=== PATIENT | female | born 1970 | race Caucasian/White ===

== ENCOUNTER → 2018-03-18 22:14 | Outpatient (CLI) | payer OTHER, SELFPAY | PROVIDERS: Visit Provider Nurse Practitioner | DX: R10.2 Pelvic and perineal pain (principal) | CPT/HCPCS: 87086; 87088 ==

== ENCOUNTER → 2020-01-18 | Outpatient (CLI) | payer BC, SELFPAY ==
[2020-01-18 17:13] VITALS: BMI 35.9
[2020-01-18 22:28] LABS: ALB/GLOB Ratio 1.1 RATIO (0.9-2.4); AST(SGOT) 20 U/L (15-37); Alanine Aminotransfer ALT/SGPT 30 U/L (13-56); Albumin, Serum 4.1 g/dL (3.2-5.0); Alkaline Phosphatase 62 U/L (45-117); Anion Gap 8 (5-15); BUN 17 mg/dL (7-18); Chloride 107 mmol/L (98-107); Creatinine, Serum 0.71 mg/dL (0.55-1.02); EST Glomerular Filtration Rate 92 mL/min (>60); Est Glom Filt Rate - Afr Amer 112 mL/min (>60); Globulin 3.9 g/dL (2.2-4.2); Glucose 115 mg/dL (74-106); Potassium 3.9 mmol/L (3.5-5.1); Sodium Level 142 mmol/L (136-145)
== END | disposition home or self-care (01) ==
PROVIDERS: Referring Provider Nurse Practitioner; Visit Provider Nurse Practitioner
DX: I10 Essential (primary) hypertension (principal)
CPT/HCPCS: 80053

== ENCOUNTER → 2021-01-24 | Outpatient (CLI) | payer BC, SELFPAY ==
[2021-01-24 19:38] VITALS: BMI 38.9
[2021-01-24 21:45] LABS: Absolute Neutrophil Count 3.3 X10^3/uL (2.0-7.7); Basophil# 0.03 X10^3/uL; Basophil% 0.4 % (0-1); Eosinophil# 0.08 X10^3/uL; Eosinophils% 1.1 % (0-5); Hematocrit 40.3 % (37-47); Hemoglobin 12.5 g/dL (12.0-15.0); Lymphocyte % 48.4 % (19-41); Mean Corpuscular Hgb 27.7 pg (27.0-32.0); Mean Corpuscular Volume 89.2 fL (81-99); Mean Platelet Vol. 10.8 fl (6.2-12.0); Monocyte# 0.25 X10^3/uL; Monocyte% 3.6 % (0-10); NRBC Flagged by Analyzer 0 % (0-5); Neutrophil # 3.26 X10^3/uL (2.7-7.7); Neutrophil % 46.4 % (47-70); Platelet Count 308 K/mm3 (150-450); RBC Distribution Width SD 42.3 fl (35.1-43.9); Red Blood Count 4.52 M/mm3 (4.2-5.4)
[2021-01-24 21:58] LABS: ALB/GLOB Ratio 1.1 RATIO (0.9-2.4); AST(SGOT) 29 U/L (15-37); Alanine Aminotransfer ALT/SGPT 54 U/L (13-56); Albumin, Serum 3.9 g/dL (3.2-5.0); Alkaline Phosphatase 64 U/L (45-117); Anion Gap 8 (5-15); BUN 12 mg/dL (7-18); BUN/Creat Ratio 14.1 RATIO (10-20); Calcium,Total 8.8 mg/dL (8.5-10.1); Chloride 108 mmol/L (98-107); Creatinine, Serum 0.85 mg/dL (0.55-1.02); EST Glomerular Filtration Rate 75 mL/min (>60); Est Glom Filt Rate - Afr Amer 90 mL/min (>60); Globulin 3.7 g/dL (2.2-4.2); Glucose 138 mg/dL (74-106); Potassium 3.6 mmol/L (3.5-5.1); Protein, Total 7.6 g/dL (6.4-8.2); Sodium Level 142 mmol/L (136-145)
== END | disposition home or self-care (01) ==
PROVIDERS: Referring Provider Nurse Practitioner; Visit Provider Nurse Practitioner
DX: I10 Essential (primary) hypertension (principal)
CPT/HCPCS: 80053; 85025

== ENCOUNTER → 2021-06-07 | Outpatient (CLI) | payer BC, SELFPAY ==
[2021-06-07 21:58] LABS: Absolute Lymphocyte Count 3.31 X10^3/uL (0.83-4.51); Absolute Neutrophil Count 3.2 X10^3/uL (2.0-7.7); Basophil# 0.03 X10^3/uL; Basophil% 0.4 % (0-1); Eosinophil# 0.07 X10^3/uL; Hematocrit 40.5 % (37-47); Hemoglobin 13.1 g/dL (12.0-15.0); Lymphocyte # 3.31 X10^3/ul (0.83-4.51); Lymphocyte % 47.9 % (19-41); Mean Corp Hgb Conc 32.3 g/dL (32-36); Mean Corpuscular Hgb 28.3 pg (27.0-32.0); Mean Corpuscular Volume 87.5 fL (81-99); Mean Platelet Vol. 10.7 fl (6.2-12.0); Monocyte# 0.25 X10^3/uL; Monocyte% 3.6 % (0-10); NRBC Flagged by Analyzer 0 % (0-5); Neutrophil # 3.23 X10^3/uL (2.7-7.7); Neutrophil % 46.8 % (47-70); Platelet Count 287 K/mm3 (150-450); RBC Distribution Width CV 13.2 % (11.6-14.6); RBC Distribution Width SD 42.7 fl (35.1-43.9); Red Blood Count 4.63 M/mm3 (4.2-5.4); White Blood Count 6.9 K/mm3 (4.4-11.0)
[2021-06-07 22:19] LABS: ALB/GLOB Ratio 0.9 RATIO (0.9-2.4); AST(SGOT) 25 U/L (15-37); Alanine Aminotransfer ALT/SGPT 42 U/L (13-56); Albumin, Serum 3.7 g/dL (3.2-5.0); Alkaline Phosphatase 72 U/L (45-117); Anion Gap 6 (5-15); BUN 12 mg/dL (7-18); BUN/Creat Ratio 15.2 RATIO (10-20); Calcium,Total 8.9 mg/dL (8.5-10.1); Chloride 107 mmol/L (98-107); Cholesterol 183 mg/dL (200); Creatinine, Serum 0.79 mg/dL (0.55-1.02); EST Glomerular Filtration Rate 81 mL/min (>60); Est Glom Filt Rate - Afr Amer 98 mL/min (>60); Globulin 3.9 g/dL (2.2-4.2); Glucose 225 mg/dL (74-106); High Density Lipoprotein 34 mg/dL; Potassium 3.6 mmol/L (3.5-5.1); Protein, Total 7.6 g/dL (6.4-8.2); Sodium Level 140 mmol/L (136-145); Triglycerides 395 mg/dL; Very Low Density Lipoprotein 79 mg/dL (5-40)
== END | disposition home or self-care (01) ==
PROVIDERS: PCP Nurse Practitioner; Visit Provider Nurse Practitioner
DX: R03.0 Elevated blood-pressure reading, without diagnosis of hypertension (principal); F51.01 Primary insomnia; E78.1 Pure hyperglyceridemia
CPT/HCPCS: 80053; 80061; 85025

== ENCOUNTER → 2021-07-05 | Outpatient (CLI) | payer BC, SELFPAY ==
[2021-07-05 21:44] LABS: Absolute Lymphocyte Count 3.64 X10^3/uL (0.83-4.51); Absolute Neutrophil Count 2.7 X10^3/uL (2.0-7.7); Basophil# 0.02 X10^3/uL; Basophil% 0.3 % (0-1); Eosinophil# 0.08 X10^3/uL; Eosinophils% 1.2 % (0-5); Hematocrit 41.7 % (37-47); Lymphocyte # 3.64 X10^3/ul (0.83-4.51); Lymphocyte % 54.2 % (19-41); Mean Corp Hgb Conc 31.2 g/dL (32-36); Mean Corpuscular Hgb 27.4 pg (27.0-32.0); Mean Corpuscular Volume 87.8 fL (81-99); Mean Platelet Vol. 10.6 fl (6.2-12.0); Monocyte# 0.25 X10^3/uL; Monocyte% 3.7 % (0-10); NRBC Flagged by Analyzer 0 % (0-5); Neutrophil # 2.72 X10^3/uL (2.7-7.7); Neutrophil % 40.5 % (47-70); Platelet Count 284 K/mm3 (150-450); RBC Distribution Width CV 12.7 % (11.6-14.6); Red Blood Count 4.75 M/mm3 (4.2-5.4); White Blood Count 6.7 K/mm3 (4.4-11.0)
[2021-07-05 22:28] LABS: AST(SGOT) 23 U/L (15-37); Alanine Aminotransfer ALT/SGPT 42 U/L (13-56); Albumin, Serum 3.8 g/dL (3.2-5.0); Alkaline Phosphatase 72 U/L (45-117); Anion Gap 9 (5-15); BUN 16 mg/dL (7-18); BUN/Creat Ratio 21.6 RATIO (10-20); Calcium,Total 8.9 mg/dL (8.5-10.1); Chloride 106 mmol/L (98-107); Creatinine, Serum 0.74 mg/dL (0.55-1.02); EST Glomerular Filtration Rate 87 mL/min (>60); Est Glom Filt Rate - Afr Amer 106 mL/min (>60); Follicle Stimulating Hormone 60.4 mIU/mL; Globulin 3.7 g/dL (2.2-4.2); Glucose 213 mg/dL (74-106); Luteinizing Hormone 26.1 mIU/mL; Potassium 3.6 mmol/L (3.5-5.1); Protein, Total 7.5 g/dL (6.4-8.2); Sodium Level 140 mmol/L (136-145); Thyroid Stim Hormone (TSH) 2.11 uIU/mL (0.358-3.74)
[2021-07-07 14:27] LABS: ANTINUCLEAR ANTIBODIES DIRECT Negative (Negative)
== END | disposition home or self-care (01) ==
PROVIDERS: PCP Nurse Practitioner; Referring Provider Nurse Practitioner; Visit Provider Nurse Practitioner
DX: N95.1 Menopausal and female climacteric states (principal); L29.9 Pruritus, unspecified
CPT/HCPCS: 80053; 83001; 83002; 84443; 85025; 86038; 86140; 86225; 86235

== ENCOUNTER → 2023-01-16 | Outpatient (CLI) | payer BC, SELFPAY | END | disposition home or self-care (01) | PROVIDERS: PCP Nurse Practitioner; Visit Provider Nurse Practitioner | DX: R35.0 Frequency of micturition (principal); R10.9 Unspecified abdominal pain | CPT/HCPCS: 87086 ==

== ENCOUNTER → 2023-05-15 | Outpatient (CLI) | payer BC, SELFPAY ==
[2023-05-15 20:32] LABS: Absolute Lymphocyte Count 3.35 X10^3/uL (0.83-4.51); Absolute Neutrophil Count 2.9 X10^3/uL (2.0-7.7); Basophil# 0.02 X10^3/uL; Basophil% 0.3 % (0-1); Eosinophil# 0.07 X10^3/uL; Eosinophils% 1.1 % (0-5); Hemoglobin 12.9 g/dL (12.0-15.0); Lymphocyte # 3.35 X10^3/ul (0.83-4.51); Lymphocyte % 51.2 % (19-41); Mean Corp Hgb Conc 32.3 g/dL (32-36); Mean Corpuscular Hgb 28.4 pg (27.0-32.0); Mean Corpuscular Volume 87.9 fL (81-99); Mean Platelet Vol. 10.7 fl (6.2-12.0); Monocyte# 0.24 X10^3/uL; Monocyte% 3.7 % (0-10); NRBC Flagged by Analyzer 0 % (0-5); Neutrophil # 2.85 X10^3/uL (2.7-7.7); Neutrophil % 43.5 % (47-70); Platelet Count 266 K/mm3 (150-450); RBC Distribution Width CV 13.5 % (11.6-14.6); RBC Distribution Width SD 43.2 fl (35.1-43.9); Red Blood Count 4.55 M/mm3 (4.2-5.4); White Blood Count 6.5 K/mm3 (4.4-11.0)
[2023-05-15 21:00] LABS: ALB/GLOB Ratio 1.1 RATIO (0.9-2.4); AST(SGOT) 14 U/L (15-37); Alanine Aminotransfer ALT/SGPT 25 U/L (13-56); Albumin, Serum 3.7 g/dL (3.2-5.0); Alkaline Phosphatase 65 U/L (45-117); Anion Gap 5 (5-15); BUN 15 mg/dL (7-18); Calcium,Total 8.6 mg/dL (8.5-10.1); Chloride 110 mmol/L (98-107); Cholesterol 171 mg/dL (200); EST Glomerular Filtration Rate 111 mL/min (>60); Est Glom Filt Rate - Afr Amer 134 mL/min (>60); Globulin 3.4 g/dL (2.2-4.2); Glucose 175 mg/dL (74-106); High Density Lipoprotein 33 mg/dL; Potassium 3.9 mmol/L (3.5-5.1); Protein, Total 7.1 g/dL (6.4-8.2); Sodium Level 140 mmol/L (136-145); Thyroid Stim Hormone (TSH) 1.57 uIU/mL (0.358-3.74); Triglycerides 252 mg/dL; Very Low Density Lipoprotein 50 mg/dL (5-40)
== END | disposition home or self-care (01) ==
PROVIDERS: PCP Nurse Practitioner; Visit Provider Nurse Practitioner
DX: E11.65 Type 2 diabetes mellitus with hyperglycemia (principal); I10 Essential (primary) hypertension
CPT/HCPCS: 80053; 80061; 84443; 85025

== ENCOUNTER → 2023-12-11 | Outpatient (CLI) | payer BC, SELFPAY ==
[2023-12-11 22:22] LABS: Uric Acid 5.6 mg/dL (2.6-6.0)
== END | disposition home or self-care (01) ==
PROVIDERS: PCP Nurse Practitioner; Visit Provider Nurse Practitioner
DX: D16.21 Benign neoplasm of long bones of right lower limb (principal); M10.9 Gout, unspecified
CPT/HCPCS: 84550

== ENCOUNTER → 2024-12-25 | Outpatient (CLI) | payer BC, SELFPAY ==
[2024-12-25 01:42] LABS: Absolute Lymphocyte Count 4.02 X10^3/uL (0.83-4.51); Absolute Neutrophil Count 4.6 X10^3/uL (2.0-7.7); Basophil# 0.03 X10^3/uL; Basophil% 0.3 % (0-1); Eosinophil# 0.07 X10^3/uL; Eosinophils% 0.8 % (0-5); Hematocrit 40.3 % (37-47); Hemoglobin 12.8 g/dL (12.0-15.0); Lymphocyte # 4.02 X10^3/ul (0.83-4.51); Lymphocyte % 44.3 % (19-41); Mean Corp Hgb Conc 31.8 g/dL (32-36); Mean Corpuscular Hgb 27.9 pg (27.0-32.0); Mean Corpuscular Volume 87.8 fL (81-99); Mean Platelet Vol. 11.5 fl (6.2-12.0); Monocyte# 0.37 X10^3/uL; Monocyte% 4.1 % (0-10); NRBC Flagged by Analyzer 0 % (0-5); Neutrophil # 4.57 X10^3/uL (2.7-7.7); Neutrophil % 50.3 % (47-70); Platelet Count 282 K/mm3 (150-450); RBC Distribution Width CV 13.2 % (11.6-14.6); RBC Distribution Width SD 42.5 fl (35.1-43.9); Red Blood Count 4.59 M/mm3 (4.2-5.4); White Blood Count 9.1 K/mm3 (4.4-11.0)
[2024-12-25 01:51] LABS: ALB/GLOB Ratio 1.6 RATIO (0.9-2.4); AST(SGOT) 26 U/L (<=31); Alanine Aminotransfer ALT/SGPT 34 U/L (<=34); Albumin, Serum 4.4 g/dL (3.5-5.0); Alkaline Phosphatase 58 U/L (35-104); Anion Gap 14 (5-15); BUN 17 mg/dL (4-19); BUN/Creat Ratio 24.1 RATIO (10-20); Calcium,Total 9.5 mg/dL (7.6-11.0); Carbon Dioxide 21.7 mmol/L (21.0-32.0); Chloride 106 mmol/L (98-108); Cholesterol 166 mg/dL (<=200); Creatinine, Serum 0.72 mg/dL (0.70-1.20); EST Glomerular Filtration Rate 98 (>60); Globulin 2.7 g/dL (2.2-4.2); Glucose 180 mg/dL (70-99); High Density Lipoprotein 28 mg/dL; Low Density Lipoprotein Calc. 38 mg/dL; Potassium 3.9 mmol/L (3.3-5.1); Protein, Total 7.1 g/dL (5.9-8.4); Sodium Level 142 mmol/L (133-145); Total Bilirubin 0.39 mg/dL (0.00-1.30); Triglycerides 500 mg/dL; Very Low Density Lipoprotein 100 mg/dL (5-40); cholesterol:hdl ratio screen 5.95
== END | disposition home or self-care (01) ==
PROVIDERS: PCP Nurse Practitioner; Referring Provider Nurse Practitioner; Visit Provider Nurse Practitioner
DX: E11.8 Type 2 diabetes mellitus with unspecified complications (principal); R03.0 Elevated blood-pressure reading, without diagnosis of hypertension; F51.01 Primary insomnia; E78.1 Pure hyperglyceridemia
CPT/HCPCS: 80053; 80061; 85025

== ENCOUNTER → 2025-06-30 | Outpatient (CLI) | payer BC, SELFPAY ==
--- OUTSIDE RECORDS SUMMARY | 2025-06-30 22:10 | XMS RPT_ITS | CCD ---
Author Organization [facility] ion [facility] Care Team Providers Care Spot Remover Name Role Phone Unavailable Primary Care Provider UnavailConnor Medrano Primary Care Provider [phone] Unavailable Primary Care Provider UnavailRigo Martines MD Primary Care Provider Rigo Young MD Primary Care Provider Rigo Young MD Primary Care Provider TAYLOR PAVON Attending Unavailable TAYLOR PAVON Referring Unavailable Unavailable Primary Care Provider Unavailjazzy Zapata RETINAL SURGEON-C, Herlinda Primary Care Provider Benny RETINAL SURGEON-C, Herlinda Attending Provider Benny RETINAL SURGEON-C, Herlinda Referring Provider [phone] Herlinda Zapata Referring Unavailable Herlinda Zapata Attending Unavailable Benny Herlinda Primary Care Unavailable Zapata BANANA GRADER.COAL WASHER, Herlinda Jeronimo Primary Care Provide r DODIE REY Attending Unava ilable BENNY, HERLINDA L Primary Care Unavailable ZAPATA, HERLINDA L Referring Unavailable RELL HUDDLESTON Admitting Unavailabl DODIE Joseph Referring Unava ilable BENNY, HERLINDA L Primary Care Unavailable LOUIS HINKLE Attending Unavailable JOSEPH OTT Consulting Unavailjazzy e JOSEPH OTT Attending Unavailabl e BENNY, HERLINDA L Primary Care Unavailable JOSEPH OTT Attending Unavailabl e ZAPATA, HERLINDA L Primary Care Unavailable Allergies Allergy Classification Reported Allergen(s) Allergy Type Date of Onset Reaction(s) Facility (5 sources) Penicillins; Translations: [PENICILLINS] Propensity to adverse reactions to drug 07-21-20 10 [facility] Work Phone: (9 sources) Penicillins Drug Allergy 03-18-20 18 [facility] (9 sources) Sulfamethoxazole Allergy to substance 03-18-20 [facility] (9 sources) Topiramate Allergy to substance 06-22-20 22 [facility] (11 sources) Trimethoprim Drug Allergy 03-18-20 20 headaches ahives [facility] (1 source) metFORMIN Drug Allergy 01-04-20 23 rash crave sugar and styesand diarrhea [facility] (2 sources) Penicillins Allergy to substance 03-18-20 18 u [facility] (2 sources) Sulfamethoxazole Drug Allergy 03-18-20 [facility] ([facility]) topiramate Drug Allergy 06-22-20 22 kidney stones [facility] (1 source) dulaglutide Drug Allergy 11-22-19 24 yeast infection [facility] (1 source) empagliflozin Drug Allergy 03-22-20 23 Itching [facility] (1 source) dulaglutide Drug Allergy 11-22-19 24 [facility] (1 source) empagliflozin Drug Allergy 03-22-20 23 [facility] (1 source) Penicillins Drug allergy (disorder) 03-18-20 18 [facility] (1 source) Sulfamethoxazole Drug Allergy 03-18-20 20 [facility] (1 source) topiramate Drug Allergy 06-22-20 22 [facility] (1 source) Trimethoprim Drug Allergy 03-18-20 [facility] (2 sources) Penicillins Propensity to adverse reactions to drug 07-21-20 10 Unknown [facility] Medications Current Medications Medication Drug Class(es) Dates Sig (Normalized) Sig (Original) Blood-Glucose Meter (Onetouch Ultra2 Meter) misc (2 sources) Start: 01-07-2023 Blood-Glucose Meter (Onetouch Ultra2 Meter) misc Active 0 .Route January 07, 2023 12:00am As directed fluticasone propionate 0.05 mg/actuat metered dose nasal spray (3 sources) Corticosteroid Start: 09-06-2019 take 2 spray(s) nasal route once daily fluticasone (FLONASE) 50 MCG/ACT nasal spray 2 sprays by Each Nostril route daily 1 Bottle 0 09/06/2019 Active metFORMIN hydrochloride 1000 mg oral tablet (20 sources) Biguanide Start: 03-25-2025 take 1 tablet by mouth every twelve hours metFORMIN (GLUCOPHAGE) 1,000 mg tablet Take 1 tablet by mouth every 12 hours. 03/25/2025 Active Start: 12-24-2024 take 1 tablet by tiffany th twice daily Metformin 1,000 mg tablet Active 1000 mg PO TWICE A DAY 180 December 24, 2024 12:00am Start: 11-22-2023 End: 11-22-2023 take 1 tablet by mouth three times daily Metformin 500 mg tablet Discontinued 500 mg PO THREE TIMES A DAY November 22, 2023 4:23pm November 22, 2023 4:29pm Start: 11-22-2023 End: 12-24-2024 take 1 tablet by mouth twice daily Metformin 850 mg tablet Discontinued 850 mg PO TWICE A DAY 180 August 28, 2024 4:18pm December 24, 2024 3:07pm Start: 04-15-2023 End: 11-22-2023 take 1 tablet by mouth twice daily Metformin 500 mg tablet Discontinued 500 mg PO TWICE A DAY 90 July 15, 2023 4:12pm November 22, 2023 4:23pm Start: 07-06-2021 End: 09-26-2021 Metformin 500 mg tablet Disc ontinued 500 mg PO TWICE A DAY 180 September 04, 2021 1:58pm September 26, 2021 7:52pm start with one a day for 10 days then 2 x a day 24 hr metoprolol succinate 50 mg extended release oral tablet (20 sources) beta-Adrenergic Raya Start: 09-04-2022 metopr olol succinate XL (Toprol-XL) 50 MG 24 hr tablet 09/04/2022 Active Start: 05-10-2022 End: 12-24-2024 take 1 tablet by mouth once daily Metoprolol Succinate 50 mg tablet extended release 24 hr Active 50 mg PO daily 90 December 24, 2024 3:08pm rimegepant 75 mg disintegrating oral tablet (19 sources) Start: 05-10-2022 End: 10-23-2024 take 1 tablet by mouth once as needed for headache Rimegepant (Nurtec Odt) 75 mg tablet,disintegrating Active 75 mg PO ONCE as needed for migraine headache October 23, 2024 12:34pm as a single dose dissolve on tongue SUMAtriptan 100 mg oral tablet (20 sources) Serotonin-1b and Serotonin-1d Receptor Agonist Start: 03-13-2022 SUMAtriptan (Imitrex) 100 MG tablet take 1 tablet by mouth ONCE MAY START WITH 1 OR 1/2 TABLET repeat... (REFER TO PRESCRIPTION NOTES). 03/13/2022 Active Start: 11-12-2018 End: 07-15-2023 Sumatriptan Succinate 100 mg tablet Discontinued 100 mg PO ONCE September 04, 2021 1:59pm July 15, 2023 4:17pm may start with 1 or 1/2 tab repeat in 20-40 min if no relief max is 200 mg/ 24 hrs SUMAtriptan (IMI TREX) 100 MG tablet Completed/Discontinued Medications Medication Drug Class(es) Dates Sig (Normalized) Sig (Original) [id number] 200 actuat albuterol 0.09 mg/actuat metered dose inhaler (4 sources) beta2-Adrenergic Agonist Start: 10-30-2019 End: 01-18-2020 Albuterol Sulfate (Ventolin Hfa) 90 mcg/actuation HFA aerosol inhaler Discontinued 2 NMA INHALATION Q4H as needed for asthma October 30, 2019 12:00am January 18, 2020 5:00pm Start: 10-30-2019 End: 01-18-2020 take 1 puff(s) by inhalation every four hours Albuterol Sulfate (Ventolin Hfa) 90 mcg/actuation HFA aerosol inhaler Discontinued 2 PUFF INHALATION Q4H October 30, 2019 12:00am January 18, 2020 5:00pm Start: 10-09-2018 End: 10-30-2019 Albuterol Sulfate (Proair Hf a) 90 mcg/actuation HFA aerosol inhaler Discontinued 2 NMA INHALATION EVERY 6 HOURS as needed for bronchospasm October 09, 2018 1:00am October 30, 2019 6:25pm Start: 10-09-2018 End: 10-30-2019 take 1 puff(s) by inhalation every six hours Albuterol Sulfate (Proair Hfa) 90 mcg/actuation HFA aerosol inhaler Discontinued 2 PUFF INHALATION EVERY 6 HOURS 8 October 09, 2018 1:00am October 30, 2019 6:25pm azithromycin 250 mg oral tablet (2 sources) Macrolide Antimicrobial Start: 10-09-2018 End: 10-14-2018 take 2 tablets by mouth once daily, then take 1 tablet by mouth once daily at mealtime Azithromycin 250 mg tablet Discontinued 250 mg PO daily 6 5 October 09, 2018 1:00am October 13, 2018 12:00am October 14, 2018 12:07am 2 po qd for 1 day then 1 po qd for 4 days with food or after eating Blood-Glucose Sensor (Dexcom G6 Sensor) device (1 source) Start: 09-14-2024 End: 12-24-2024 Blood-Glucose Sensor (Dexcom G6 Sensor) device Discontinued 0 .Route 3 September 14, 2024 1:00am December 24, 2024 3:08pm change every 1 1/2 weeks for diabetic monitoring cefdinir 300 mg oral capsule (2 sources) Cephalosporin Antibacterial Start: 05-10-2022 End: 06-22-2022 take 1 capsule by mouth twice daily Cefdinir 300 mg capsule Discontinued 300 mg PO TWICE A DAY May 10, 2022 12:00am June 22, 2022 7:26pm cefuroxime 500 mg oral tablet (2 sources) Cephalosporin Antibacterial Start: 09-26-2018 End: 10-06-2018 take 1 tablet by mouth every twelve hours Cefuroxime Axetil 500 mg tablet Discontinued 500 mg PO Q12H 24 05September 26, 2018 1:00am October 05, 2018 1:00am October 06, 2018 1:10am ciprofloxacin 500 mg oral tablet (10 sources) Quinolone Antimicrobial Start: 01-16-2023 End: 2023 take 1 tablet by mouth twice daily Ciprofloxacin Hcl (Cipro) 500 mg tablet Discontinued 500 mg PO TWICE A DAY January 16, 2023 12:00am 2023 3:17pm Start: 11-12-2018 End: 11-05-2019 take 1 tablet by mouth twice daily Ciprofloxacin Hcl (Cipro) 500 mg tablet Discontinued 500 mg PO TWICE A DAY October 30, 2019 6:39pm November 05, 2019 5:09pm Start: 03-18-2018 End: 10-09-2018 take 1 tablet by mouth twice daily Ciprofloxacin Hcl (Cipro) 500 mg tablet Discontinued 500 mg PO TWICE A DAY March 18, 2018 12:00am October 09, 2018 7:16pm desonide 0.5 mg/ml topical cream (3 sources) Corticosteroid Start: 10-17-2022 End: 11-13-2022 desonide (DesOwen) 0.05 % cream apply to affected area twice a day for up to 14 days then if needed for FLARES 0 10/17/2022 11/13/2022 Discontinued (Therapy completed) doxycycline hyclate 100 mg oral capsule (3 sources) Tetracycline-class Drug Start: 03-14-2023 End: 04-15-2023 take 1 capsule by mouth twice daily Doxycycline Hyclate 100 mg capsule Discontinued 100 mg PO TWICE A DAY March 14, 2023 12:00am April 15, 2023 3:09pm Start: 10-16-2018 End: 10-30-2019 take 1 tablet by mouth twice daily Doxycycline Hyclate 100 mg tablet Discontinued 100 mg PO TWICE A DAY October 16, 2018 12:00am October 30, 2019 6:26pm 0.5 ml dulaglutide 1.5 mg/ml auto-injector (2 sources) GLP-1 Receptor Agonist Start: 01-03-2023 End: 03-14-2023 Dulaglutide (Trulicity) 0.75 mg/0.5 mL pen injector Discontinued 0.75 mg SC EVERY WEEK 2.5 30 January 03, 2023 12:00am March 14, 2023 3:25pm empagliflozin 10 mg oral tablet (2 sources) Sodium-Glucose Cotransporter 2 Inhibitor Start: 01-03-2023 End: 2023 take 1 tablet by mouth once daily Empagliflozin (Jardiance) 10 mg tablet Discontinued 20 mg PO DAILY January 03, 2023 12:00am 2023 3:20pm Flash Glucose Sensor (Freestyle Fahad 2 Sensor) kit (1 source) Start: 09-10-2024 End: 12-24-2024 Flash Glucose Sensor (Freestyle Fahad 2 Sensor) kit Discontinued 0 .Route 1 September 10, 2024 1:00am December 24, 2024 3:08pm As directed fluconazole 150 mg oral tablet (3 sources) Azole Antifungal Start: 01-14-2023 End: 03-14-2023 Fluconazole 150 mg tablet Discontinued 150 mg PO Every 3 Days 06 03February 21, 2023 8:32pm March 14, 2023 3:25pm folic acid 1 mg oral tablet (2 sources) Start: 09-21-2022 End: 03-14-2023 take 1 tablet by mouth every week Folic Acid 1 mg tablet Discontinued 1 mg PO EVERY WEEK 01 01September 21, 2022 1:00am March 14, 2023 3:25pm glimepiride 2 mg oral tablet (3 sources) Sulfonylurea Start: 05-15-2023 End: 11-22-2023 take 1 tablet by mouth twice daily Glimepiride 2 mg tablet Discontinued 2 mg PO TWICE A DAY July 22, 2023 1:27pm November 22, 2023 4:22pm hydroCHLOROthiazide 12.5 mg oral tablet (11 sources) Thiazide Diuretic Start: 11-25-2018 End: 06-07-2021 take 1 tablet by mouth once daily Hydrochlorothiazide 12.5 mg tablet Discontinued 12.5 mg PO DAILY January 24, 2021 7:59pm June 07, 2021 5:46pm hydrochlorothiaz greg (MICROZIDE) 12.5 MG capsule hydrOXYzine hydrochloride 10 mg oral tablet (5 sources) Antihistamine Start: 02-21-2023 End: 03-14-2023 take 1 tablet by mouth three to four times daily as needed Hydroxyzine Hcl 10 mg tablet Discontinued 10 mg PO 3 to 4 times per day as needed for itching February 21, 2023 12:00am March 14, 2023 3:24pm Start: 07-05-2021 End: 09-26-2021 take 1-2 tablets by mouth three to four times daily as needed Hydroxyzine Hcl 10 mg tablet Discontinued 10 mg PO 3 to 4 times per day as needed for itching July 05, 2021 1:00am September 26, 2021 7:52pm 1-2 tabs 4-6 x a day Start: 11-05-2019 End: 05-05-2020 take 1 tablet by mouth three to four times daily as needed for anxiety Hydroxyzine Hcl 10 mg tablet Discontinued 10 mg PO 3 to 4 times per day as needed for anxiety November 05, 2019 12:00am May 05, 2020 7:35pm 1 ml ketorolac tromethamine 30 mg/ml cartridge (1 source) Nonsteroidal Anti-inflammatory Drug, Cyclooxygenase Inhibitor Start: 09-06-2019 End: 09-06-2019 ketorolac (TORADOL) injection 30 mg levoFLOXacin 500 mg oral tablet (2 sources) Quinolone Antimicrobial Start: 05-05-2020 End: 01-24-2021 take 1 tablet by mouth once daily Levofloxacin 500 mg tablet Discontinued 500 mg PO DAILY May 05, 2020 12:00am January 24, 2021 7:39pm 24 hr metFORMIN hydrochloride 500 mg / SITagliptin 50 mg extended release oral tablet (2 sources) Biguanide, Dipeptidyl Peptidase 4 Inhibitor Start: 2023 End: 04-15-2023 Sitagliptin Phos-Metformin (Janumet Xr) 50-500 mg tablet, ER multiphase 24 hr Discontinued 1 {tbl} PO DAILY February 12, 2023 12:38pm April 15, 2023 3:10pm methotrexate 2.5 mg oral tablet (2 sources) Folate Analog Metabolic Inhibitor Start: 09-21-2022 End: 03-14-2023 take 3 tablets by mouth every week Methotrexate Sodium 2.5 mg tablet Discontinued 7.5 mg PO EVERY WEEK September 21, 2022 1:00am March 14, 2023 3:24pm Start: 09-21-2022 take 7.5 mg by mouth every week Methotrexate Sodium Active 7.5 MG PO EVERY WEEK September 21, 2022 1:00am 2 ml ondansetron 2 mg/ml injection (1 source) Serotonin-3 Receptor Antagonist Start: 09-06-2019 End: 09-06-2019 ondansetron (ZOFRAN) injection 4 mg oseltamivir 75 mg oral capsule (2 sources) Neuraminidase Inhibitor Start: 10-09-2018 End: 10-14-2018 take 1 capsule by mouth twice daily Oseltamivir 75 mg capsule Discontinued 75 mg PO TWICE A DAY 05 09October 09, 2018 1:00am October 13, 2018 12:00am October 14, 2018 12:07am phenazopyridine hydrochloride 200 mg oral tablet (2 sources) Start: 01-16-2023 End: 03-14-2023 take 1 tablet by mouth three times daily as needed for pain Phenazopyridine 200 mg tablet Discontinued 200 mg PO THREE TIMES A DAY as needed for pain January 16, 2023 12:00am March 14, 2023 3:24pm predniSONE 10 mg oral tablet (8 sources) Start: 09-21-2022 End: 09-25-2022 Prednisone 10 mg tablet Discontinued 20 mg PO TWICE A DAY as needed for eczema rash an psoriasis 30 September 21, 2022 1:00am September 24, 2022 1:00am September 25, 2022 1:05am 2 po bid 4D,1 po bid for 4 D, 1 po qd for 4 D 1/2 po qd for 2 days Start: 09-21-2022 End: 09-25-2022 Prednisone Discontinued 20 M G PO TWICE A DAY 30 September 21, 2022 1:00am September 25, 2022 1:05am 2 po bid 4D,1 po bid for 4 D, 1 po qd for 4 D 1/2 po qd for 2 days Start: 05-05-2021 End: 06-07-2021 Prednisone 10 mg tablet Disc ontinued 20 mg PO TWICE A DAY as needed for pruritis 02 12May 05, 2021 12:00am June 07, 2021 5:46pm 2 po bid 4D,1 po bid for 4 D, 1 po qd for 4 D 1/2 po qd for 2 days Start: 05-05-2021 End: 06-07-2021 Prednisone Discontinued 20 M G PO TWICE A DAY 02 12May 05, 2021 12:00am June 07, 2021 5:46pm 2 po bid 4D,1 po bid for 4 D, 1 po qd for 4 D 1/2 po qd for 2 days Start: 03-18-2020 End: 03-28-2020 take 2 tablets by mouth once daily Prednisone 20 mg tablet Discontinued 40 mg PO DAILY 24 05March 18, 2020 12:00am March 27, 2020 12:00am March 28, 2020 12:02am Start: 03-18-2020 End: 03-28-2020 take 40 mg by mouth once daily Prednisone Discontinued 40 MG PO DAILY 24 05March 18, 2020 12:00am March 28, 2020 12:02am Start: 10-09-2018 End: 10-17-2018 take 2 tablets by mouth twice daily as needed, then take 1 tablet by mouth twice daily as needed, then take 0.5 tablet by mouth once daily as needed Prednisone 10 mg tablet Discontinued 20 mg PO TWICE A DAY as needed for coughing 30 October 09, 2018 1:00am October 16, 2018 12:00am October 17, 2018 12:12am 2 po bid 4D,1 po bid for 4 D, 1 po qd for 4D 1/2 po qd for2 D Start: 10-09-2018 End: 10-17-2018 Prednisone Discontinued 20 M G PO TWICE A DAY 30 October 09, 2018 1:00am October 17, 2018 12:12am 2 po bid 4D,1 po bid for 4 D, 1 po qd for 4D 1/2 po qd for2 D 0.25 mg, 0.5 mg dose 1.5 ml semaglutide 1.34 mg/ml pen injector (4 sources) Start: 08-28-2024 End: 12-24-2024 Semaglutide 0.25 mg or 0.5 mg(2 mg/1.5 mL) pen injector Discontinued 0.5 mg SC EVERY WEEK 4.862 90 August 31, 2024 12:31pm December 24, 2024 3:08pm Semaglutide (1 source) Start: 07-14-2024 End: 08-28-2024 Semaglutide (Ozempic) 0.25 mg or 0.5 mg (2 mg/3 mL) pen injector Discontinued 0.25 mg SC EVERY WEEK July 14, 2024 1:00am August 28, 2024 4:07pm for 4 weeks 50 ml sodium chloride 9 mg/ml injection (1 source) Start: 09-06-2019 End: 09-06-2019 0.9 % sodium chloride bolus tacrolimus 0.001 mg/mg topical ointment (3 sources) Calcineurin Inhibitor Immunosuppressant Start: 11-01-2022 End: 11-13-2022 tacrolimus (Protopic) 0.1 % ointment apply to affected area up to twice a day for 2 weeks 0 11/01/2022 11/13/2022 Discontinued (Therapy completed) tamsulosin hydrochloride 0.4 mg oral capsule (2 sources) alpha-Adrenergic Raya Start: 01-16-2023 End: 02-22-2023 take 1 capsule by mouth once daily Tamsulosin 0.4 mg capsule Discontinued 0.4 mg PO DAILY January 16, 2023 12:00am February 22, 2023 10:20am topiramate 50 mg oral tablet (9 sources) Start: 11-25-2018 End: 06-07-2021 take 1 tablet by mouth twice daily Topiramate 50 mg tablet Discontinued 50 mg PO TWICE A DAY 60 February 24, 2021 6:34pm June 07, 2021 5:46pm triamcinolone acetonide 1 mg/ml topical cream (3 sources) Corticosteroid Start: 10-17-2022 End: 11-13-2022 triamcinolone (Kenalog) 0.1 % cream apply twice a day for 2 weeks ON affected area OF body 0 10/17/2022 11/13/2022 Discontinued (Therapy completed) Problems Active Problems Problem Classification Problem Date Documented Date Episodic/Chronic Abdominal pain (4 sources) Flank pain; Translations: [Unspecified abdominal pain] 03-18-2018 Episodic Allergic reactions (2 sources) Allergic reaction; Translations: [Allergy, unspecified, initial encounter] 05-05-2021 Episodic Anxiety disorders (2 sources) Anxiety; Translations: [Other specified anxiety disorders] 11-05-2019 Chronic Calculus of urinary tract (10 sources) Ureteric stone; Translations: [Calculus of ureter] Onset: 04-14-2025 04-15-2025 Episodic Chronic obstructive pulmonary disease and bronchiectasis (2 sources) Bronchitis; Translations: [Bronchitis, not specified as acute or chronic] 10-09-2018 Episodic Diabetes mellitus with complications (4 sources) Hyperglycemia due to type 2 diabetes mellitus; Translations: [Type 2 diabetes mellitus with hyperglycemia] Onset: 12-31-2024 01-16-2023 Chronic Comment on above: spilling sugar into urine Diabetes mellitus without complication (12 sources) Type 2 diabetes mellitus without complication; Translations: [Type 2 diabetes mellitus without complications] Onset: 11-13-2022 Chronic Diabetes mellitus without complication (2 sources) Hyperglycemia; Translations: [Hyperglycemia, unspecified] 09-26-2021 Episodic Diseases of white blood cells (2 sources) Leukocytosis; Translations: [Elevated white blood cell count, unspecified] Onset: 04-15-2025 04-15-2025 Chronic Disorders of lipid metabolism (4 sources) Mixed hyperlipidemia; Translations: [Mixed hyperlipidemia] Chronic E Codes: Adverse effects of medical drugs (2 sources) Adverse reaction to drug; Translations: [Adverse effect of unspecified drugs, medicaments and biological substances, initial encounter] 01-04-2023 Episodic Essential hypertension (14 sources) Essential hypertension; Translations: [Essential (primary) hypertension] Onset: 11-13-2022 Chronic Genitourinary congenital anomalies (1 source) Congenital occlusion of ureteropelvic junction; Translations: [Hydronephrosis with ureteropelvic junction (UPJ) obstruction] Onset: 04-14-2025 Chronic Genitourinary symptoms and ill-defined conditions (2 sources) Increased frequency of urination; Translations: [Frequency of micturition] 01-16-2023 Episodic Gout and other crystal arthropathies (1 source) Gout; Translations: [Gout, unspecified] 12-11-2023 Chronic Headache; including migraine (16 sources) Migraine without aura, not refractory ; Translations: [Migraine without aura, not intractable, without status migrainosus] Onset: 11-13-2022 Chronic Influenza (2 sources) Influenza; Translations: [Influenza due to unidentified influenza virus with other respiratory manifestations] 10-09-2018 Episodic Menopausal disorders (2 sources) Menopausal flushing; Translations: [Menopausal and female climacteric states] 07-05-2021 Chronic Mycoses (1 source) Candidal vulvovaginitis; Translations: [Candidal vulvovaginitis] 04-15-2023 Episodic Comment on above: resolved for now Other and unspecified benign neoplasm (1 source) Subungual exostosis; Translations: [Benign neoplasm of short bones of unspecified upper limb] 11-22-2023 Episodic Other circulatory disease (2 sources) Elevated blood-pressure reading without diagnosis of hypertension; Translations: [Elevated blood-pressure reading, without diagnosis of hypertension] 11-25-2018 Episodic Other inflammatory condition of skin (14 sources) Psoriasis; Translations: [Psoriasis, unspecified] Onset: 11-13-2022 Chronic Other inflammatory condition of skin (2 sources) Pruritic rash; Translations: [Other prurigo] 09-21-2022 Episodic Other inflammatory condition of skin (3 sources) Pruritus of skin; Translations: [Pruritus, unspecified] 05-05-2021 Episodic Comment on above: resolved Other nutritional; endocrine; and metabolic disorders (2 sources) Obese class II; Translations: [Obesity, Class II, BMI 35-39.9] Onset: 04-14-2025 04-15-2025 Chronic Other nutritional; endocrine; and metabolic disorders (2 sources) Obese class I; Translations: [Obesity, Class I, BMI 30-34.9] Onset: 04-15-2025 04-15-2025 Chronic Other screening for suspected conditions (not mental disorders or infectious disease) (11 sources) Patient encounter status; Translations: [Encounter for screening for lipoid disorders] Onset: 07-13-2024 Episodic Other upper respiratory infections (3 sources) Recurrent acute sinusitis; Translations: [Acute bacterial sinusitis] Episodic Otitis media and related conditions (2 sources) Acute left otitis media; Translations: [Otitis media, unspecified, left ear] 10-09-2018 Episodic Poisoning by other medications and drugs (2 sources) Allergic reaction caused by sulfonamide; Translations: [Poisoning by sulfonamides, accidental (unintentional), initial encounter] 03-18-2020 Episodic Residual codes; unclassified (2 sources) Insomnia; Translations: [Insomnia, unspecified] 11-05-2019 Episodic Spondylosis; intervertebral disc disorders; other back problems (1 source) Other intervertebral disc displacement, lumbar region; Translations: [Herniation of intervertebral disc of lumbar spine] 12-24-2024 Chronic Spondylosis; intervertebral disc disorders; other back problems (1 source) Thoracic nerve root pain; Translations: [Radiculopathy, thoracic region] 12-24-2024 Episodic Unclassified (1 source) Autogenerated Problem Onset: 04-14-2025 04-14-2025 Past or Other Problems Problem Classification Problem Date Documented Da te Episodic/Chronic Malaise and fatigue (1 source) Malaise and fatigue Episodic Nonspecific chest pain (1 source) Chest pain Episodic Unclassified (2 sources) ablation 03-03-2022 Results Test Name Value Interpretation Reference Range Facility [facility] 06-04-2025 [facility] Office Visit ([facility] ) CRYSTAL SCHULTZ ([id number]) 1970 F Date Time Provider Department 06/04/25 10:20 AM JOSEPH OTT During your visit today, we recorded the following information about you: Joseph Ott MD 06/04/2025 11:36 AM Signed Procedure performed: Bilateral renal ultrasound Indication for procedure: History of left hydronephrosis due to a stone in the lower end of the left ureter Description of procedure: Left kidney was scanned, kidney size was 10.0 x 4.8 cm No evidence of tumor stones or hydronephrosis Renal cortex is well-preserved On the right side renal ultrasound showing presence of a 5 mm stone in the right upper pole No evidence of tumor or cyst or hydronephrosis Impression: Right renal stone 5 mm nonobstructing Litholink ordered Allergies As of Date: 06/04/2025 Noted Allergy Reaction PENICILLINS 07/21/2010 16 - Unknown Date Reviewed: 06/04/2025 Reviewed by: Amanda Randle MA - Fully Assessed Reason for Visit: Renal calculi [Other] Cmt: 6wk kidney US. Primary Visit Diagnosis:Kidney stone [N20.0] Order(s):UA DIP, URINE (POC) [5151685] Order #: [id number]. #:[id number] LITHOLINK CKD PROGRAM [8942413] Order #: [id number] FUTURE CALCIUM, TOTAL [SQCA] Order #: [id number] FUTURE CREATININE BLD [SQCRET] Order #: [id number] FUTURE MAGNESIUM [SQMG1] Order #: [id number] FUTURE CARBON DIOXIDE CO2 [SQCO2] Order #: [id number] FUTURE CHLORIDE BLD [SQCL] Order #: [id number] FUTURE POTASSIUM [SQK1] Order #: [id number] FUTURE SODIUM BG [SQNAB] Order #: [id number] FUTURE URIC ACID [SQURIC] Order #: [id number] FUTURE LITHOLINK 24HR URINE PANEL [3303386] Order #: [id number] FUTURE LITHOLINK CKD PROGRAM [2231214] Order #: [id number] LITHOLINK 24HR URINE PANEL [3133863] Order #: [id number] XR ABDOMEN 1V SUPINE [5788493] Order #: [id number] FUTURE Prescriptions as of 06/04/2025 - metoprolol succinate ER (TOPROL XL) 50 mg 24 hr tablet Take 50 mg by mouth once daily. - metFORMIN (GLUCOPHAGE) 1,000 mg tablet Take 1 tablet by mouth every 12 hours. - NURTEC ODT 75 mg disintegrating tablet Take 75 mg by mouth once daily as needed for migraine headache (see administration instructions). Problem List As Of Date 06/04/2025 Noted Resolved Renal calculi [N20.0] 04/14/2025 Obesity, Class II, BMI 35-39.9 [E66.812] 04/14/2025 Ureteral calculi [N20.1] 04/14/2025 Leukocytosis [D72.829] 04/15/2025 Obesity, Class I, BMI 30-34.9 [E66.811] 04/15/2025 Encounter Status:Closed by JOSEPH OTT on 06/04/25 [facility] 06-04-2025 [facility] ([facility] CRYSTAL SCHULTZ ([id number]) 1970 F Date Time Provider Department 06/04/25 JOSEPH OTT URKISHORE During your visit today, we recorded the following information about you: Amanda Randle MA 06/04/2025 2:10 PM Signed Patient called and wants to know if she can have the surgery before September , she does not want to wait that long. FABIAN Montelongo Marryssa Anne 06/07/2025 11:38 AM Signed Joseph Ott MD Smith-Mizik, Marryssa Anne Request for right ESWL possible cystoscopy and retrograde pyelogram was sent to [facility] Gwen Canela MA 06/07/2025 3:58 PM Signed Patient called AND left voicemail stating she was in Saturday for an appointment. States she has a kidney stone on the right side AND wants to know why it was not taken care of when the left side was taken care of. States she cannot wait for the follow up in September. She is having pain AND does not feel good. Wants to know if there is a medication to take to dissolve the stone? She really wishes the stone was taken out at the time the other was done. Please advise Thank you, YARELI Oakes Marryssa Anne 06/09/2025 11:05 AM Signed Called pt and had to leave message. Leni Delacruz 06/09/2025 2:27 PM Signed Called to set up surgery and had to leave message. Leni Sinha Allergies As of Date: 06/04/2025 Noted Allergy Reaction PENICILLINS 07/21/2010 16 - Unknown Date Reviewed: 06/04/2025 Reviewed by: Amanda Randle MA - Fully Assessed Reason for Visit: Surgery [Other] Prescriptions as of 06/09/2025 - metoprolol succinate ER (TOPROL XL) 50 mg 24 hr tablet Take 50 mg by mouth once daily. - metFORMIN (GLUCOPHAGE) 1,000 mg tablet Take 1 tablet by mouth every 12 hours. - NURTEC ODT 75 mg disintegrating tablet Take 75 mg by mouth once daily as needed for migraine headache (see administration instructions). Problem List As Of Date 06/04/2025 Noted Resolved Renal calculi [N20.0] 04/14/2025 Obesity, Class II, BMI 35-39.9 [E66.812] 04/14/2025 Ureteral calculi [N20.1] 04/14/2025 Leukocytosis [D72.829] 04/15/2025 Obesity, Class I, BMI 30-34.9 [E66.811] 04/15/2025 Encounter Status:Closed by LENI SINHA on 06/07/25 [facility] CNCOon 04-26-2025 CNCO Letter Text [facility] CNOVon 04-23-2025 CNOV Office Visit (URCANT ) CRYSTAL SCHULTZ ([id number]) 1970 F Date Time Provider Department 04/23/25 11:40 AM JOSEPH TOT During your visit today, we recorded the following information about you: Joseph Ott MD 04/23/2025 12:25 PM Signed CYSTOSCOPY/stent removal- PROCEDURE NOTE: Cysto/stent remove-[id number] Dx:z46.6 Crystal Schultz is a 55 year old female who presents for a cystoscopy and stent removal Pt ID verified with patient: yes Procedure verified with patient: cystoscopy/stent remove-yes Procedure confirmed with physician and technical support technician: yes Special equipment-cystoscope and grasping forceps UNIVERSAL PROTOCOL / SAFETY CHECKLIST Procedure to be Performed: Cystoscopy and left stent removal Sign In: A Moment of CARE was completed. Appropriate PPE (Personal Protective Equipment) worn by all providers involved with the procedure. Special equipment not required. Patient/Surrogate Stated/Verified: Patient name, Date of , Relevant allergies, and The intended procedure Time Out: Relevant labs, photos, and/or imaging studies have been reviewed. Intended patient and procedure match the source document(s) (e.g. consent, HANDP, associated studies [imaging, pathology]) match the intended patient and procedure. Consent obtained and matches the intended procedure. Yes. Correct side/site has been marked and visible. is not applicable. Medications required for this procedure are verified. Fire risk assessed and is not applicable. Implants: are not applicable. Sign Out: Specimens not collected. All instruments, equipment, possible retained foreign bodies are accounted for. Yes. The post-procedure plan of care has been communicated to the patient or surrogate. A urinalysis was obtained prior cystoscopy and was negative for infection The benefits, risks, alternatives of the cystoscopy procedure and personnel were discussed with the patient. The verbal consent was obtained and the patient agrees to proceed. Procedure: The patient was placed on the procedure table in the supine/lithotomy position and prepped in the usual sterile fashion. 10 cc of 2% Lidocaine Jelly was placed per urethra as an anesthetic in the standard fashion. The cystoscope was carefully placed into the urethra. ---URETHRA: with no evidence of stricture into the bladder. ---BLADDER: The posterior, superior and lateral roman and dome of the bladder were all well visualized and the scope was retroflexed upon itself. The findings were consistent with no evidence of bladder mucosal pathology. The stent was visualized and removed from the left side At the conclusion of the procedure, the cystoscope was removed atraumatically. The patient tolerated the procedure without complications. Patient was given standard post-procedure instructions, and was directed to complete the course of oral antibiotics and increase oral fluid intake as directed. ASSESSMENT/PLAN: 1. Renal calculi - ICD9: 592.0, ICD10: N20.0 Left stent removed in toto Joseph Ott MD See progress note for plans Joseph Ott MD Allergies As of Date: 04/23/2025 Noted Allergy Reaction PENICILLINS 07/21/2010 16 - Unknown Date Reviewed: 04/23/2025 Reviewed by: Merced Goodrich LPN - Fully Assessed Reason for Visit: Stent Extraction [372] Cystoscopy-1 [303] Primary Visit Diagnosis:Renal calculi [N20.0] Prescriptions as of 04/23/2025 - metoprolol succinate ER (TOPROL XL) 50 mg 24 hr tablet Take 50 mg by mouth once daily. - metFORMIN (GLUCOPHAGE) 1,000 mg tablet Take 1 tablet by mouth every 12 hours. - NURTEC ODT 75 mg disintegrating tablet Take 75 mg by mouth once daily as needed for migraine headache (see administration instructions). Problem List As Of Date 04/23/2025 Noted Resolved Renal calculi [N20.0] 04/14/2025 Obesity, Class II, BMI 35-39.9 [E66.812] 04/14/2025 Ureteral calculi [N20.1] 04/14/2025 Leukocytosis [D72.829] 04/15/2025 Obesity, Class I, BMI 30-34.9 [E66.811] 04/15/2025 Disposition: Return in about 6 weeks (around 06/04/2025). Follow-up and Disposition History for Encounter Date Provider Department Center 04/23/2025 [id number] OTT*RD BUTTS Encounter Status:Closed by JOSEPH OTT on 04/23/25 [facility] CNPBebe 04-19-2025 CNPN Telephone ([id number]) CRYSTAL SCHULTZ ([id number]) 1970 F Date Time Provider Department 04/19/25 JOSEPH OTT [id number] During your visit today, we recorded the following information about you: Stephanie Munroe MA 04/19/2025 10:33 AM Signed Pts called about a f/u from pt having surgery w/ Namrata on . Please assist. Thank you, FABIAN Coello Marryssa Anne 04/19/2025 2:46 PM Signed When does pt need to follow up? Leni Sinha 04/20/2025 10:35 AM Signed Called pt and had to leave message. Leni Delacruz 04/21/2025 8:54 AM Signed Called pt and had to leave message. Leni Delacruz 04/23/2025 8:53 AM Signed Called pt and had to leave message. Mailed letter. Leni Delacruz 04/26/2025 11:52 AM Signed Called pt and had to leave message. Mailed certified letter. Leni Sinha Allergies As of Date: 04/19/2025 Noted Allergy Reaction PENICILLINS 07/21/2010 16 - Unknown Date Reviewed: 04/15/2025 Reviewed by: Giuliana Davidson RN - Fully Assessed Reason for Visit: Appointment [186] Prescriptions as of 04/26/2025 - metoprolol succinate ER (TOPROL XL) 50 mg 24 hr tablet Take 50 mg by mouth once daily. - metFORMIN (GLUCOPHAGE) 1,000 mg tablet Take 1 tablet by mouth every 12 hours. - NURTEC ODT 75 mg disintegrating tablet Take 75 mg by mouth once daily as needed for migraine headache (see administration instructions). Problem List As Of Date 04/19/2025 Noted Resolved Renal calculi [N20.0] 04/14/2025 Obesity, Class II, BMI 35-39.9 [E66.812] 04/14/2025 Ureteral calculi [N20.1] 04/14/2025 Leukocytosis [D72.829] 04/15/2025 Obesity, Class I, BMI 30-34.9 [E66.811] 04/15/2025 Encounter Status:Closed by STEPHANIE MUNROE on 04/19/25 [facility] ANES POSTPROC EVALon 025 ANES POSTPROC EVAL HNO ID: [id number] Author: VASU DIAS DO Service: Anesthesiology Author Type: Anesthesiologist Type: Anesthesia Postprocedure Evaluation Filed: 04/15/2025 12:15 Note Text: POST ANESTHESIA EVALUATION NOTE : 1970 Procedure Summary Date: 04/15/25 Room / Location: OR / OR Anesthesia Start: 1034 Anesthesia Stop: 1148 Procedures: CYSTOSCOPY, INSERTION LEFT URETERAL J STENT (Left: Pelvis) LASER LITHOTRIPSY STONES LEFT URETER ~HOLMIUM (Left: Pelvis) CYSTOSCOPY WITH LEFT URETEROSCOPY WITH REMOVAL OR MANIPULATION OF URETERAL CALCULI (Left: Pelvis) Diagnosis: Ureteral calculi (Ureteral calculi [N20.1]) Surgeons: Joseph Ott MD Responsible Provider: Vasu Dias DO Anesthesia Type: general ASA Status: 3 Anesthesia Type: general Airway Type: LMA Last Vitals Vitals Value Taken Time BP 116/59 04/15/25 12:01 Temp 36.9 ?C (98.5 ?F) 04/15/25 11:45 Pulse 82 04/15/25 12:13 Resp 16 04/15/25 12:00 SpO2 95 % 04/15/25 12:13 Vitals shown include unfiled device data. Post Anesthesia Patient Status Patient Evaluation: PACU. PACU/ICU Patient Condition: stable. Anticipated Disposition: inpatient floor planned admission. Neurological Status: aware and responsive. Pulmonary Status: breathing comfortably on room air Airway Control: returned to baseline unsupported. Cardiovascular Status: stable. Pain Management: clinically adequate Postoperative Hydration: acceptable. Intraoperative Events: no significant anesthesia events Post Operative Nausea/Vomiting Status: no significant post operative nausea or vomiting Recommendation: further care per PACU/ICU/floor team. Anesthesia Observations No Documentation SIGNATURE: Vasu Dias DO PATIENT NAME: Crystal Schultz DATE: April 15, 2025 TIME: 12:15 PM CSN: [id number] [facility] ANES PRE-OPon 04-15-2025 ANES PRE-OP HNO ID: [id number] Author: VASU DIAS DO Service: Anesthesiology Author Type: Anesthesiologist Type: Anesthesia Preprocedure Evaluation Filed: 04/15/2025 10:09 Note Text: ANESTHESIOLOGY DAY OF SURGERY NOTE : 1970 Procedure Information Date/Time: 04/15/25914 Procedures: CYSTOSCOPY, INSERTION LEFT URETERAL J STENT (Left: Pelvis) LASER LITHOTRIPSY STONES LEFT URETER ~HOLMIUM (Left: Pelvis) CYSTOSCOPY WITH LEFT URETEROSCOPY WITH REMOVAL OR MANIPULATION OF URETERAL CALCULI (Left: Pelvis) Location: MR OR 07 / OR Surgeons: Joseph Ott MD Estimated body mass index is 33.67 kg/m? as calculated from the following: Height as of this encounter: 152.4 cm (5'). Weight as of this encounter: 78.2 kg (172 lb 6.4 oz). Most recent hematocrit and potassium results: Hematocrit 41.5 04/14/2025 Potassium 3.7 04/14/2025 Relevant Problems -RENAL (+) Renal calculi Migraines DM HTN I - PHYSICAL EVALUATION AIRWAY Patient intubated: No. Tracheostomy tube not present Mallampati: III. TM distance: >3 FB. Neck ROM: full ROM without neurological symptoms. Mouth opening: >3 FB. Short neck: no. Thick neck: no DENTAL Dental findings: teeth intact. Additional exam findings: yes. CARDIOVASCULAR Normal cardiovascular observations. PULMONARY Normal pulmonary observations. II - ANESTHESIA PLAN ASA Score: 3 Anesthetic Plan: general Airway type: LMA NPO Status: adequate Monitoring Plan Monitoring plan: standard ASA. Post Procedure Analgesic Plan Postoperative analgesic plan: parenteral or oral opioids and multimodal analgesia. Informed Consent Anesthetic risks, benefits, alternatives, personnel and consent discussed: yes. Patient / Responsible Alliance Party agrees to proceed: yes Patient / Surrogate agrees to blood products: blood products not planned Significant changes in the patient condition since the History and Physical, not otherwise documented in primary service progress note: no. Potential Anesthesia issues that may suggest increased risk of complications or contraindication to planned procedure: none. Vitals Value Taken Time BP 172/72 04/15/25 10:00 Pulse 101 04/15/25 10:07 Resp 20 04/15/25 10:00 Temp SpO2 96 % 04/15/25 10:07 Vitals shown include unfiled device data. Facility-Administered Medications as of 04/15/2025 Medication Dose Route Frequency [COMPLETED] NaCl 0.9% 1,000 mL iv bolus 1,000 mL INTRAVENOUS ONCE [COMPLETED] ondansetron (PF) 4 mg injection (ZOFRAN) 4 mg INTRAVENOUS ONCE [COMPLETED] keTORolac 15 mg injection (Toradol) 15 mg INTRAVENOUS ONCE [COMPLETED] morphine 4 mg injection 4 mg INTRAVENOUS ONCE [Transfer Hold] NaCl 0.9% iv flush bag 20 mL INTRAVENOUS PRN [Transfer Hold] aluminum-magnesium hydroxide-simethicone 200-200-20 mg/5 mL 30 mL 30 mL ORAL DAILY PRN [Transfer Hold] ondansetron 4 mg tab(s) (ZOFRAN) 4 mg ORAL q 6 H PRN Or [Transfer Hold] ondansetron (PF) 4 mg injection (ZOFRAN) 4 mg INTRAVENOUS q 6 H PRN [Transfer Hold] polyethylene glycol 3350 17 g packet 17 g ORAL DAILY PRN [Transfer Hold] acetaminophen 650 mg tab(s) (TYLENOL) 650 mg ORAL q 6 H PRN [Transfer Hold] melatonin 3 mg tab(s) 3 mg ORAL DAILY (8 PM) [Transfer Hold] NaCl 0.9% iv infusion 100 mL/hr INTRAVENOUS CONTINUOUS [Transfer Hold] dextrose 40 % 15 g 15 g ORAL PRN Or [Transfer Hold] glucagon 1 mg injection 1 mg INTRAMUSCULAR PRN Or [Transfer Hold] dextrose 10% iv bolus 12.5 g INTRAVENOUS PRN [Transfer Hold] insulin lispro injection (rapid acting) (ADMElog) SUBCUTANEOUS q 6 H [Transfer Hold] magnesium oxide 400 mg tab(s) (MAG-OX) 400 mg ORAL BID [Transfer Hold] metoprolol succinate ER 50 mg tab(s) (TOPROL XL) 50 mg ORAL DAILY [Transfer Hold] morphine 4 mg injection 4 mg INTRAVENOUS q 4 H PRN [Transfer Hold] cefTRIAXone 1 g in D5W 100 mL Vial-Bag (ROCEPHIN) 1 g INTRAVENOUS q 24 H Outpatient Medications as of 04/15/2025 Medication Sig metFORMIN (GLUCOPHAGE) 1,000 mg tablet Take 1 tablet by mouth every 12 hours. I have interviewed and examined the patient. I have reviewed the medical record and/or the pre-anesthesia evaluation, pertinent labs, and test results. This contains updated information obtained within 48 hours of Surgery/Procedure. SIGNATURE: Vasu Dias DO PATIENT NAME: Crystal Schultz DATE: April 15, 2025 TIME: 10:09 AM CSN: [id number] [facility] CALCULI ANALYSISon 5 CALCULI [place] BROWN [facility] Comment on above: Order Comment: Speci men Type: CALCULUS SPECIMENOrdering Facility: [facility] Address: [address] [place] [address] Performed By: #### C ####[facility] LABCLIA [id number] [place] [address] [place] CALCULI COMPOSITION [facility] Comment on above: Order Comment: Speci men Type: CALCULUS SPECIMENOrdering Facility: [facility] Address: [address] [place] [address] Result Comment: 70% Calcium Oxalate Monohydrate 20% Calcium Oxalate Dihydrate 10% Minor Components This test was developed, and its performance characteristics determined by the [facility] Department of Pathology and Laboratory Medicine. It has not been cleared or approved by the FDA. The [facility] Department of Pathology and Laboratory Medicine is regulated under CLIA as qualified to perform high-complexity testing. This test is used for clinical purposes. It should not be regarded as investigational or for research. Performed By: #### C SA ####[facility] LABCLIA [id number] [address] [address] [facility] CALCULI SIZE AND WT MULTIPLE PIECES 0.04 38 GRAMS [facility] Comment on above: Order Comment: Speci men Type: CALCULUS SPECIMENOrdering Facility: [facility] Address: [address] [place] [address] Performed By: #### C SA ####[facility] LABCLIA [id number] [address] CALCULI TYPE Let kidney stone [facility] Comment on above: Order Comment: Speci men Type: CALCULUS SPECIMENOrdering Facility: [facility] Address: [address] [place] [address] Performed By: #### C SA ####[facility] LABCLIA [id number] [address] CNDSon 04-15-2025 CNDS HNO ID: [id number] Author: LOUIS HINKLE DO Service: General Internal Medicine Author Type: Physician Type: Discharge Summary Filed: 04/16/2025 06:05 Note Text: DISCHARGE SUMMARY PATIENT NAME: Crystal Schultz ADMISSION DATE: 04/14/2025 DISCHARGE DATE: 04/15/2025 Attending Physician: Louis Hinkle DO Code Status: Full Code Highest Readmission Risk Score: 11 The 30 day readmissions risk score is derived from an internally validated risk model which evaluates patient level characteristics, utilization history, medication orders and lab results up until the day of discharge. Patients with a score of 39 or above are considered highest risk for readmission. Specific patient level drivers will be listed at the bottom of the summary. Reason for Hospitalization: ureteral calculi Principal Problem: Renal calculi (POA: Yes) Active Problems: Obesity, Class II, BMI 35-39.9 (POA: Yes) Ureteral calculi (POA: Yes) Leukocytosis (POA: Yes) Obesity, Class I, BMI 30-34.9 (POA: Yes) Resolved Problems: * No resolved hospital problems. * Operations During Hospitalization: Cystoscopy left ureteroscopy holmium laser lithotripsy and stent insertion Procedures During Hospitalization: No procedures performed Hospital Course: 55 yr year old F with PMHx DM2 and HTN who presented to the ED with left flank pain. Initial vitals were significant for BP 145/85 and HR 105. Lab work showed wbc 12.75. Urinalysis had >25 rbc's. Imaging revealed 7 x 6 x 5 mm obstructive left ureterovesicular junction stone with moderate left hydronephrosis and nonobstructive 3 mm right renal calyceal stone. Patient was admitted to the hospital for further treatment. Urology was consulted. She underwent Cystoscopy left ureteroscopy holmium laser lithotripsy and stent insertion and was discharged in improved condition. Exogenous Class 1 Obesity Consulting Teams During Hospitalization: Surgery : Urology Treatment Team: Attending Provider: Louis Hinkle DO Consulting: Joseph Ott MD Attending: MR SHAYLEE WHITMAN Patient Condition @ Discharge: Improved Discharge Disposition: Home with Self Care BP: 172/72 Temp: 36.7 ?C (98.1 ?F) Temp src: Oral Pulse: 104 Resp: 20 O2 Therapy: Room Air SpO2: 94 % Physical Exam Constitutional: General: She is not in acute distress. Appearance: She is obese. Pulmonary: Effort: Pulmonary effort is normal. No respiratory distress. Neurological: Mental Status: She is alert. Psychiatric: Mood and Affect: Mood normal. Behavior: Behavior normal. DIET: Resume your pre-hospital diet ACTIVITY: Resume pre-hospital activity WOUND/SURGICAL SITE CARE: None ALLERGIES Allergen Reactions Penicillins Unknown Discharge Medications: Medication List CONTINUE taking these medications metFORMIN 1,000 mg tablet Commonly known as: GLUCOPHAGE metoprolol succinate ER 50 mg 24 hr tablet Commonly known as: TOPROL XL NURTEC ODT 75 mg disintegrating tablet Generic drug: rimegepant Plan of Care: Plan of care discussed with Provider, RN, Patient and Family/Significant Other: Future Appointments: Follow Up with PCP: Herlinda Zapata APRN.COAL WASHER The patient's risk for 30-day readmission is determined using the following contributing factors: Predictive Model Details 10% (Low) Factor Value Calculated 04/15/2025 05:20 -30% diagnosis count 2 [facility] READMISSION RISK Model -14% Admissions (90d) 0 -13% Admissions (365d) 0 -10% Admissions (60d) 0 9% Observations (365d) 1 -9% RDW (Max) 12.7 -6% ED Encounter 0 6% Length of Stay (d) 0 6% Arrival Method BLS AMBULANCE -5% Vidal Kota 5 I have performed the jipe-sy-fzdv and relevant services for a total of < 30 minutes. SIGNATURE: Louis Hinkle DO DATE: April 15, 2025 TIME: 10:15 AM [facility] HISTORY PHYSICALon HISTORY PHYSICAL HNO ID: [id number] Author: JOSEPH OTT MD Service: Process Group Author Type: Physician Type: H&P Filed: 04/15/2025 10:21 Note Text: UPDATED HISTORY AND PHYSICAL EXAMINATION SERVICE DATE: 04/15/2025 PHYSICAL EXAM MUST BE COMPLETED ON ADMISSION The History and Physical (completed in the past 30 days) has been reviewed and the patient has been examined. The contents accurately reflect the patient's condition with the following additions or revisions since the HANDP was completed. Examination indicates no changes. LUNGS: Lungs clear to auscultation, Good diaphragmatic excursion CARDIAC: Normal S1 and S2; no rubs, murmurs, or gallops Provisional Diagnosis/Treatment Plan: Procedure(s) (LRB): CYSTOSCOPY, INSERTION LEFT URETERAL J STENT (Left) LASER LITHOTRIPSY STONES LEFT URETER ~HOLMIUM (Left) CYSTOSCOPY WITH LEFT URETEROSCOPY WITH REMOVAL OR MANIPULATION OF URETERAL CALCULI (Left) Presence of tachycardia not attributed to sepsis as per admitting physician note This HANDP can be found in the Electronic Medical Record dated 04/15/25 . SIGNATURE: Joseph Ott MD PATIENT NAME: Crystal Schultz DATE: April 15, 2025 TIME: 10:19 AM [facility] MEDICAL EMERon 04-15-2025 MEDICAL ARGENIS HNO ID: [id number] Author: LOUIS HINKLE DO Service: ? Author Type: Physician Type: Chg in Clinical Condition Filed: 04/15/2025 10:14 Note Text: 55 years old female initially presented with renal calculi on April 14, 2025 10:21 AM EDT. Abnormal Vitals/Labs include: *Heart Rate: 104.0bpm, *SpO2: 94.0%, *Blood Pressure: 172 / 72mmHg, *Glucose: 217.0mg/dL The data above has been reviewed. Based on my current assessment, it is not attributed to the presence of an infection. Sepsis is not suspected at this time. Note created/opened on: Apr 15, 2025, 10:13 EDT (system generated) Normal [facility] Magnesium SerPl-mCncon 04-15 Magnesium [Mass/Vol] 1.9 mg/dL Normal 1.6-2.6 [facility] Comment on above: Order Comment: Speci men Type: BLOOD SPECIMEN Ordering Facility: [facility] Address: [address] [place] [address] Performed By: #### 1 9123-9 #### [facility] CLIA [id number] [address] [place] [address] [address] [facility] OPERATIVE NOon 04-15-2025 OPERATIVE NO HNO ID: [id number] Author: JOSEPH OTT MD Service: Process Group Author Type: Physician Type: Operative Report Filed: 04/15/2025 11:55 Note Text: OPERATIVE/PROCEDURE REPORT LOG ID: [id number] SURGERY/PROCEDURE DATE: 04/15/2025 INCISION/PROCEDURE START TIME: 10:49 AM INCISION CLOSE/PROCEDURE END TIME: 11:31 AM SURGEON(S)/PROCEDURALI ST(S) AND ASSISTANT AT SURGERY(S): Surgeons and Role: * Joseph Ott MD - Primary No Additional Staff SURGERY/PROCEDURE(S): Cystoscopy left ureteroscopy holmium laser lithotripsy and stent insertion ANESTHESIA: General SURGERY/PROCEDURE DETAILS: Patient was put in lithotomy position prepped and draped cystoscopy was done using a 22 Serbian scope sheath and 30 degree lens Bladder was normal no tumor was seen no stones were seen orifices were normal Left orifice intubated using #0.0 35 Glidewire Ureteroscopy using semirigid ureteroscope was done alongside the wire showing the stone which was targeted with holmium laser fragmenting it into minute pieces Stone fragments were retrieved from the ureter and sent for biochemical analysis At this point the ureteroscope was removed and number 26 cm 6 Serbian double-J ureteral stent was fed over the wire advanced into the collecting system After proper positioning of the stent guidewire and pressure were both removed ,bladder was emptied ,the scope was removed patient tolerated procedure well and taken to recovery room in satisfactory condition PRE-OP/PRE-PROCEDURE DIAGNOSIS: Left ureteral calculi POST-OP/POST-PROCEDURE DIAGNOSIS: Same ESTIMATED BLOOD LOSS: Less than 5 cc SPECIMENS: Ureteral stone fragments IMPLANTABLE DEVICES: NONE DRAINS: 26 cm 6 Serbian double-J ureteral stent COMPLICATIONS: None PARTICIPATION IN SURGERY/PROCEDURE: I/primary surgeon/proceduralist performed the procedure with assistance. SIGNATURE: Joseph Ott MD PATIENT NAME: Crystal Schultz DATE: April 15, 2025 TIME: 11:51 AM Normal [facility] CBC panel Auto (Bld)on 04-14 Erythrocyte distribution width (RBC) [Ratio] 12.7 % Normal 11.5-15.0 [facility] Comment on above: Order Comment: Sourav colón Type: BLOOD SPECIMEN Ordering Facility: [facility] Address: [address] [place] [address] Performed By: #### 5 8410-2 #### [facility] CLIA [id number] [address] [place] Hematocrit (Bld) [Volume fraction] 41.5 % Normal 36.0-46.0 [facility] Comment on above: Order Comment: Sourav colón Type: BLOOD SPECIMEN Ordering Facility: [facility] Address: [address] [place] [address] Performed By: #### 5 8410-2 #### [facility] CLIA [id number] [address] [place] [address] [place] Hemoglobin (Bld) [Mass/Vol] 13.2 g/dL Normal 11.5-15.5 [facility] Comment on above: Order Comment: Sourav colón Type: BLOOD SPECIMEN Ordering Facility: [facility] Address: [address] [place] [address] Performed By: #### 5 8410-2 #### [facility] CLIA [id number] [address] [place] [address] [place] MCH (RBC) [Entitic mass] 27.9 pg Normal 26.0-34.0 [facility] Comment on above: Order Comment: Speci men Type: BLOOD SPECIMEN Ordering Facility: [facility] Address: [address] [place] [address] Performed By: #### 5 8410-2 #### [facility] CLIA [id number] [address] [place] [address] [place] MCHC (RBC) [Mass/Vol] 31.8 g/dL Normal 30.5-36.0 [facility] Comment on above: Order Comment: Speci men Type: BLOOD SPECIMEN Ordering Facility: [facility] Address: [address] [place] [address] Performed By: #### 5 8410-2 #### [facility] CLIA [id number] [address] [place] [address] [place] MCV (RBC) [Entitic vol] 87.7 fL Normal 80.0-100.0 [facility] Comment on above: Order Comment: Speci men Type: BLOOD SPECIMEN Ordering Facility: [facility] Address: [address] [place] [address] Performed By: #### 5 8410-2 #### [facility] CLIA [id number] [address] [place] [address] [address] [facility] OF [place] Platelet mean volume (Bld) [Entitic vol] 10.6 fL Normal 9.0-12.7 [facility] Comment on above: Order Comment: Speci men Type: BLOOD SPECIMEN Ordering Facility: [facility] Address: [address] [place] [address] Performed By: #### 5 8410-2 #### [facility] CLIA [id number] [address] [place] [address] [facility] OF [place] Platelets (Bld) [#/Vol] 320 10*3/uL Normal 150-400 [facility] Comment on above: Order Comment: Speci men Type: BLOOD SPECIMEN Ordering Facility: [facility] Address: [address] [place] [address] Performed By: #### 5 8410-2 #### [facility] CLIA [id number] [address] [place] [address] [facility] OF [place] RBC (Bld) [#/Vol] 4.73 10*6/uL Normal 3.90-5.20 [facility] Comment on above: Order Comment: Speci men Type: BLOOD SPECIMEN Ordering Facility: [facility] Address: [address] [place] [address] Performed By: #### 5 8410-2 #### [facility] CLIA [id number] [address] [place] [address] [facility] WBC (Bld) [#/Vol] 12.75 10*3/uL High 3.70-11.00 [facility] Comment on above: Order Comment: Speci men Type: BLOOD SPECIMEN Ordering Facility: [facility] Address: [address] [place] [address] Performed By: #### 5 8410-2 #### [facility] CLIA [id number] [address] OF [facility] CONSULTon 04-14-2025 CONSULT HNO ID: [id number] Author: JOSEPH OTT MD Service: Urology Author Type: Nurse Practitioner Type: Consults Filed: 04/14/2025 13:14 Note Text: Attestation signed by Joseph Ott MD at 04/14/2025 1:14 PM Joseph Ott MD UROLOGY INITIAL CONSULT NOTE SERVICE DATE: 04/14/2025 SERVICE TIME: 12:10 PM REASON FOR CONSULT: left UVJ calculi REQUESTING PHYSICIAN: Rell Huddleston HISTORY OF PRESENT ILLNESS Crystal Schultz is a 55 year old female who presented to the ED for sudden onset of left flank pain. Flank pain accompanied with chills. Denies nausea/vomiting, urinary frequency, urgency, incontinence, and dysuria. Denies hematuria. Denies fever. Reports a prior history of nephrolithiasis around 20 years ago. At that time she did have a right ESWL. She does not remember the name of the urologist she saw at that time. She has not followed up since. CTAP 7 x 6 x 5 left UVJ calculi with moderate left hydronephrosis. 3 mm right nonobstructing renal calculi. UA: 0-5 WBC, 11-25 RBC per high-powered field. Urine culture not indicated. WBC 12.75. Creatinine 0.63. PAST MEDICAL HISTORY Diagnosis Date Diabetes (HCC) Hypertension Kidney stones Migraine, intractable No past surgical history on file. No family history on file. SOCIAL HISTORY[1] Prescriptions Prior to Admission[2] Current Facility-Administered Medications Medication Dose Route Frequency NaCl 0.9% iv flush bag 20 mL INTRAVENOUS PRN aluminum-magnesium hydroxide-simethicone 200-200-20 mg/5 mL 30 mL 30 mL ORAL DAILY PRN ondansetron 4 mg tab(s) (ZOFRAN) 4 mg ORAL q 6 H PRN Or ondansetron (PF) 4 mg injection (ZOFRAN) 4 mg INTRAVENOUS q 6 H PRN polyethylene glycol 3350 17 g packet 17 g ORAL DAILY PRN acetaminophen 650 mg tab(s) (TYLENOL) 650 mg ORAL q 6 H PRN melatonin 3 mg tab(s) 3 mg ORAL DAILY (8 PM) NaCl 0.9% iv infusion 100 mL/hr INTRAVENOUS CONTINUOUS dextrose 40 % 15 g 15 g ORAL PRN Or glucagon 1 mg injection 1 mg INTRAMUSCULAR PRN Or dextrose 10% iv bolus 12.5 g INTRAVENOUS PRN insulin lispro injection (rapid acting) (ADMElog) SUBCUTANEOUS q 6 H magnesium oxide 400 mg tab(s) (MAG-OX) 400 mg ORAL BID Allergies As of Date: 04/14/2025 Allergen Noted Reaction PENICILLINS 07/21/2010 Unknown Fully Assessed 04/14/2025 COMPLETE REVIEW OF SYSTEMS: All pertinent positives and negatives reviewed in HPI. Objective PHYSICAL EXAM: General appearance: cooperative, pleasant, no acute distress, alert and oriented Head: Normocephalic. Lungs: unlabored Cardiovascular: no peripheral edema Abdomen: Abdomen soft, non-tender. Extremities: Extremities normal. No edema. Genitourinary: Bladder: non-palpable, non-distended, non-tender + Left cva/suprapubic tendernes BP 145/85 Pulse 105 Temp (Src) 98.4 (Oral) Resp 16 SpO2 94% DATA: Diagnostic tests reviewed for today's visit: Most recent labs and imaging results. Urine Culture: N/A CTAP: 7 x 6 x 5 left UVJ calculi with moderate left hydronephrosis. 3 mm right nonobstructing renal calculi. Assessment AND Plan Renal calculi -3 mm right nonobstructing renal calculi. Follow-up as outpatient for this. Ureteral calculi - 7 x 6 x 5 left UVJ calculi with moderate left hydronephrosis - HDS currently. Please make urology aware immediately if they become hypotensive, tachycardic, febrile -Strain Urine. Make urology aware if they pass their stone. -Recommend cystoscopy with left ureteroscopy/laser lithotripsy and left ureteral stent insertion.Procedure discussed in detail. All potential risks, complications, and benefits were reviewed with patient. The patient verbalized understanding and is agreeable to proceed at this time. - NPO aft midnight - Recommend starting abx coverage. Sally Vega APRN.COAL WASHER SERVICE DATE: April 14, 2025 SERVICE TIME: 12:10 PM [1] Social History Tobacco Use Smoking status: Never Smokeless tobacco: Never Vaping Use Vaping status: Never Used Substance Use Topics Alcohol use: Never Drug use: Never [2] metoprolol succinate ER (TOPROL XL) 50 mg 24 hr tablet, Take 50 mg by mouth once daily., Disp: , Rfl: metFORMIN (GLUCOPHAGE) 1,000 mg tablet, Take 1 tablet by mouth every 12 hours., Disp: , Rfl: [facility] CT ABD/PEL WO IVCONon 2024 CT ABD/PEL WO IVCON * * *Final Report* * * DATE OF EXAM: Apr 14 2025 6:43AM [facility] 0531 - CT ABD/PEL WO IVCON / PROCEDURE REASON: LLQ abdominal pain * * * * Physician Interpretation * * * * EXAMINATION: CT ABDOMEN AND PELVIS WITHOUT IV CONTRAST CLINICAL HISTORY: Left flank pain. TECHNIQUE: Non-IV contrast imaging of the abdomen and pelvis was performed using standard technique, scanning from just above the dome of the diaphragm to the symphysis pubis. Unenhanced imaging is limited for the evaluation of some intra-abdominal and pelvic pathology. MQ: CTAPWO_3 Contrast: IV: None : ml of CT Radiation dose: Integrated Dose-length product (DLP) for this visit = 799.93 mGy*cm. CT Dose Reduction Employed: Automated exposure control(AEC) and iterative recon COMPARISON: None. RESULT: Abdomen / Pelvis: There is no free intraperitoneal air, portal venous or mesenteric gas, focal fluid collection or small bowel dilation to suggest the presence of obstruction. Liver: Unremarkable. Biliary: The gallbladder is unremarkable. Spleen: No splenomegaly. Pancreas: Unremarkable. Adrenals: No mass. Kidneys: Obstructive 7 x 6 x 5 mm stone at the left ureterovesicular junction with associated moderate left hydronephrosis and left perinephric/periureter al soft tissue infiltration. 3 mm nonobstructive calyceal stone at the superior collecting system. No obstructive ureteral stones. No hydroureteronephrosis. No discrete renal mass. GI Tract: No bowel dilation. Colonic diverticulosis, primarily involving the sigmoid colon. No findings to suggest diverticulitis. Appendix unremarkable. Lymph Nodes: No lymphadenopathy. Mesentery/peritoneum: No ascites. Retroperitoneum: No mass. Vasculature: Arterial atherosclerotic disease without aneurysm. Pelvis: No mass or ascites. Bones/Soft Tissues: No acute abnormality. Lower thorax: Unremarkable. Localizer images: No additional findings. IMPRESSION: 7 x 6 x 5 mm obstructive left ureterovesicular junction stone with moderate left hydronephrosis. Nonobstructive 3 mm right renal calyceal stone. No discrete mass or adenopathy within the abdomen and pelvis, however evaluation is limited on this noncontrast examination. Colonic diverticulosis Sales And Merchandising Representative: GERMAN Transcribe Date/Time: Apr 14 2025 7:00A Dictated by : DHRUV BLAKE MD This examination was interpreted and the report reviewed and electronically signed by: DHRUV BLAKE MD on Apr 14 2025 7:05AM EST [id number] Normal [facility] Comprehensive metabolic 2000 panelon 04-14-2025 Albumin [Mass/Vol] 4.6 g/dL Normal 3.9-4.9 [facility] Comment on above: Order Comment: Speci men Type: BLOOD SPECIMENOrdering Facility: [facility] Address: [address] [place] [address] Performed By: #### 1 9123-9, 98542-5, 3040-3 ####[facility] LABCLIA [id number] [facility] [address] [place] ALP [Catalytic activity/Vol] 70 U/L Normal 34-123 [facility] Comment on above: Order Comment: Speci men Type: BLOOD SPECIMENOrdering Facility: [facility] Address: [address] [place] [address] Performed By: #### 1 9123-9, 46658-4, 3040-3 ####[facility] LABCLIA [id number] [facility] [place] [address] [place] ALT With P-5'-P [Catalytic activity/Vol] 21 U/L Normal 7-38 [facility] Comment on above: Order Comment: Speci men Type: BLOOD SPECIMENOrdering Facility: [facility] Address: [address] [place] [address] Performed By: #### 1 9123-9, 26934-9, 3040-3 ####[facility] LABCLIA [id number] [facility] [place] [address] [place] Anion gap [Moles/Vol] 17 mmol/L High 8-15 [facility] Comment on above: Order Comment: Speci men Type: BLOOD SPECIMENOrdering Facility: [facility] Address: [address] [place] [address] Performed By: #### 1 9123-9, 10374-4, 3040-3 ####[facility] LABCLIA [id number] [facility] [place] [address] [place] AST With P-5'-P [Catalytic activity/Vol] 18 U/L Normal 13-35 [facility] Comment on above: Order Comment: Speci men Type: BLOOD SPECIMENOrdering Facility: [facility] Address: [address] [place] [address] Performed By: #### 1 9123-9, 83213-5, 3040-3 ####[facility] LABCLIA [id number] [facility] [address] [place] Bilirubin [Mass/Vol] 0.5 mg/dL Normal 0.2-1.3 [facility] Comment on above: Order Comment: Speci men Type: BLOOD SPECIMENOrdering Facility: [facility] Address: [address] [place] [address] Performed By: #### 1 9123-9, 05815-8, 3040-3 ####[facility] LABCLIA [id number] [place] [address] [place] Calcium [Mass/Vol] 9.4 mg/dL Normal 8.5-10.2 [facility] Comment on above: Order Comment: Speci men Type: BLOOD SPECIMENOrdering Facility: [facility] Address: [address] [place] [address] Performed By: #### 1 9123-9, 06329-0, 3040-3 ####[facility] LABCLIA [id number] [place] [address] [place] Chloride [Moles/Vol] 101 mmol/L Normal 98-107 [facility] Comment on above: Order Comment: Speci men Type: BLOOD SPECIMENOrdering Facility: [facility] Address: [address] [place] [address] Performed By: #### 1 9123-9, 10586-5, 3040-3 ####[facility] LABCLIA [id number] [facility] [address] [place] CO2 [Moles/Vol] 21 mmol/L Low 22-30 [facility] Comment on above: Order Comment: Speci men Type: BLOOD SPECIMENOrdering Facility: [facility] Address: [address] [place] [address] Performed By: #### 1 9123-9, 48880-4, 3040-3 ####[facility] LABCLIA [id number] [place] [address] [place] Creatinine [Mass/Vol] 0.63 mg/dL Normal 0.58-0.96 [facility] Comment on above: Order Comment: Speci men Type: BLOOD SPECIMENOrdering Facility: [facility] Address: [address] [place] [address] Performed By: #### 1 9123-9, 81565-5, 3040-3 ####[facility] LABCLIA [id number] [place] [address] [place] eGFRcr SerPlBld CKD-EPI 2020 104 mL/min/1.73m??? Normal >=60 [facility] Comment on above: Order Comment: Speci men Type: BLOOD SPECIMENOrdering Facility: [facility] Address: [address] [place] [address] Result Comment: Gillian mated Glomerular Filtration Rate (eGFR) is calculated using the 2020 CKD-EPI creatinine equation. This equation utilizes serum creatinine, sex, and age as parameters. The creatinine assay has traceable calibration to isotope dilution-mass spectrometry. Refer to KDIGO guidelines for clinical interpretation. In patients with unstable renal function, e.g. those with acute kidney injury, the eGFR may not accurately reflect actual GFR. Performed By: #### 1 9123-9, 28247-4, 3040-3 ####[facility] LABCLIA [id number] [place] [address] [place] Glucose [Mass/Vol] 238 mg/dL High 74-99 [facility] Comment on above: Order Comment: Speci katarzyna Type: BLOOD SPECIMENOrdering Facility: [facility] Address: [address] [place] [address] Result Comment: The [place] Diabetes Association (ADA) provides guidance for cutoff values for fasting glucose and random glucose. The ADA defines fasting as no caloric intake for at least 8 hours. Fasting plasma glucose results between 100 to 125 mg/dL indicate increased risk for diabetes (prediabetes). Fasting plasma glucose results greater than or equal to 126 mg/dL meet the criteria for diagnosis of diabetes. In the absence of unequivocal hyperglycemia, results should be confirmed by repeat testing. In a patient with classic symptoms of hyperglycemia or hyperglycemic crisis, random plasma glucose results greater than or equal to 200 mg/dL meet the criteria for diagnosis of diabetes. Reference: Standards of Medical Care in Diabetes 2016, [place] Diabetes Association. Diabetes Care. 2016.39(Suppl 1). Performed By: #### 1 9123-9, 84185-4, 3040-3 ####[facility] LABCLIA [id number] [place] [address] [place] Potassium [Moles/Vol] 3.7 mmol/L Normal 3.7-5.1 [facility] Comment on above: Order Comment: [facility] Type: BLOOD SPECIMENOrdering Facility: [facility] Address: [address] [place] [address] Performed By: #### 1 9123-9, 19959-0, 3040-3 ####[facility] LABCLIA [id number] [place] [address] [place] Protein [Mass/Vol] 7.2 g/dL Normal 6.3-8.0 [facility] Comment on above: Order Comment: [facility] Type: BLOOD SPECIMENOrdering Facility: [facility] Address: [address] [place] [address] Performed By: #### 1 9123-9, 39151-8, 3040-3 ####[facility] LABCLIA [id number] [place] [address] [place] Sodium [Moles/Vol] 139 mmol/L Normal 136-144 [facility] Comment on above: Order Comment: Sourav men Type: BLOOD SPECIMENOrdering Facility: [facility] Address: [address] [place] [address] Performed By: #### 1 9123-9, 34157-2, 3040-3 ####[facility] LABCLIA [id number] [place] [address] [facility] Urea nitrogen [Mass/Vol] 16 mg/dL Normal 7-21 [facility] Comment on above: Order Comment: Speci men Type: BLOOD SPECIMENOrdering Facility: [facility] Address: [address] [place] [address] [place] [address] Performed By: #### 1 9123-9, 18319-8, 3040-3 ####[facility] LABCLIA [id number] [facility] [address] [facility] ED NOTEon 04-14-2025 ED NOTE HNO ID: [id number] Author: ANASTASIA MARTIN RN Service: Emergency Medicine Author Type: Registered Nurse Type: ED Notes Filed: 04/14/2025 09:26 Note Text: Pt is alert and oriented, denies any questions/concerns. Pt and family verbalize understanding of transfer to [facility]. Pt ambulates to restroom with steady gait prior to ambulating to EMS cot for transfer. Normal [facility] ED NOTE HNO ID: [id number] Author: PANTERA MALONE RN Service: Nursing Author Type: Registered Nurse Type: ED Notes Filed: 04/14/2025 08:36 Note Text: [facility] ETA 60 minutes. [facility] ED NOTE HNO ID: [id number] Author: PANTERA MALONE RN Service: Nursing Author Type: Registered Nurse Type: ED Notes Filed: 04/14/2025 08:33 Note Text: Thierno from Transfer line calls. Bed assignment [facility] 598-1 Report to:[phone] [facility] ED NOTE HNO ID: [id number] Author: FEI DAVIDSON MD Service: ? Author Type: Physician Type: ED Notes Filed: 04/14/2025 08:22 Note Text: Pt care assumed from Dr. Rey pending transfer. She presented with flank pain and was found to have [id number] stone with hydronephrosis without UTI. She required multiple doses of analgesia to attempt to control her symptoms. She has hx of kidney stone. Pt admitted to [facility] under Dr. Huddleston. Fei Davidson MD [facility] ED NOTE HNO ID: [id number] Author: KARI KABA RN Service: Emergency Medicine Author Type: Registered Nurse Type: ED Notes Filed: 04/14/2025 07:09 Note Text: Report given to Anastasia Montano RN Normal [facility] ED NOTE HNO ID: [id number] Author: KARI KABA RN Service: Emergency Medicine Author Type: Registered Nurse Type: ED Notes Filed: 04/14/2025 07:01 Note Text: Patient informed: the name of medication, why we are giving it, possible side effects, what they may expect to feel, and was offered a chance to ask questions, prior to the administration of morphine Normal [facility] ED NOTE HNO ID: [id number] Author: KARI KABA RN Service: Emergency Medicine Author Type: Registered Nurse Type: ED Notes Filed: 04/14/2025 06:15 Note Text: Patient informed: the name of medication, why we are giving it, possible side effects, what they may expect to feel, and was offered a chance to ask questions, prior to the administration of zofran toradol Normal [facility] ED NOTE HNO ID: [id number] Author: KARI KABA RN Service: Emergency Medicine Author Type: Registered Nurse Type: ED Notes Filed: 04/14/2025 05:55 Note Text: Pt to ED with c/o left flank pain that started around 0230-3am, radiating to groin area. Pt has history of kidney stones Normal [facility] ED PROV NOTEon 04-14-2025 ED PROV NOTE HNO ID: [id number] Author: DODIE REY MD Service: Emergency Medicine Author Type: Physician Type: ED Provider Notes Filed: 04/14/2025 08:01 Note Text: ED Provider Note Patient Name: Crystal Schultz : 1970 SERVICE DATE: 04/14/25 History Patient presents with: Flank Pain Patient presents to the emergency room for sudden onset of left-sided flank, and left lower quadrant abdominal pain. Patient states she was try to go to sleep approximately 2 AM, and the pain started. Patient took nothing for the pain prior to coming to the emergency department. Patient with nausea without emesis. No urinary complaints, no recent hematuria, no changes in her stool. No recent antibiotics. Patient states pain similar to having a stone 20 years prior. 7:25 AM Patient remained uncomfortable after initial Toradol, IV fluid bolus, and was requested morphine. Patient has a 7 x 6 mm ureteral vesicle junction stone with concern for hydronephrosis. Patient's laboratory studies she is mildly hyperglycemic without DKA and normal renal function. No significant leukocytosis, and urinalysis with blood however no evidence of urinary tract infection. With the size of patient's stone, hydronephrosis, and recurrent pain I feel patient would benefit from urologic consultation. Transfer team was contacted for the above. Abdominal Pain Pain location: L flank Pain quality: stabbing and throbbing Pain radiates to: Groin Pain severity: Mild Onset quality: Sudden Duration: 3 hours Timing: Intermittent Progression: Waxing and waning Chronicity: New Context: not previous surgeries, not recent illness, not sick contacts and not suspicious food intake Relieved by: Nothing Worsened by: Nothing Ineffective treatments: None tried Associated symptoms: nausea Associated symptoms: no constipation, no diarrhea, no hematuria and no vomiting Risk factors: has not had multiple surgeries PAST MEDICAL HISTORY Diagnosis Date Diabetes (HCC) Hypertension Kidney stones Migraine, intractable History reviewed. No pertinent surgical history. No family history on file. Social History[1] ALLERGIES Allergen Reactions Penicillins Unknown Review of Systems Gastrointestinal: Positive for abdominal pain and nausea. Negative for constipation, diarrhea and vomiting. Genitourinary: Negative for hematuria. Physical Exam Vitals [04/14/25 0549] BP Pulse Temp Temp src Resp SpO2 Weight Height 180/92 (!) 110 37.2 ?C (98.9 ?F) Temporal 20 97 % 86.1 kg (189 lb 14.4 oz) 1.524 m (5') Physical Exam Vitals and nursing note reviewed. Constitutional: General: She is not in acute distress. Appearance: Normal appearance. She is not ill-appearing or toxic-appearing. Comments: Patient is uncomfortable, she is teary-eyed HENT: Head: Normocephalic and atraumatic. Eyes: General: Right eye: No discharge. Left eye: No discharge. Cardiovascular: Rate and Rhythm: Regular rhythm. Tachycardia present. Comments: Strong palpable left foot DP pulse, no pretibial edema Pulmonary: Effort: No respiratory distress. Abdominal: General: Bowel sounds are normal. Palpations: Abdomen is soft. Tenderness: There is abdominal tenderness. There is left CVA tenderness. There is no right CVA tenderness, guarding or rebound. Negative signs include McBurney's sign and psoas sign. Comments: Soft obese abdomen, very mild left lower quadrant, left CVA tenderness, no rebound no guarding no peritoneal findings, no obvious hernia or masses appreciated, no overlying skin changes, no rash no shingles lesions Skin: General: Skin is warm and dry. Neurological: General: No focal deficit present. Mental Status: She is alert and oriented to person, place, and time. Mental status is at baseline. Psychiatric: Mood and Affect: Mood normal. Behavior: Behavior normal. Diagnostic Testing ED Labs Ordered and Reviewed - No data to display Procedures ED Course / Clinical Impression Clinical Impressions as of 04/14/25 0725 Kidney stone Ureteral stone Hydronephrosis with ureteropelvic junction (UPJ) obstruction MDM / Disposition / Plan This is a 55-year-old female who presents to the emergency room with her , for concerns over left lower quadrant abdominal and flank pain radiating to her groin. Patient has past abdominal surgical history of section x 2, neuroma history of kidney stones 20 years prior. Patient woke up with pain hours ago that is persistent and rated as moderate to severe. Likely etiology is kidney stones however consider vascular, and infectious etiologies as well. Will obtain imaging, labs 8:00 AM Workup demonstrates the patient have a rather large left-sided ureterovesical junction stone, with hydronephrosis. Stone is 7 x 6 x 5 mm. Urinalysis without evidence of urinary tract infection, laboratory studies have normal BUN, creatinine. No evide (more content not included)... Normal [facility] HISTORY PHYSICALon HISTORY PHYSICAL HNO ID: [id number] Author: RELL HUDDLESTON MD Service: Hospital Medicine Author Type: Physician Type: H&P Filed: 04/14/2025 13:48 Note Text: HISTORY AND PHYSICAL EXAMINATION PATIENT NAME: Crystal Schultz SERVICE DATE AND TIME: 04/14/2025 10:48 AM PRIMARY CARE PHYSICIAN: Herlinda Zapata APRN.[employer] COMPLAINT: Sudden onset of left flank pain since early this morning. HPI: This is a 55 year old female with a PMH of diabetes and hypertension, who presents to [place] ER with left flank pain that began early in the morning. She has nausea without vomiting. No dysuria, urgency, frequency or hematuria. No diarrhea or constipation. During the ER evaluation she is afebrile, tachycardic with a heart rate of 97 bpm. Labs show white blood cell count 12,000, lipase normal, electrolytes normal. Magnesium slightly low 1.6. Urine with RBCs. CT abdomen pelvis with a 7X6X 5 mm obstructive left ureter vesicular junction stone with moderate left HN. Nonobstructive 3 mm right renal stone While in the ER 1 L of IV fluids, Toradol 15 mg IV, Zofran 4 mg IV, morphine 4 mg IV X2 doses. It was requested she be transferred to our hospital for urology evaluation After discussion with the ED Physician Asssistant, it was agreed the patient will need placed in OBSERVATION status for left renal calculi. ASSESSMENT/PLAN: PRINCIPLE PROBLEM: 1. Renal calculi - Left side moderate hydronephrosis - N.p.o. -IV fluids - Tylenol as needed mild to moderate pain - Morphine as needed severe pain -Patient with chills and slight elevated white blood cell count which could just be reactive however we will go ahead and give a dose of Rocephin 1 g IV - Urology consult ADDITIONAL PROBLEMS: 2. Diabetes mellitus - Controlled carbohydrate diet once diet is advanced - Accu-Cheks - Cover elevated blood sugars with in-house sliding scale of insulin for now -Hold home dose of metformin 3. Hypertension - Continue home dose of metoprolol 4. Hypomagnesemia - Magnesium slightly low 1.6 - Replace mag sulfate 400 mg twice daily - Recheck a mag level in a.m. 5. DVT ASSESSMENT -Encourage early and ongoing ambulation/mobility as appropriate and tolerated by patient Will initiate Heparin 5,000 units SQ q12hrs, if patient requires > 24hr hospital stay or has a change in risk factors for DVT DIET: NPO IVF'S NS @100cc/hr DEVICES PRESENT ON ADMISSION: Peripheral IV BMI: There is no height or weight on file to calculate BMI. 35-39.9 (Severe Obesity, Class II- E66.0) ISOLATION OR OTHER SPECIAL CONSIDERATIONS: Does not need Isolation. ACTIVITY AT HOME: Independent Lives with spouse or a significant other ACTIVITY ON ADMISSION: Up as tolerated WOUNDS/PRESSURE INJURIES POA: None DISPOSITION AT DISCHARGE: Home CODE STATUS: FULL CODE Please Note: Additional external medical records were reviewed from the EMR and/or those that accompanied the patient, including labs, imaging and test results. I have also reviewed the patients prescription fill history for the past six months. PAST MEDICAL HISTORY Diagnosis Date Diabetes (HCC) Hypertension Kidney stones Migraine, intractable No past surgical history on file. No family history on file. SOCIAL HISTORY[1] ALLERGIES Allergen Reactions Penicillins Unknown HOME MEDICATIONS: metoprolol succinate ER (TOPROL XL) 50 mg 24 hr tabletTake 50 mg by mouth once daily.Disp: Rfl: metFORMIN (GLUCOPHAGE) 1,000 mg tabletTake 1 tablet by mouth every 12 hours.Disp: Rfl: COMPLETE REVIEW OF SYSTEMS: Review of Systems Constitutional: Negative for appetite change, chills, diaphoresis, fatigue and fever. HENT: Negative for sore throat. Respiratory: Negative for cough. Cardiovascular: Negative for chest pain and leg swelling. Gastrointestinal: Negative for abdominal pain, diarrhea, nausea and vomiting. Genitourinary: Negative for dysuria, frequency, hematuria and urgency. PHYSICAL EXAM: Patient Vitals for the past 24 hrs: BP Temp Temp src Pulse Resp SpO2 04/14/25 1036 145/85 36.9 ?C (98.4 ?F) Oral 105 16 94 % Physical Exam LAB AND TEST RESULTS: CBC: Recent Labs 04/14/25 0625 WBC 12.75* HB 13.2 HCT 41.5 PLT 320 CHEM: Recent Labs 04/14/25 0625 NA 139 K 3.7 CHLOR 101 CO2 21* GLUC 238* BUN 16 CREAT 0.63 ANION 17* CA 9.4 MG 1.6* LIPASE 47 HEPATIC: Recent Labs 04/14/25 0625 TBILI 0.5 AST 18 ALT 21 ALKPHOS 70 TPROT 7.2 ALB 4.6 CARDIAC: LIPID PANEL: ENDOCRINOLOGY: No results found for this basename: TSH No results found for this basename: HBA1C URINALYSIS: Recent Labs 04/14/25 0625 SPGR 1.020 UGLUC Negative UBILI Negative UKET Negative UHB 2+* UPROT Negative UWBC 0-5 /HPF URBC 11-25 /HPF* CULTURES: Positive Micro-30 Days No results found for the last 720 hours. SIGNATURE: Rell Huddleston MD DATE: April 14, 2025 (more content not included)... Normal [facility] Lipase SerPl-cCncon 04-14-20 25 Lipase [Catalytic activity/Vol] 47 U/L Normal 16-61 [facility] Comment on above: Order Comment: Speci men Type: BLOOD SPECIMENOrdering Facility: [facility] Address: [address] [place] [address] Performed By: #### 1 9123-9, 00374-3, 3040-3 ####[facility] LABCLIA [id number] [place] [address] [facility] [place] Magnesium SerPl-mCncon 04-14 Magnesium [Mass/Vol] 1.6 mg/dL Low 1.7-2.3 [facility] Comment on above: Order Comment: Speci men Type: BLOOD SPECIMENOrdering Facility: [facility] Address: [address] [place] [address] Performed By: #### 1 9123-9, 30950-7, 3040-3 ####[facility] LABCLIA [id number] [place] [address] [place] Urinalysis complete panel (U )on 04-14-2025 Bilirubin Ql (U) Negative Normal Negative [facility] Comment on above: Order Comment: Speci men Type: URINE SPECIMENOrdering Facility: [facility] Address: [address] [place] [address] Performed By: #### 2 4356-8 ####[facility] LABCLIA [id number] [place] [address] [facility] CALCIUM OXALATE CRYSTALS (UA) Moderate Abnormal None Seen [facility] Comment on above: Order Comment: Speci men Type: URINE SPECIMENOrdering Facility: [facility] Address: [address] [place] [address] Performed By: #### 2 4356-8 ####[facility] LABCLIA [id number] [place] [address] [facility] Clarity (Unsp spec) Clear Normal Clear [facility] Comment on above: Order Comment: Speci men Type: URINE SPECIMENOrdering Facility: [facility] Address: [address] [place] [address] Performed By: #### 2 4356-8 ####[facility] LABCLIA [id number] [place] [address] [facility] Color (U) Yellow Normal Yellow [facility] Comment on above: Order Comment: Speci men Type: URINE SPECIMENOrdering Facility: [facility] Address: [address] [place] [address] Performed By: #### 2 4356-8 ####[facility] LABCLIA [id number] [place] [address] [facility] Epithelial cells LM.HPF (Urine sed) [#/Area] Few Normal [facility] Comment on above: Order Comment: Speci men Type: URINE SPECIMENOrdering Facility: [facility] Address: [address] [place] [address] Performed By: #### 2 4356-8 ####[facility] LABCLIA [id number] [place] [address] [facility] Glucose Test strip (U) [Mass/Vol] Negative Normal Negative [facility] Comment on above: Order Comment: Speci men Type: URINE SPECIMENOrdering Facility: [facility] Address: [address] [place] [address] Performed By: #### 2 4356-8 ####[facility] LABCLIA [id number] [place] [address] [facility] Hemoglobin Ql (U) 2+ Abnormal Negative [facility] Comment on above: Order Comment: Speci men Type: URINE SPECIMENOrdering Facility: [facility] Address: [address] [place] [address] Performed By: #### 2 4356-8 ####[facility] LABCLIA [id number] [facility] [place] [address] [place] [facility] Ketones Ql (U) Negative Normal Negative [facility] Comment on above: Order Comment: Speci men Type: URINE SPECIMENOrdering Facility: [facility] Address: [address] [place] [address] Performed By: #### 2 4356-8 ####[facility] LABCLIA [id number] [place] [address] [place] Leukocyte esterase Test strip Ql (U) Negative Normal Negative [facility] Comment on above: Order Comment: Speci men Type: URINE SPECIMENOrdering Facility: [facility] Address: [address] [place] [address] Performed By: #### 2 4356-8 ####[facility] LABCLIA [id number] [place] [address] [place] Nitrite Ql (U) Negative Normal Negative [facility] Comment on above: Order Comment: Speci men Type: URINE SPECIMENOrdering Facility: [facility] Address: [address] [place] [address] Performed By: #### 2 4356-8 ####[facility] LABCLIA [id number] [place] [address] [place] pH (U) 5.5 [pH] Normal 5.0-8.0 [facility] Comment on above: Order Comment: Speci men Type: URINE SPECIMENOrdering Facility: [facility] Address: [address] [place] [address] Performed By: #### 2 4356-8 ####[facility] LABCLIA [id number] [place] [address] [place] Protein (U) [Mass/Vol] Negative Normal Negative [facility] Comment on above: Order Comment: Speci men Type: URINE SPECIMENOrdering Facility: [facility] Address: [address] [place] [address] Performed By: #### 2 4356-8 ####[facility] LABCLIA [id number] [place] [address] [facility] RBC LM.HPF (Urine sed) [#/Area] 11-25 /HPF Abnormal 0-3 /HPF [facility] Comment on above: Order Comment: Speci men Type: URINE SPECIMENOrdering Facility: [facility] Address: [address] [place] [address] Performed By: #### 2 4356-8 ####[facility] LABCLIA [id number] [place] [id number] [facility] Specific gravity (U) [Rel density] 1.020 Normal 1.005-1.030 [facility] Comment on above: Order Comment: Speci men Type: URINE SPECIMENOrdering Facility: [facility] Address: [address] [place] [address] Performed By: #### 2 4356-8 ####[facility] LABCLIA [id number] [address] Urobilinogen Ql (U) 0.2 EU/dL Normal 0.2-1.0 EU/dL [facility] Comment on above: Order Comment: Speci men Type: URINE SPECIMENOrdering Facility: [facility] Address: [address] [place] [address] Performed By: #### 2 4356-8 ####[facility] LABCLIA [id number] [place] [id number] [facility] WBC LM.HPF (Urine sed) [#/Area] 0-5 /HPF Normal 0-5 /HPF [facility] Comment on above: Order Comment: Speci men Type: URINE SPECIMENOrdering Facility: [facility] Address: [address] [place] [address] Performed By: #### 2 4356-8 ####[facility] LABCLIA [id number] [place] [address] [facility] [place] CBC W/Diff, Automatedon 05-2 -2024 Absolute Lymph 4.02 X10 3/uL Normal 0.83-4.51 [facility] Comment on above: Performed By: #### L 500.4100, L500.4050, L100.0100 #### [facility] [address] [place], [address] Absolute Neut 4.6 X10 3/uL Normal 2.0-7.7 [facility] Comment on above: Performed By: #### L 500.4100, L500.4050, L100.0100 #### [facility] [address] [place], [address] Basophils/100 WBC (Bld) 0.3 % Normal 0-1 [facility] Comment on above: Performed By: #### L 500.4100, L500.4050, L100.0100 #### [facility] [address] [place], [address] Eosinophils/100 WBC (Bld) 0.8 % Normal 0-5 [facility] Comment on above: Performed By: #### L 500.4100, L500.4050, L100.0100 #### [facility] [address] [place], [address] Erythrocyte distribution width (RBC) [Ratio] 13.2 % Normal 11.6-14.6 [facility] Comment on above: Performed By: #### L 500.4100, L500.4050, L100.0100 #### [facility] [address] [place], [address] Hematocrit (Bld) [Volume fraction] 40.3 % Normal 37-47 [facility] Comment on above: Performed By: #### L 500.4100, L500.4050, L100.0100 #### [facility] [address] [place], [address] Hemoglobin (Bld) [Mass/Vol] 12.8 g/dL Normal 12.0-15.0 [facility] Comment on above: Performed By: #### L 500.4100, L500.4050, L100.0100 #### [facility] [address] [place], [address] IG% 0.200 Normal 0.0-0.9 [facility] Comment on above: Result Comment: IG% - Immature Granulocytes (promyelocytes, myelocytes and metamyelocytes) > 1% indicates that a LEFT SHIFT is Present. Performed By: #### L 500.4100, L500.4050, L100.0100 #### [facility] [address] [place], [address] Lymphocytes/100 WBC (Bld) 44.3 % High 19-41 [facility] Comment on above: Performed By: #### L 500.4100, L500.4050, L100.0100 #### [facility] [address] [place], [address] MCH (RBC) [Entitic mass] 27.9 pg Normal 27.0-32.0 [facility] Comment on above: Performed By: #### L 500.4100, L500.4050, L100.0100 #### [facility] [address] [place], [address] MCHC (RBC) [Mass/Vol] 31.8 g/dL Low 32-36 [facility] Comment on above: Performed By: #### L 500.4100, L500.4050, L100.0100 #### [facility] [address] [place], [address] MCV (RBC) [Entitic vol] 87.8 fL Normal 81-99 [facility] Comment on above: Performed By: #### L 500.4100, L500.4050, L100.0100 #### [facility] [address] [place], [address] Monocytes/100 WBC (Bld) 4.1 % Normal 0-10 [facility] Comment on above: Performed By: #### L 500.4100, L500.4050, L100.0100 #### [facility] [address] [place], [address] Neutrophils/100 WBC (Bld) 50.3 % Normal 47-70 [facility] Comment on above: Performed By: #### L 500.4100, L500.4050, L100.0100 #### [facility] [address] [place], [address] Nucleated RBC (Bld) [#/Vol] 0 10*3/uL Normal 0-5 [facility] Comment on above: Performed By: #### L 500.4100, L500.4050, L100.0100 #### [facility] [address] [place], [address] Platelet mean volume (Bld) [Entitic vol] 11.5 fL Normal 6.2-12.0 [facility] Comment on above: Performed By: #### L 500.4100, L500.4050, L100.0100 #### [facility] [address] [place], [address] Platelets (Bld) [#/Vol] 282 10*3/uL Normal 150-450 [facility] Comment on above: Performed By: #### L 500.4100, L500.4050, L100.0100 #### [facility] [address] [place], [address] RBC (Bld) [#/Vol] 4.59 10*6/uL Normal 4.2-5.[address] [facility] Comment on above: Performed By: #### L 500.4100, L500.4050, L100.0100 #### [facility] [address] [place], [address] RDW SD 42.5 fl Normal 35.1-43.9 [facility] Comment on above: Performed By: #### L 500.4100, L500.4050, L100.0100 #### [facility] [address] [place], [address] WBC (Bld) [#/Vol] 9.1 10*3/uL Normal 4.4-11.0 [facility] Comment on above: Performed By: #### L 500.4100, L500.4050, L100.0100 #### [facility] [address] [place], [address] Comprehensive Metabolic Prof alon 12-25-2024 Albumin [Mass/Vol] 4.4 g/dL Normal 3.5-5.0 [facility] Comment on above: Performed By: #### L 500.4100, L500.4050, L100.0100 #### [facility] [address] [place], [address] Albumin/Globulin [Mass ratio] 1.6 {ratio} Normal 0.9-2.4 [facility] Comment on above: Performed By: #### L 500.4100, L500.4050, L100.0100 #### [facility] [address] [place], [address] ALK PHOS 58 U/L Normal 35-104 [facility] Comment on above: Performed By: #### L 500.4100, L500.4050, L100.0100 #### [facility] [address] [place], [address] ALT [Catalytic activity/Vol] 34 U/L Normal <=34 [facility] Comment on above: Performed By: #### L 500.4100, L500.4050, L100.0100 #### [facility] [address] [place], [address] AST [Catalytic activity/Vol] 26 U/L Normal <=31 [facility] Comment on above: Performed By: #### L 500.4100, L500.4050, L100.0100 #### [facility] [address] [place], [address] Bilirubin [Mass/Vol] 0.39 mg/dL Normal 0.00-1.30 [facility] Comment on above: Performed By: #### L 500.4100, L500.4050, L100.0100 #### [facility] [address] [place], [address] BUN/CRE 24.1 RATIO High 10-20 [facility] Comment on above: Performed By: #### L 500.4100, L500.4050, L100.0100 #### [facility] [address] [place], [address] Calcium [Mass/Vol] 9.5 mg/dL Normal 7.6-11.0 [facility] Comment on above: Performed By: #### L 500.4100, L500.4050, L100.0100 #### [facility] [address] [place], [address] Chloride [Moles/Vol] 106 mmol/L Normal 98-108 [facility] Comment on above: Performed By: #### L 500.4100, L500.4050, L100.0100 #### [facility] [address] [place], [address] CO2 [Moles/Vol] 21.7 mmol/L Normal 21.0-32.0 [facility] Comment on above: Performed By: #### L 500.4100, L500.4050, L100.0100 #### [facility] [address] [place], [address] Creatinine [Mass/Vol] 0.72 mg/dL Normal 0.70-1.20 [facility] Comment on above: Performed By: #### L 500.4100, L500.4050, L100.0100 #### [facility] [address] [place], [address] GAP 14 Normal 5-15 [facility] Comment on above: Performed By: #### L 500.4100, L500.4050, L100.0100 #### [facility] [address] [place], [address] GFR/1.73 sq M.predicted among non-blacks MDRD (S/P/Bld) [Vol rate/Area] 98 mL/min/{1.73_m2} Normal >60 [facility] Comment on above: Result Comment: mL/m in/1.73m2 CKD-EPI Creatinine Equation (2020) Performed By: #### L 500.4100, L500.4050, L100.0100 #### [facility] [address] [place], [address] Globulin (S) [Mass/Vol] 2.7 g/dL Normal 2.2-4.2 [facility] Comment on above: Performed By: #### L 500.4100, L500.4050, L100.0100 #### [facility] [address] [place], [address] Glucose [Mass/Vol] 180 mg/dL High 70-99 [facility] Comment on above: Performed By: #### L 500.4100, L500.4050, L100.0100 #### [facility] [address] [place], [address] Potassium [Moles/Vol] 3.9 mmol/L Normal 3.3-5.1 [facility] Comment on above: Performed By: #### L 500.4100, L500.4050, L100.0100 #### [facility] [address] [place], [address] Sodium [Moles/Vol] 142 mmol/L Normal 133-145 [facility] Comment on above: Performed By: #### L 500.4100, L500.4050, L100.0100 #### [facility] [address] [place], [address] T PROT 7.1 g/dL Normal 5.9-8.4 [facility] Comment on above: Performed By: #### L 500.4100, L500.4050, L100.0100 #### [facility] [address] [place], [address] Urea nitrogen [Mass/Vol] 17 mg/dL Normal 4-19 [facility] Comment on above: Performed By: #### L 500.4100, L500.4050, L100.0100 #### [facility] [address] [place], [address] Lipid Profileon 12-25-2024 CHOL:HDL 5.95 Normal [facility] Comment on above: Performed By: #### L 500.4100, L500.4050, L100.0100 #### [facility] [address] [place], [address] Cholesterol [Mass/Vol] 166 mg/dL Normal <=200 [facility] Comment on above: Result Comment: Chol esterol level, Desirable <200 mg/dL Borderline high cholesterol 200-239 mg/dL High cholesterol >=240 mg/dL Recommendations of the NCEP Adult Treatment Panel for the following risk-cutoff thresholds for the [place] population. Performed By: #### L 500.4100, L500.4050, L100.0100 #### [facility] [address] [place], [address] Cholesterol in HDL [Mass/Vol] 28 mg/dL Low [facility] Comment on above: Result Comment: [place] onal Cholesterol Education Program (NCEP) guidelines: <40 mg/dL: Low HDL-cholesterol (major risk factor for CHD) >= 60 mg/dL: High HDL-cholesterol (negative risk factor for CHD) HDL-cholesterol is affected by a number of factors, e.g. smoking, exercise, hormones, sex and age. Performed By: #### L 500.4100, L500.4050, L100.0100 #### [facility] [address] [place], [address] Cholesterol in LDL [Mass/Vol] 38 mg/dL Normal [facility] Comment on above: Result Comment: Bord aqltpe=244-091 mg/dL Higher Snbx=323 mg/dL or greater Performed By: #### L 500.4100, L500.4050, L100.0100 #### [facility] [address] [place], [address] Cholesterol in VLDL [Mass/Vol] 100 mg/dL High 5-40 [facility] Comment on above: Performed By: #### L 500.4100, L500.4050, L100.0100 #### [facility] [address] [place], [address] Triglyceride [Mass/Vol] 500 mg/dL High [facility] Comment on above: Result Comment: The drugs N-Acetylcysteine and Metamizole may falsely depress this assay. Normal range: <150 mg/dL Borderline High: 150-199 mg/dL High: 200-499 mg/dL Very High: >500 mg/dL Performed By: #### L 500.4100, L500.4050, L100.0100 #### [facility] [address] [place], [address] Absolute lymphocyte countOrd ered By: Herlinda Zapata on 12-24-2024 Lymphocytes Auto (Unsp spec) [#/Vol] 4.02 10*3/uL 0.83-4.51 [facility] Absolute neutrophil countOrd ered By: Herlinda Zapata on 12-24-2024 Neutrophils (Bld) [#/Vol] 4.6 10*3/uL 2.0-7.7 [facility] Anion gap in Serum or Plasma Ordered By: Herlinda Zapata on 12-24-2024 Anion gap [Moles/Vol] 14 mmol/L 5-15 [facility] Automated lymphocyte count a s percentage of total leukocytesOrdered By: Herlinda Zapata on 12-24-2024 Lymphocytes/100 WBC Auto (Unsp spec) 44.3 % High 19-41 [facility] BUN/creatinine ratioOrdered By: Herlinda Zapata on 12-24-2024 Urea nitrogen/Creatinine [Mass ratio] 24.1 mg/mg High 10-20 [facility] Basophil percentageOrdered B y: Herlinda Zapata on 12-24-2024 Basophils/100 WBC (Bld) 0.3 % 0-1 [facility] Bilirubin, totalOrdered By: Herlinda Zapata on 12-24-2024 Bilirubin [Mass/Vol] 0.39 mg/dL 0.00-1.30 [facility] Calculated very low density lipoprotein (VLDL) cholesterol measurementOrdered By: Herlinda Zapata on 12-24-2024 Calculated very low density lipoprotein (VLDL) cholesterol measurement 100 mg/dL High 5-40 [facility] Carbon dioxide, total [Moles /volume] in Central venous bloodOrdered By: Herlinda Zapata on 12-24-2024 CO2 [Moles/Vol] 21.7 mmol/L 21.0-32.0 [facility] Chloride assayOrdered By: Do ra Zapata on 12-24-2024 Chloride [Moles/Vol] 106 mmol/L 98-108 [facility] Eosinophil percentageOrdered By: Herlinda Zapata on 12-24-2024 Eosinophils/100 WBC (Bld) 0.8 % 0-5 [facility] Erythrocyte distribution wid th ratioOrdered By: Herlinda Zapata on 12-24-2024 Erythrocyte distribution width (RBC) [Ratio] 13.2 % 11.6-14.6 [facility] Erythrocyte distribution wid th standard deviationOrdered By: Herlinda Zapata on 12-24-2024 Erythrocyte distribution width (RBC) [Ratio] 42.5 fl 35.1-43.9 [facility] Glomerular filtration rate ( GFR) estimation/1.73 sq m using serum, plasma, or whole bOrdered By: Herlinda Zapata on 12-24-2024 GFR/1.73 sq M.predicted among non-blacks MDRD (S/P/Bld) [Vol rate/Area] 98 mL/min/{1.73_m2} >60 [facility] Comment on above: mL/min/1.73m2 CKD-EP I Creatinine Equation (2020) Hematocrit Auto (Bld) [Volum e fraction]Ordered By: Herlinda Zapata on 12-24-2024 Hematocrit (Bld) [Volume fraction] 40.3 % 37-47 [facility] Hemoglobin measurementOrdere d By: Herlinda Zapata on 12-24-2024 Hemoglobin (Bld) [Mass/Vol] 12.8 g/dL 12.0-15.0 [facility] Immature granulocytes/100 WB C Auto (Bld)Ordered By: Herlinda Zapata on 12-24-2024 Immature granulocytes/100 WBC (Bld) 0.200 % 0.0-0.9 [facility] Comment on above: IG% - Immature Granu locytes (promyelocytes, myelocytes and metamyelocytes) > 1% indicates that a LEFT SHIFT is Present. LDL calc ser/plasOrdered By: Herlinda Zapata on 12-24-2024 Cholesterol in LDL [Mass/Vol] 38 mg/dL [facility] Comment on above: Jaiyqgkszh=983-354 m g/dL & Higher Gbnx=774 mg/dL or greater Laboratory - Chemistry and C hemistry - challengeOrdered By: Herlinda Zapata on 12-24-2024 AST [Catalytic activity/Vol] 26 U/L <32 [facility] - Hematology and Cell countsOrdered By: Herlinda Zapata on 12-24-2024 HbA1c (Bld) [Mass fraction] 8.1 % High 4.2-6.3 [facility] MCV (mean corpuscular volume ) determinationOrdered By: Herlinda Zapata on 12-24-2024 MCV (RBC) [Entitic vol] 87.8 fL 81-99 [facility] Mean corpuscular hemoglobin (MCH) determinationOrdered By: Herlinda Zapata on 12-24-2024 MCH (RBC) [Entitic mass] 27.9 pg 27.0-32.0 [facility] Mean corpuscular hemoglobin concentration (MCHC) determinationOrdered By: Herlinda Zapata on 12-24-2024 MCHC (RBC) [Mass/Vol] 31.8 g/dL Low 32-36 [facility] Mean platelet volume determi nationOrdered By: Herlinda Zapata on 12-24-2024 Platelet mean volume (Bld) [Entitic vol] 11.5 fL 6.2-12.0 [facility] Monocyte percentageOrdered B y: Herlinda Zapata on 12-24-2024 Monocytes/100 WBC (Bld) 4.1 % 0-10 [facility] Neutrophil percentageOrdered By: Herlinda Zapata on 12-24-2024 Neutrophils/100 WBC (Bld) 50.3 % 47-70 [facility] Nucleated red blood cell per centageOrdered By: Herlinda Zapata on 12-24-2024 Nucleated RBC/100 WBC (Bld) [Ratio] 0 % 0-5 [facility] Platelet countOrdered By: Do ra Zapata on 12-24-2024 Platelets (Bld) [#/Vol] 282 10*3/uL 150-450 [facility] Potassium measurement (mass/ volume)Ordered By: Herlinda Zapata on 12-24-2024 Potassium (Unsp spec) [Mass/Vol] 3.9 mmol/L 3.3-5.1 [facility] RBC Auto (Bld) [#/Vol]Ordere d By: Herlinda Zapata on 12-24-2024 RBC (Bld) [#/Vol] 4.59 10*6/uL 4.2-5.[address] [facility] Screening total cholesterol/ high density lipoprotein (HDL) cholesterol ratioOrdered By: Herlinda Zapata on 12-24-2024 Cholesterol.total/Elvi sterol in HDL [Mass ratio] 5.95 {ratio} [facility] Serum creatinine measurement (mass/volume)Ordered By: Herlinda Zapata on 12-24-2024 Creatinine [Mass/Vol] 0.72 mg/dL 0.70-1.20 [facility] Serum globulin measurementOr dered By: Herlinda Zapata on 12-24-2024 Globulin (S) [Mass/Vol] 2.7 g/dL 2.2-4.2 [facility] Serum glucose measurement (m ass/volume)Ordered By: Herlinda Zapata on 12-24-2024 Glucose [Mass/Vol] 180 mg/dL High 70-99 [facility] Serum or plasma alanine lechuga otransferase (ALT) measurementOrdered By: Herlinda Zapata on 12-24-2024 ALT [Catalytic activity/Vol] 34 U/L <35 [facility] Serum or plasma albumin julia urement (mass/volume)Ordered By: Herlinda Zapata on 12-24-2024 Albumin [Mass/Vol] 4.4 g/dL 3.5-5.0 [facility] Serum or plasma albumin/glob ulin mass ratioOrdered By: Herlinda Zapata on 12-24-2024 Albumin/Globulin [Mass ratio] 1.6 {ratio} 0.9-2.4 [facility] Serum or plasma alkaline ira sphatase measurementOrdered By: Herlinda Zapata on 12-24-2024 ALP [Catalytic activity/Vol] 58 U/L 35-104 [facility] Serum or plasma calcium julia urement (mass/volume)Ordered By: Herlinda Zapata on 12-24-2024 Calcium [Mass/Vol] 9.5 mg/dL 7.6-11.0 [facility] Serum or plasma cholesterol in HDL measurement (mass/volume)Ordered By: Herlinda Zapata on 12-24-2024 Cholesterol in HDL [Mass/Vol] 28 mg/dL Low >40 [facility] Comment on above: National Cholesterol Education Program (NCEP) guidelines:<40 mg/dL: Low HDL-cholesterol (major risk factor for CHD)>= 60 mg/dL: High HDL-cholesterol (negative risk factor for CHD)HDL-cholesterol is affected by a number of factors, e.g. smoking, exercise, hormones, sex and age. Serum or plasma cholesterol measurement (mass/volume)Ordered By: Herlinda Zapata on 12-24-2024 Cholesterol [Mass/Vol] 166 mg/dL <201 [facility] Comment on above: Cholesterol level, D esirable <200 mg/dLBorderline high cholesterol 200-239 mg/dLHigh cholesterol >=240 mg/dLRecommendations of the NCEP Adult Treatment Panel for the following risk-cutoff thresholds for the [place] population. Serum or plasma urea nitroge n measurement (mass/volume)Ordered By: Herlinda Zapata on 12-24-2024 Urea nitrogen [Mass/Vol] 17 mg/dL 4-19 [facility] Sodium levelOrdered By: Herlinda Zapata on 12-24-2024 Sodium [Moles/Vol] 142 mmol/L 133-145 [facility] Total proteinOrdered By: James Zapata on 12-24-2024 Protein [Mass/Vol] 7.1 g/dL 5.9-8.4 [facility] Triglycerides measurementOrd ered By: Herlinda Zapata on 12-24-2024 Triglyceride [Mass/Vol] 500 mg/dL High <199 [facility] Comment on above: The drugs N-Acetylcy steine and Metamizole may falsely depress this assay. Normal range: <150 mg/dLBorderline High: 150-199 mg/dLHigh: 200-499 mg/dLVery High: >500 mg/dL White blood cell (WBC) count Ordered By: Herlinda Zapata on 12-24-2024 WBC (Bld) [#/Vol] 9.1 10*3/uL 4.4-11.0 [facility] XR LUMBAR PARS 4V AP/LAT/OBL X2on 12-24-2024 XR LUMBAR PARS 4V AP/LAT/OBL X2 * * *Final Report* * * DATE OF EXAM: Dec 24 2024 4:30PM LDX 5233 - XR LUMBAR PARS 4V AP/LAT/OBL X2 / PROCEDURE REASON: M51.26, M54.14 * * * * Physician Interpretation * * * * EXAM: LUMBAR SPINE, 4 VIEWS; THORACIC SPINE, 3 VIEWS CLINICAL: 54-year-old female with pain TECHNIQUE: AP, lateral, obliques of the lumbar spine; AP, lateral, swimmer's view the thoracic spine COMPARISON: None RESULTS: Counting reference: Anatomic Variant: None. The first rib-bearing vertebral bodies considered T1. L4-5 is considered the level of the iliac crest and assume there are 5 lumbar-type vertebrae. There are 11 rib-bearing vertebral bodies and transitional vertebrae in the T12 position and 5 lumbar vertebrae. There are also small hypoplastic cervical spine on the right. Prominent kyphosis centered at T5. Thoracic vertebral bodies and pedicles are intact. Disc space narrowing and osteophytes throughout the thoracic spine the level of the T10/T11 and at T12 the transitional vertebrae. Lumbar vertebral bodies and pedicles are intact. Marked disc spacing at L5/S1, the remaining lumbar disc spaces are maintained. Mild levoscoliosis centered at L1 3. Vertebral bodies and pedicles are intact. Facet narrowing at L4/L5 and L5/S1. 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 MARKED DEGENERATIVE DISC DISEASE AT L5/S1 AND FACET DEGENERATIVE CHANGES IN THE LOWER LUMBAR SPINE. Sales And Merchandising Representative: PSCB Transcribe Date/Time: Dec 28 2024 5:20P Dictated by : EMERALD CRAMER MD This examination was interpreted and the report reviewed and electronically signed by: EMERALD CRAMER MD on Dec 28 2024 5:25PM EST [id number] Normal [facility] XR THORACIC 3V AP/LAT/SWIMME RSon 12-24-2024 XR THORACIC 3V AP/LAT/SWIMMERS * * *Final Report* * * DATE OF EXAM: Dec 24 2024 4:30PM LDX 5261 - XR THORACIC 3V AP/LAT/SWIMMERS / PROCEDURE REASON: M51.26, M54.14 * * * * Physician Interpretation * * * * EXAM: LUMBAR SPINE, 4 VIEWS; THORACIC SPINE, 3 VIEWS CLINICAL: 54-year-old female with pain TECHNIQUE: AP, lateral, obliques of the lumbar spine; AP, lateral, swimmer's view the thoracic spine COMPARISON: None RESULTS: Counting reference: Anatomic Variant: None. The first rib-bearing vertebral bodies considered T1. L4-5 is considered the level of the iliac crest and assume there are 5 lumbar-type vertebrae. There are 11 rib-bearing vertebral bodies and transitional vertebrae in the T12 position and 5 lumbar vertebrae. There are also small hypoplastic cervical spine on the right. Prominent kyphosis centered at T5. Thoracic vertebral bodies and pedicles are intact. Disc space narrowing and osteophytes throughout the thoracic spine the level of the T10/T11 and at T12 the transitional vertebrae. Lumbar vertebral bodies and pedicles are intact. Marked disc spacing at L5/S1, the remaining lumbar disc spaces are maintained. Mild levoscoliosis centered at L1 3. Vertebral bodies and pedicles are intact. Facet narrowing at L4/L5 and L5/S1. 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 MARKED DEGENERATIVE DISC DISEASE AT L5/S1 AND FACET DEGENERATIVE CHANGES IN THE LOWER LUMBAR SPINE. Sales And Merchandising Representative: GERMAN Transcribe Date/Time: Dec 28 2024 5:20P Dictated by : EMERALD CRAMER MD This examination was interpreted and the report reviewed and electronically signed by: EMERALD CRAMER MD on Dec 28 2024 5:25PM EST [id number] Normal [facility] DBT Breast - bilateral rosa saldivar 07-13-2024 No mammographic evidence of malignancy. ASSESSMENT: Category 1 Negative RECOMMENDATION: Routine screening mammogram in 1 year. Bilateral Recommend consultation with high risk clinic. CANCER RISK ASSESSMENT: This risk assessment is based on patient provided information collected in a risk survey taken at the time of this examination. LIFETIME BREAST CANCER RISK: Ar[place] 8: 25% - If greater than or equal to 20%, consider annual mammogram and annual screening Breast MRI or follow up in high risk clinic. Is the patient at elevated risk based on the HBOC criteria? Yes (Hereditary Breast and Ovarian Cancer) - If Yes, consider genetic counseling and testing with high risk follow up Is the patient at elevated risk based on the Estrella Syndrome criteria? No - If Yes, consider genetic counseling and testing with high risk follow up. Report Dictated on Electronically Signed By: Kaylan Gordon MD Electronically Signed Date/Time: 07/13/2024 12:29 PM [facility] Patient Name: CRYSTAL SCHULTZ : 1970 [facility]#: [id number] Exam Date/Time: 07/13/2024 11:16 Procedure: BI MAMMOGRAM SCREENING TOMOSYNTHESIS BILATERAL Ordering Provider: PAVON NANCY Reason For Exam: This exam was performed at [address] [address] RISK ALERT: The Cancer Risk Assessment scores below the recommendation of this report contain an outcome above the normal risk range. PATIENT CANCER HISTORY: No Personal History of Cancer FAMILY CANCER HISTORY: Mother Breast Cancer age 61 Maternal Grandmother Breast Cancer Paternal Grandmother Breast Cancer age 80 Maternal Aunt Breast Cancer age 62 Paternal Aunt Breast Cancer age 70 Maternal Cousin Breast Cancer age 40 Maternal Cousin Ovarian Carcinoma age 40 Image views: 2D Bilateral CC and MLO views were acquired. 3D Bilateral CC and MLO views were acquired. Images were reviewed with CAD. Markings on images: BB's = Nipples; skin lesions Open coquille = Palpable Line = Scar COMPARISON: 05/19/2020, 04/23/2023 TISSUE DENSITY: BIRADS A - The breasts are almost entirely fatty. FINDINGS: No suspicious masses, architectural distortions or suspiciously clustered microcalcifications are identified. There is no evidence of skin thickening or nipple retraction. There are no significant changes when compared with prior studies. [facility] Kaylan Gordon MD - 07/13/2024 Patient Name: CRYSTAL SCHULTZ : 1970 [id number] Exam Date/Time: 07/13/2024 11:16 Procedure: BI MAMMOGRAM SCREENING TOMOSYNTHESIS BILATERAL Ordering Provider: PAVON NANCY Reason For Exam: This exam was performed at [address] [address] RISK ALERT: The Cancer Risk Assessment scores below the recommendation of this report contain an outcome above the normal risk range. PATIENT CANCER HISTORY: No Personal History of Cancer FAMILY CANCER HISTORY: Mother Breast Cancer age 61 Maternal Grandmother Breast Cancer Paternal Grandmother Breast Cancer age 80 Maternal Aunt Breast Cancer age 62 Paternal Aunt Breast Cancer age 70 Maternal Cousin Breast Cancer age 40 Maternal Cousin Ovarian Carcinoma age 40 Image views: 2D Bilateral CC and MLO views were acquired. 3D Bilateral CC and MLO views were acquired. Images were reviewed with CAD. Markings on images: BB's = Nipples; skin lesions Open coquille = Palpable Line = Scar COMPARISON: 05/19/2020, 04/23/2023 TISSUE DENSITY: BIRADS A - The breasts are almost entirely fatty. FINDINGS: No suspicious masses, architectural distortions or suspiciously clustered microcalcifications are identified. There is no evidence of skin thickening or nipple retraction. There are no significant changes when compared with prior studies. IMPRESSION: No mammographic evidence of malignancy. ASSESSMENT: Category 1 Negative RECOMMENDATION: Routine screening mammogram in 1 year. Bilateral Recommend consultation with high risk clinic. CANCER RISK ASSESSMENT: This risk assessment is based on patient provided information collected in a risk survey taken at the time of this examination. LIFETIME BREAST CANCER RISK: Arlette 8: 25% - If greater than or equal to 20%, consider annual mammogram and annual screening Breast MRI or follow up in high risk clinic. Is the patient at elevated risk based on the HBOC criteria? Yes (Hereditary Breast and Ovarian Cancer) - If Yes, consider genetic counseling and testing with high risk follow up Is the patient at elevated risk based on the Estrella Syndrome criteria? No - If Yes, consider genetic counseling and testing with high risk follow up. Report Dictated on Electronically Signed By: Kaylan Gordon MD Electronically Signed Date/Time: 07/13/2024 12:29 PM [facility] Radiology Study observation (narrative) [facility] DBT Breast - bilateral scree ningOrdered By: Kaylan Gordon on 07-13-2024 [facility] Work Phone: DBT Breast - bilateral scree ningon 04-24-2023 No mammographic evidence of malignancy. ASSESSMENT: Category 1 Negative RECOMMENDATION: Routine screening mammogram in 1 year. Bilateral CANCER RISK ASSESSMENT: This risk assessment is based on patient provided information collected in a risk survey taken at the time of this examination. LIFETIME BREAST CANCER RISK: [place]: 33.54 % - If greater than or equal to 20%, consider annual mammogram and annual screening Breast MRI or follow up in high risk clinic. Is the patient at elevated risk based on the HBOC criteria? NCCN HBOC Guidelines: 100 % (Hereditary Breast and Ovarian Cancer) - If 100%, consider genetic counseling and testing with high risk follow up. Is the patient at elevated risk based on the Estrella Syndrome criteria? NCCN Estrella: 0 % - If 100%, consider genetic counseling and testing with high risk follow up. Report Dictated on Electronically Signed By: Kaylan Gordon MD Electronically Signed Date/Time: 04/24/2023 12:16 PM [facility] [employer] [facility] Patient Name: CRYSTAL SCHULTZ : 1970 Exam Date/Time: 04/23/2023 13:31 Procedure: BI MAMMOGRAM SCREENING TOMOSYNTHESIS BILATERAL Ordering Provider: BYRNE SARAH Reason For Exam: Routine Screening Image views: 2D Bilateral CC and MLO views were acquired. 3D Bilateral CC and MLO views were acquired. Images were reviewed with CAD. Markings on images: BB's = Nipples; skin lesions Open coquille = Palpable Line = Scar COMPARISON: 07/10/2019, 05/19/2020 TISSUE DENSITY: BIRADS B - There are scattered fibroglandular densities. FINDINGS: No suspicious masses, architectural distortions or suspiciously clustered microcalcifications are identified. There is no evidence of skin thickening or nipple retraction. There are no significant changes when compared with prior studies. [facility] Kaylan Gordon MD - 04/24/2023 Patient Name: CRYSTAL SCHULTZ : 1970 [id number] Exam Date/Time: 04/23/2023 13:31 Procedure: BI MAMMOGRAM SCREENING TOMOSYNTHESIS BILATERAL Ordering Provider: BYRNE SARAH Reason For Exam: Routine Screening Image views: 2D Bilateral CC and MLO views were acquired. 3D Bilateral CC and MLO views were acquired. Images were reviewed with CAD. Markings on images: BB's = Nipples; skin lesions Open coquille = Palpable Line = Scar COMPARISON: 07/10/2019, 05/19/2020 TISSUE DENSITY: BIRADS B - There are scattered fibroglandular densities. FINDINGS: No suspicious masses, architectural distortions or suspiciously clustered microcalcifications are identified. There is no evidence of skin thickening or nipple retraction. There are no significant changes when compared with prior studies. IMPRESSION: No mammographic evidence of malignancy. ASSESSMENT: Category 1 Negative RECOMMENDATION: Routine screening mammogram in 1 year. Bilateral CANCER RISK ASSESSMENT: This risk assessment is based on patient provided information collected in a risk survey taken at the time of this examination. LIFETIME BREAST CANCER RISK: [place]: 33.54 % - If greater than or equal to 20%, consider annual mammogram and annual screening Breast MRI or follow up in high risk clinic. Is the patient at elevated risk based on the HBOC criteria? NCCN HBOC Guidelines: 100 % (Hereditary Breast and Ovarian Cancer) - If 100%, consider genetic counseling and testing with high risk follow up. Is the patient at elevated risk based on the Estrella Syndrome criteria? NCCN Estrella: 0 % - If 100%, consider genetic counseling and testing with high risk follow up. Report Dictated on Electronically Signed By: Kaylan Gordon MD Electronically Signed Date/Time: 04/24/2023 12:16 PM EDT [facility] DBT Breast - bilateral scree ningOrdered By: Kaylan Gordon on 04-24-2023 [facility] Work Phone: DBT Breast - bilateral scree ningon 04-23-2023 Radiology Study observation (narrative) [facility] Culture, urineOrdered By: Do ra Zapata on 01-18-2023 Bacteria identified Cx Nom (U) Culture exhibits no growth. [facility] [facility] - Chemistry and C hemistry - challengeon 01-16-2023 Bilirubin Ql (U) Negative [facility] Glucose Ql (U) 500 g/dL [facility] Ketones Ql (U) Negative [facility] pH (U) 5.5 [pH] [facility] Specific gravity (U) [Rel density] 1.025 [facility] Urobilinogen (U) [Mass/Vol] 0.4534125 mg/dL [facility] Laboratory - Hematology and Cell countson 01-16-2023 Hemoglobin Ql (U) Negative [facility] Laboratory - Specimen inform ationon 01-16-2023 Clarity (U) Clear [facility] Color (U) Yellow [facility] Laboratory - Urinalysison Nitrite Ql (U) Negative [facility] Protein Ql (U) Negative [facility] No Panel Informationon 01-16 Urine Leukocytes Negatve [facility] Urine Non-Hemolyzed Blood [facility] Laboratory - Hematology and Cell countson 01-03-2023 HbA1c (Bld) [Mass fraction] 9.0 % 4.2-6.3 [facility] CBC panel Auto (Bld)on 11-15 Erythrocyte distribution width (RBC) [Ratio] 13.6 % 11.0 - 15.0 % [facility] Hematocrit (Bld) [Volume fraction] 41.0 % 35.0 - 45.0 % [facility] Hemoglobin (Bld) [Mass/Vol] 13.6 g/dL 11.7 - 15.5 g/dL [facility] MCH (RBC) [Entitic mass] 27.9 pg 27.0 - 33.0 pg [facility] MCHC (RBC) [Mass/Vol] 33.2 g/dL 32.0 - 36.0 g/dL [facility] MCV (RBC) [Entitic vol] 84.2 fL 80.0 - 100.0 fL [facility] Platelet mean volume (Bld) [Entitic vol] 10.1 fL 7.5 - 12.5 fL [facility] Platelets (Bld) [#/Vol] 260 10*3/uL [facility] RBC (Bld) [#/Vol] 4.87 10*6/uL [facility] WBC (Bld) [#/Vol] 6.7 10*3/uL [facility] Cholesterol in LDL Direct as say [Mass/Vol]on 11-15-2022 Cholesterol in LDL [Mass/Vol] 58 mg/dL NINF - 100 mg/dL [facility] Comment on above: Desirable range <100 mg/dL for primary prevention; <70 mg/dL for patients with CHD or diabetic patients with > or = 2 CHD risk factors. Comprehensive metabolic 1998 panelon 11-15-2022 Albumin [Mass/Vol] 4.4 g/dL 3.6 - 5.1 g/dL [facility] ALP [Catalytic activity/Vol] 66 U/L 37 - 153 U/L [facility] ALT [Catalytic activity/Vol] 25 U/L 6 - 29 U/L [facility] Anion gap [Moles/Vol] 9 mmol/L [facility] AST [Catalytic activity/Vol] 17 U/L 10 - 35 U/L [facility] Bilirubin [Mass/Vol] 0.7 mg/dL 0.2 - 1 .2 mg/dL [facility] Calcium [Mass/Vol] 9.5 mg/dL 8.6 - 10. 4 mg/dL [facility] Chloride [Moles/Vol] 102 mmol/L 98 - 11 0 mmol/L [facility] CO2 [Moles/Vol] 27 mmol/L 20 - 32 mmol/L [facility] Creatinine [Mass/Vol] 0.55 mg/dL 0.50 - 1.03 mg/dL [facility] GFR/1.73 sq M.predicted among non-blacks MDRD (S/P/Bld) [Vol rate/Area] 110 mL/min/{1.73_m2} > OR = 60 mL/min/1.73m 2 [facility] Comment on above: The eGFR is based on the CKD-EPI 2020 equation. To calculate the new eGFR from a previous Creatinine or Cystatin C result, go to https://www.kidney.org/professionals/ kdoqi/gfr%5Fcalculator Glucose [Mass/Vol] 279 mg/dL High 65 - 139 mg/dL [facility] Comment on above: Non-fasting reference interval For someone without known diabetes, a glucose value >125 mg/dL indicates that they may have diabetes and this should be confirmed with a follow-up test. Potassium [Moles/Vol] 4.0 mmol/L 3.5 - 5.3 mmol/L [facility] Protein [Mass/Vol] 6.8 g/dL 6.1 - 8.1 g/dL [facility] Sodium [Moles/Vol] 138 mmol/L 135 - 146 mmol/L [facility] Urea nitrogen [Mass/Vol] 13 mg/dL 7 - 25 mg/dL [facility] Hemoglobin A1con 11-15-2022 HbA1c (Bld) [Mass fraction] 11.8 % [facility] Comment on above: For someone without known diabetes, a hemoglobin A1c value of 6.5% or greater indicates that they may have diabetes and this should be confirmed with a follow-up test. For someone with known diabetes, a value <7% indicates that their diabetes is well controlled and a value greater than or equal to 7% indicates suboptimal control. A1c targets should be individualized based on duration of diabetes, age, comorbid conditions, and other considerations. Currently, no consensus exists regarding use of hemoglobin A1c for diagnosis of diabetes for children. Lipid 1996 panelon 3 Cholesterol [Mass/Vol] 208 mg/dL High NINF - 200 mg/dL [facility] Cholesterol in HDL [Mass/Vol] 34 mg/dL Low > OR = 50 [facility] Cholesterol in LDL [Mass/Vol] [facility] Comment on above: LDL cholesterol not calculated. Triglyceride levels greater than 400 mg/dL invalidate calculated LDL results. Reference range: <100 Desirable range <100 mg/dL for primary prevention; <70 mg/dL for patients with CHD or diabetic patients with > or = 2 CHD risk factors. LDL-C is now calculated using the Danie calculation, which is a validated novel method providing better accuracy than the Friedewald equation in the estimation of LDL-C. Anand SS et al. ROWDY. 2013;310(19): 4871-8343 (http://education.[employer]/faq/WDY829) Cholesterol non HDL [Mass/Vol] 174 mg/dL High [facility] Comment on above: For patients with di abetes plus 1 major ASCVD risk factor, treating to a non-HDL-C goal of <100 mg/dL (LDL-C of <70 mg/dL) is considered a therapeutic option. Cholesterol.total/Elvi sterol in HDL [Mass ratio] 6.1 {ratio} High [facility] Triglyceride [Mass/Vol] 716 mg/dL High [facility] - 150 mg/dL [facility] Comment on above: If a non-fasting specimen was collected, consider repeat triglyceride testing on a fasting specimen if clinically indicated. Mendez et al. J. of Clin. Lipidol. 2015;9:129-169. There is increased risk of pancreatitis when the triglyceride concentration is very high (> or = 500 mg/dL, especially if > or = 1000 mg/dL). Mendez et al. J. of Clin. Lipidol. 2015;9:129-169. No Panel Informationon 11-15 Interpretation and review of laboratory results Abnormal [facility] Test Authorization ([facility])on 11-15-2022 Client Contact: PRIMO Harper [facility] Comment [facility] Comment on above: Please have the [facility] physician or his or her authorized maintenance representative sign a copy of this report and promptly return it by faxing it to: [phone] or by returning the form to your bending roll hand. Reference Lab Test ID [id number] [facility] Reference Lab Test Name DIRECT MERLIN S [facility] Report Always Message Signature [facility] Comment on above: The laboratory testing on this patient was verbally requested or confirmed by the ordering physician or his or her authorized maintenance representative after contact with an employee of [employer]. Federal regulations require that we maintain on file written authorization for all laboratory testing. Accordingly we are asking that the ordering physician or his or her authorized maintenance representative sign a copy of this report and promptly return it to the chief client officer. Signature: CBC panel Auto (Bld)on 11-14 Erythrocyte distribution width (RBC) [Ratio] 13.6 % 11.0 - 15.0 % [facility] Hematocrit (Bld) [Volume fraction] 41.0 % 35.0 - 45.0 % [facility] Hemoglobin (Bld) [Mass/Vol] 13.6 g/dL 11.7 - 15.5 g/dL [facility] MCH (RBC) [Entitic mass] 27.9 pg 27.0 - 33.0 pg [facility] MCHC (RBC) [Mass/Vol] 33.2 g/dL 32.0 - 36.0 g/dL [facility] MCV (RBC) [Entitic vol] 84.2 fL 80.0 - 100.0 fL [facility] Platelet mean volume (Bld) [Entitic vol] 10.1 fL 7.5 - 12.5 fL [facility] Platelets (Bld) [#/Vol] 260 10*3/uL [facility] RBC (Bld) [#/Vol] 4.87 10*6/uL [facility] WBC (Bld) [#/Vol] 6.7 10*3/uL [facility] Comprehensive metabolic 1998 panelon 11-14-2022 Albumin [Mass/Vol] 4.4 g/dL 3.6 - 5.1 g/dL [facility] ALP [Catalytic activity/Vol] 66 U/L 37 - 153 U/L [facility] ALT [Catalytic activity/Vol] 25 U/L 6 - 29 U/L [facility] Anion gap [Moles/Vol] 9 mmol/L [facility] AST [Catalytic activity/Vol] 17 U/L 10 - 35 U/L [facility] Bilirubin [Mass/Vol] 0.7 mg/dL 0.2 - 1 .2 mg/dL [facility] Calcium [Mass/Vol] 9.5 mg/dL 8.6 - 10. 4 mg/dL [facility] Chloride [Moles/Vol] 102 mmol/L 98 - 11 0 mmol/L [facility] CO2 [Moles/Vol] 27 mmol/L 20 - 32 mmol/L [facility] Creatinine [Mass/Vol] 0.55 mg/dL 0.50 - 1.03 mg/dL [facility] GFR/1.73 sq M.predicted among non-blacks MDRD (S/P/Bld) [Vol rate/Area] 110 mL/min/{1.73_m2} > OR = 60 mL/min/1.73m 2 [facility] Comment on above: The eGFR is based on the CKD-EPI 2020 equation. To calculate the new eGFR from a previous Creatinine or Cystatin C result, go to https://www.kidney.org/professionals/ kdoqi/gfr%5Fcalculator Glucose [Mass/Vol] 279 mg/dL High 65 - 139 mg/dL [facility] Comment on above: Non-fasting reference interval For someone without known diabetes, a glucose value >125 mg/dL indicates that they may have diabetes and this should be confirmed with a follow-up test. Potassium [Moles/Vol] 4.0 mmol/L 3.5 - 5.3 mmol/L [facility] Protein [Mass/Vol] 6.8 g/dL 6.1 - 8.1 g/dL [facility] Sodium [Moles/Vol] 138 mmol/L 135 - 146 mmol/L [facility] Urea nitrogen [Mass/Vol] 13 mg/dL 7 - 25 mg/dL [facility] Hemoglobin A1con 11-14-2022 HbA1c (Bld) [Mass fraction] 11.8 % High [facility] Comment on above: For someone without known diabetes, a hemoglobin A1c value of 6.5% or greater indicates that they may have diabetes and this should be confirmed with a follow-up test. For someone with known diabetes, a value <7% indicates that their diabetes is well controlled and a value greater than or equal to 7% indicates suboptimal control. A1c targets should be individualized based on duration of diabetes, age, comorbid conditions, and other considerations. Currently, no consensus exists regarding use of hemoglobin A1c for diagnosis of diabetes for children. Lipid 1996 panelon 3 Cholesterol [Mass/Vol] 208 mg/dL High [facility] - 200 mg/dL [facility] Cholesterol in HDL [Mass/Vol] 34 mg/dL Low > OR = 50 [facility] Cholesterol in LDL [Mass/Vol] [facility] Comment on above: LDL cholesterol not calculated. Triglyceride levels greater than 400 mg/dL invalidate calculated LDL results. Reference range: <100 Desirable range <100 mg/dL for primary prevention; <70 mg/dL for patients with CHD or diabetic patients with > or = 2 CHD risk factors. LDL-C is now calculated using the Anand-Sandra calculation, which is a validated novel method providing better accuracy than the Friedewald equation in the estimation of LDL-C. Anand SS et al. ROWDY. 2013;310(19): 7242-1291 (http://education.[employer]/faq/KWZ884) Cholesterol non HDL [Mass/Vol] 174 mg/dL High [facility] Comment on above: For patients with di abetes plus 1 major ASCVD risk factor, treating to a non-HDL-C goal of <100 mg/dL (LDL-C of <70 mg/dL) is considered a therapeutic option. Cholesterol.total/Elvi sterol in HDL [Mass ratio] 6.1 {ratio} High [facility] Triglyceride [Mass/Vol] 716 mg/dL High [facility] - 150 mg/dL [facility] Comment on above: If a non-fasting specimen was collected, consider repeat triglyceride testing on a fasting specimen if clinically indicated. Mendez et al. J. of Clin. Lipidol. 2015;9:129-169. There is increased risk of pancreatitis when the triglyceride concentration is very high (> or = 500 mg/dL, especially if > or = 1000 mg/dL). Mendez et al. J. of Clin. Lipidol. 2015;9:129-169. No Panel Informationon 11-14 Interpretation and review of laboratory results Abnormal [facility] Test Authorization ([facility])on 11-14-2022 Client Contact: PRIMO [facility] Comment [facility] Comment on above: Please have the [facility] physician or his or her authorized maintenance representative sign a copy of this report and promptly return it by faxing it to: [phone] or by returning the form to your bending roll hand. Reference Lab Test ID [id number] [facility] Reference Lab Test Name SHAI Harper [facility] Report Always Message Signature [facility] Comment on above: The laboratory testing on this patient was verbally requested or confirmed by the ordering physician or his or her authorized maintenance representative after contact with an employee of [employer]. Federal regulations require that we maintain on file written authorization for all laboratory testing. Accordingly we are asking that the ordering physician or his or her authorized maintenance representative sign a copy of this report and promptly return it to the chief client officer. Signature: [facility] CBCon 10-18-2022 Erythrocyte distribution width (RBC) [Ratio] 13.0 % Normal 11.5 - 14.5 [facility] Comment on above: Performed By: #### C BC #### [facility] [address] [place] [address] Hematocrit (Bld) [Volume fraction] 44.3 % Normal 36.0 - 46.0 [facility] Comment on above: Performed By: #### C BC #### [facility] [address] [place] [address] Hemoglobin (Bld) [Mass/Vol] 13.9 g/dL Normal 12.0 - 16.0 [facility] Comment on above: Performed By: #### C BC #### [facility] [address] [place] [address] MCHC (RBC) [Mass/Vol] 31.4 g/dL Low 32.0 - 36.0 [facility] Comment on above: Performed By: #### C BC #### [facility] [address] [place] [address] MCV (RBC) [Entitic vol] 88 fL Normal 80 - 100 [facility] Comment on above: Performed By: #### C BC #### [facility] [address] [place] [address] NUCLEATED RBC 0.0 /100 WBC Normal 0.0-0.0 [facility] Comment on above: Performed By: #### C BC #### [facility] [address] [place] [address] Platelets (Bld) [#/Vol] 221 10*3/uL Normal 150 - 450 [facility] Comment on above: Performed By: #### C BC #### [facility] [address] [place] [address] RBC 5.02 x10E12/L Normal 4.00 - 5.20 [facility] Comment on above: Performed By: #### C BC #### [facility] [address] [place] [address] WBC (Bld) [#/Vol] 7.8 10*3/uL Normal 4.4 - 11.3 [facility] Comment on above: Performed By: #### C BC #### [facility] [address] [place] [address] COMPREHENSIVE PANELon 2022 Albumin [Mass/Vol] 4.3 g/dL Normal 3.4 - 5.0 [facility] Comment on above: Performed By: #### C MP #### [facility] [address] [place] [address] ALP [Catalytic activity/Vol] 68 U/L Normal 33 - 110 [facility] Comment on above: Performed By: #### C MP #### [facility] [address] [place] [address] ALT [Catalytic activity/Vol] 34 U/L Normal 7 - 45 [facility] Comment on above: Result Comment: Miladys ents treated with Sulfasalazine may generate falsely decreased results for ALT. Performed By: #### C MP #### [facility] [address] [place] [address] Anion gap [Moles/Vol] 15 mmol/L Normal 10 - 20 [facility] Comment on above: Performed By: #### C MP #### [facility] [address] [place] [address] AST [Catalytic activity/Vol] 22 U/L Normal 9 - 39 [facility] Comment on above: Performed By: #### C MP #### [facility] [address] [place] [address] Bilirubin [Mass/Vol] 0.8 mg/dL Normal 0.0 - 1.2 [facility] [place] Comment on above: Performed By: #### C MP #### [place] [address] [place] [address] Calcium [Mass/Vol] 9.6 mg/dL Normal 8.6 - 10.6 [facility] Comment on above: Performed By: #### C MP #### [place] [address] [place] [address] Chloride [Moles/Vol] 99 mmol/L Normal 98 - 107 [facility] [place] Comment on above: Performed By: #### C MP #### [place] [address] [place] [address] Creatinine [Mass/Vol] 0.57 mg/dL Normal 0.50 - 1.05 [facility] Comment on above: Performed By: #### C MP #### [facility] [address] [place] [address] eGFR FEMALE >90 Normal >90 [facility] Comment on above: Result Comment: CALC ULATIONS OF ESTIMATED GFR ARE PERFORMED USING THE 2020 CKD-EPI STUDY REFIT EQUATION WITHOUT THE RACE VARIABLE FOR THE IDMS-TRACEABLE CREATININE METHODS. https://jasn.asnjournals.org/content//ASN.2020 214789 Performed By: #### C MP #### [facility] [address] [place] [address] Glucose [Mass/Vol] 337 mg/dL High 74 - 99 [facility] Comment on above: Performed By: #### C MP #### [facility] [address] [place] [address] HCO3 (Bld) [Moles/Vol] 25 mmol/L Normal 21 - 32 [facility] Comment on above: Performed By: #### C MP #### [facility] [address] [place] [address] Potassium [Moles/Vol] 4.1 mmol/L Normal 3.5 - 5.3 [facility] Comment on above: Performed By: #### C MP #### [facility] [address] [place] [address] Protein [Mass/Vol] 7.0 g/dL Normal 6.4 - 8.2 [facility] Comment on above: Performed By: #### C MP #### [facility] [address] [place] [address] Sodium [Moles/Vol] 135 mmol/L Low 136 - 145 [facility] Comment on above: Performed By: #### C MP #### [facility] [address] [place] [address] Urea nitrogen [Mass/Vol] 13 mg/dL Normal 6 - 23 [facility] Comment on above: Performed By: #### C MP #### [facility] [address] [place] [address] MG Breast Tomosynthesis Diag nostic BIon 05-19-2020 MG Breast Tomosynthesis Diagnostic BI Patient Name: CRYSTAL SCHULTZ Mammography Exam Date/Time 05/19/2020 14:21:18 EDT Exam MG Breast Tomosynthesis BI Ordering Physician Silvana PAVON NANCY Accession Number [id number] CPT4 Codes 62823 (MG Breast Tomosynthesis BI), 07788 (MG MAMMO 2D DIAG BILAT) Reason For Exam lump in left breast Report TIME SINCE LAST MAMMOGRAM: Last mammogram was performed 10 months ago. REASON FOR EXAM: clinical finding. INDICATED PROBLEM: Indicated problem(s): left breast palpable abnormality. PROCEDURE: MG BREAST TOMOSYNTHESIS BL: MAY 19, 2020 - 2D/3D Procedure 3D Bilateral CC and MLO view(s) were taken. 2D Bilateral CC and MLO view(s) were taken. Prior study comparison: July 10, 2019, bilateral MG breast tomosynthesis bl scr performed at [facility]. May 26, 2018, bilateral MG breast tomosynthesis bl scr performed at [facility]. April 12, 2017, bilateral MG breast tomosynthesis bl scr performed at [facility]. March 21, 2016, bilateral MG breast tomosynthesis bl scr performed at [facility]. TISSUE DENSITY: BIRADS A - The breast tissue is almost entirely fat. . FINDINGS: Diagnostic imaging was performed for evaluation of two adjacent left breast lumps felt by the patient and referring clinician. Mammogram: No new masses, architectural distortions, or suspiciously clustered microcalcifications are seen in the right or left breast. There has been no significant interval mammographic change. The patient proceeded to ultrasound for further imaging evaluation. Left breast ultrasound: Targeted scanning at the sites of palpable concern at 10:00, 7 cm from the nipple, demonstrates a linear echogenic lesion within a lobular fat with an associated benign simple cyst that measures 0.4 cm. There are a few other tiny cysts also in this location. During the exam, the patient provided additional history of bruising in this location from unknown trauma. IMPRESSION: Constellation of findings within the left breast at the site of palpable concern, most consistent with benign fat necrosis. No mammographic or targeted sonographic evidence of malignancy. Markings on images: BB's = Nipples; skin lesions Open coquille = Palpable Line = Scar US BREAST LIMITED LEFT: MAY 19, 2020 - 2D digital mammography and tomosynthesis imaging were performed and reviewed with CAD. ASSESSMENT: Category 2 Benign (Overall) RECOMMENDATION: Routine screening mammogram of both breasts in 1 year. . Report Dictated on Final Signed Date and Time: 05/19/2020 3:32 pm Signed by: MD TARANGO KERISTEN L Normal [facility] US Breast Limited Lefton US Breast Limited Left Patient Name: CRYSTAL NAM Ultrasound Exam Date/Time 05/19/2020 14:35:24 EDT Exam US Breast Limited Left Ordering Physician Silvana PAVON NANCY Accession Number [id number] CPT4 Codes 71220 () Reason For Exam left breast lump Report TIME SINCE LAST MAMMOGRAM: Last mammogram was performed 10 months ago. REASON FOR EXAM: clinical finding. INDICATED PROBLEM: Indicated problem(s): left breast palpable abnormality. PROCEDURE: MG BREAST TOMOSYNTHESIS BL: MAY 19, 2020 - 2D/3D Procedure 3D Bilateral CC and MLO view(s) were taken. 2D Bilateral CC and MLO view(s) were taken. Prior study comparison: July 10, 2019, bilateral MG breast tomosynthesis bl scr performed at [facility]. May 26, 2018, bilateral MG breast tomosynthesis bl scr performed at [facility]. April 12, 2017, bilateral MG breast tomosynthesis bl scr performed at [facility]. March 21, 2016, bilateral MG breast tomosynthesis bl scr performed at [facility]. TISSUE DENSITY: BIRADS A - The breast tissue is almost entirely fat. . FINDINGS: Diagnostic imaging was performed for evaluation of two adjacent left breast lumps felt by the patient and referring clinician. Mammogram: No new masses, architectural distortions, or suspiciously clustered microcalcifications are seen in the right or left breast. There has been no significant interval mammographic change. The patient proceeded to ultrasound for further imaging evaluation. Left breast ultrasound: Targeted scanning at the sites of palpable concern at 10:00, 7 cm from the nipple, demonstrates a linear echogenic lesion within a lobular fat with an associated benign simple cyst that measures 0.4 cm. There are a few other tiny cysts also in this location. During the exam, the patient provided additional history of bruising in this location from unknown trauma. IMPRESSION: Constellation of findings within the left breast at the site of palpable concern, most consistent with benign fat necrosis. No mammographic or targeted sonographic evidence of malignancy. Markings on images: BB's = Nipples; skin lesions Open coquille = Palpable Line = Scar US BREAST LIMITED LEFT: MAY 19, 2020 - 2D digital mammography and tomosynthesis imaging were performed and reviewed with CAD. ASSESSMENT: Category 2 Benign (Overall) RECOMMENDATION: Routine screening mammogram of both breasts in 1 year. . Report Dictated on Final Signed Date and Time: 05/19/2020 3:32 pm Signed by: MD SUKHDEEP, ESTELA Decker Normal [facility] CT Maxillofacial w/o Contras ton 01-22-2020 CT Maxillofacial w/o Contrast Patient Name: CRYSTAL SCHULTZ CT Exam Date/Time 01/20/2020 13:23:[address] Maxillofacial w/o Contrast Ordering Physician YOLANDE PALACIO Accession Number [id number] CPT4 Codes 07643 () Reason For Exam chronic maxillary sinusitis Report EXAMINATION: CT of the Paranasal Sinuses without Contrast. COMPARISON: 09/06/2019. REASON FOR STUDY: Chronic maxillary sinusitis. TECHNIQUE: Contiguous axial as developed 2 mm as well as orthogonal biplanar 1 mm images were obtained. FINDINGS: Left maxillary sinus is near-totally opacified with attendant hyperostosis of the sinus roman. 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 Remaining paranasal sinuses are pneumatized and show no significant mucoperiosteal thickening or fluid accumulation. Orbits are symmetric and within normal limits. Intraorbital contents appear normal. No abnormality of the temporal bones is observed. Mastoid air cells are well aerated. External and internal auditory canals and inner ears are symmetric and within normal limits. Origin ossicles appear normal. CONCLUSIONS: 1. Chronic left maxillary sinusitis. 2. Left antrectomy defect. Report Dictated on Final Dictating Physician: MD MONTANA B NELSON Signed Date and Time: 01/22/2020 1:50 pm Signed by: MD MONTANA B NELSON Transcribed Date and Time: 01/22/2020 1:51 [facility] CBC Auto DifferentialOrdered By: Doroteo Alston on 09-06-2019 Absolute Baso # 0.0 10*3/uL 0 - 0.2 10*3/uL [facility] Work Phone: Absolute Neut # 4.6 10*3/uL 1.8 - 7 10*3/uL [facility] Work Phone: Basophils/100 WBC (Bld) 0.2 % 0 - 2 % [facility] Work Phone: Eosinophils (Bld) [#/Vol] 0.0 10*3/uL 0 - 0.5 10*3/uL [employer] Work Phone: Eosinophils/100 WBC (Bld) 0.5 % Low 1 - 6 % [employer] Work Phone: Erythrocyte distribution width (RBC) [Ratio] 13.0 % 11.5 - 14.5 % [employer] Work Phone: Granulocytes/100 WBC (Bld) 62.3 % 40 - 80 % [employer] Work Phone: Hematocrit (Bld) [Volume fraction] 42.7 % 35 - 47 % [employer] Work Phone: Hemoglobin (Bld) [Mass/Vol] 13.9 g/dL 11.7 - 16 g/dL [employer] Work Phone: Interpretation and review of laboratory results Abnormal [employer] Work Phone: Lymphocytes (Bld) [#/Vol] 2.5 10*3/uL 1 - 4.3 10*3/uL [employer] Work Phone: Lymphocytes/100 WBC (Bld) 33.6 % 20 - 40 % [employer] Work Phone: MCH (RBC) [Entitic mass] 27.7 pg 26 - 34 pg [employer] Work Phone: MCHC 32.5 % 32 - 36 % [employer] Work Phone: MCV (RBC) [Entitic vol] 85.2 fL 79 - 98 fL [employer] Work Phone: Monocytes (Bld) [#/Vol] 0.3 10*3/uL 0 - 0.8 10*3/uL [employer] Work Phone: Monocytes/100 WBC (Bld) 3.4 % 2 - 10 % [employer] Work Phone: Platelet mean volume (Bld) [Entitic vol] 8.1 fL 7.4 - 10.4 fL [employer] Work Phone: Platelets (Bld) [#/Vol] 303 10*3/uL 140 - 440 10*3/uL [employer] Work Phone: RBC (Bld) [#/Vol] 5.01 10*6/uL 3.8 - 5.2 10*6/uL [employer] Work Phone: WBC (Bld) [#/Vol] 7.4 10*3/uL 3.6 - 10.7 10*3/uL [employer] Work Phone: [facility] Per[facility] by [facility], [address] [place] [address] [employer] Work Phone: CR Chest PA/LATon 09-06-2019 CR Chest PA/LAT Patient Name: CRYSTAL SCHULTZ Diagnostic Radiology Exam Date/Time 09/06/2019 14:03:54 EST Exam CR Chest PA/LAT Ordering Physician MD ALSTON PHILLIP CHRISTOPHER Accession Number [id number] CPT4 Codes 84159 () Reason For Exam chest pain Report CHEST X-RAY PA/LATERAL CLINICAL INDICATION: chest pain Frontal and lateral plain films of the chest were obtained. COMPARISON: None FINDINGS: The cardiac silhouette is within normal limits. No focal consolidation is seen within the lungs. No pleural effusion or pneumothorax is identified. Degenerative changes of the thoracic spine are noted. IMPRESSION: No acute cardiopulmonary disease. Report Dictated on Final Dictated: 09/06/2019 2:02 pm Dictating Physician: MD ALBERT JONATHAN R Signed Date and Time: 09/06/2019 2:02 pm Signed by: MD ALBERT JONATHAN R Transcribed Date and Time: 09/06/2019 2:02 Normal [facility] CT HEAD WO CONTRASTOrdered B y: Doroteo Alecia on 09-06-2019 Patient Name: CRYSTAL SCHULTZ ---CT--- Exam Date/Time 09/06/2019 14:04:[address] Head or Brain w/o Contrast Ordering Physician MD ALSTON PHILLIP CHRISTOPHER Accession Number [id number] CPT4 Codes 58210 () Reason For Exam Right-sided temporal headache Report CT scan head: 09/06/2019. CLINICAL INFORMATION: Right-sided headache. FINDINGS: CT scans of the head were performed at 3 mm slice thickness. No prior studies for comparison. The ventricular system and cortical sulci are within normal limits. There is no evidence of hemorrhage or edema. No areas of mass effect or infarct are seen. There is complete opacification of the left maxillary sinus and the suggestion of prior sinonasal surgery on the left. IMPRESSION: No acute process. Left maxillary sinusitis. Report Dictated on --- Final --- Dictated: 09/06/2019 2:14 pm Dictating Physician: MD PEÑALOZA RISA Signed Date and Time: 09/06/2019 2:15 pm Signed by: MD PEÑALZOA RISA Transcribed Date and Time: 09/06/2019 2:14 [facility] Work Phone: Juan, [facility] Incoming Radiology Results From [facility] - 09/06/2019 2:16 PM EST Patient Name: CRYSTAL SCHULTZ ---CT--- Exam Date/Time 09/06/2019 14:04:[address] Head or Brain w/o Contrast Ordering Physician MD ALSTON PHILLIP CHRISTOPHER Accession Number [id number] CPT4 Codes 41815 () Reason For Exam Right-sided temporal headache Report CT scan head: 09/06/2019. CLINICAL INFORMATION: Right-sided headache. FINDINGS: CT scans of the head were performed at 3 mm slice thickness. No prior studies for comparison. The ventricular system and cortical sulci are within normal limits. There is no evidence of hemorrhage or edema. No areas of mass effect or infarct are seen. There is complete opacification of the left maxillary sinus and the suggestion of prior sinonasal surgery on the left. IMPRESSION: No acute process. Left maxillary sinusitis. Report Dictated on --- Final --- Dictated: 09/06/2019 2:14 pm Dictating Physician: MD PEÑALOZA RISA Signed Date and Time: 09/06/2019 2:15 pm Signed by: MD PEÑALOZA RISA Transcribed Date and Time: 09/06/2019 2:14 [facility] Work Phone: CT Head or Brain w/o Contras ton 09-06-2019 CT Head or Brain w/o Contrast Patient Name: CRYSTAL SCHULTZ CT Exam Date/Time 09/06/2019 14:04:[address] Head or Brain w/o Contrast Ordering Physician MD ALECIA, DOROTEO STOLL Accession Number [id number] CPT4 Codes 00992 () Reason For Exam Right-sided temporal headache Report CT scan head: 09/06/2019. CLINICAL INFORMATION: Right-sided headache. FINDINGS: CT scans of the head were performed at 3 mm slice thickness. No prior studies for comparison. The ventricular system and cortical sulci are within normal limits. There is no evidence of hemorrhage or edema. No areas of mass effect or infarct are seen. There is complete opacification of the left maxillary sinus and the suggestion of prior sinonasal surgery on the left. IMPRESSION: No acute process. Left maxillary sinusitis. Report Dictated on Final Dictated: 09/06/2019 2:14 pm Dictating Physician: MD PEÑALOZA RISA Signed Date and Time: 09/06/2019 2:15 pm Signed by: MD PEÑALOZA RISA Transcribed Date and Time: 09/06/2019 2:14 Normal [facility] Comp Metabolic Panelon 09-06 Albumin [Mass/Vol] 4.0 g/dL Normal 3.5-5.0 [facility] Comment on above: Performed By: #### T ROPN, MONO1, CMP3, DDI2, HEMDF #### [address] [address] ALP [Catalytic activity/Vol] 70 U/L Normal 38-126 [facility] Comment on above: Performed By: #### T ROPN, MONO1, CMP3, DDI2, HEMDF #### [address] [address] ALT [Catalytic activity/Vol] 32 U/L Normal 13-69 [facility] Comment on above: Performed By: #### T ROPN, MONO1, CMP3, DDI2, HEMDF #### [id number] [place] [address] Anion gap [Moles/Vol] 11 Normal [facility] Comment on above: Performed By: #### T ROPN, MONO1, CMP3, DDI2, HEMDF #### [address] [place] [address] AST [Catalytic activity/Vol] 29 U/L Normal 15-46 [facility] Comment on above: Performed By: #### T ROPN, MONO1, CMP3, DDI2, HEMDF #### [address] [place] [address] Bilirubin [Mass/Vol] 0.8 mg/dL Normal 0.2-1.3 [facility] Comment on above: Performed By: #### T ROPN, MONO1, CMP3, DDI2, HEMDF #### [address] [place] [address] Calcium [Mass/Vol] 9.8 mg/dL Normal 8.4-10.4 [facility] Comment on above: Performed By: #### T ROPN, MONO1, CMP3, DDI2, HEMDF #### [address] [place] [address] Chloride [Moles/Vol] 111 mmol/L High 98-107 [facility] Comment on above: Performed By: #### T ROPN, MONO1, CMP3, DDI2, HEMDF #### [address] [place] [address] CO2 [Moles/Vol] 23 mmol/L Normal 22-30 [facility] Comment on above: Performed By: #### T ROPN, MONO1, CMP3, DDI2, HEMDF #### [address] [place] [address] Creatinine [Mass/Vol] 0.60 mg/dL Normal 0.52-1.25 [facility] Comment on above: Performed By: #### T ROPN, MONO1, CMP3, DDI2, HEMDF #### [address] [place] [address] GFR/1.73 sq M predicted among blacks MDRD (S/P/Bld) [Vol rate/Area] mL/min/{1.73_m2} Normal >60 [facility] Comment on above: Performed By: #### T ROPN, MONO1, CMP3, DDI2, HEMDF #### [address] [address] GFR/1.73 sq M predicted among non-blacks MDRD (S/P/Bld) [Vol rate/Area] mL/min/{1.73_m2} Normal >60 [facility] Comment on above: Result Comment: Sour ce- MDRD equation with creatinine calibration to IDMS(NKDEP) eGFR not recommended for drug dose adjustment Performed By: #### T ROPN, MONO1, CMP3, DDI2, HEMDF #### [address] [address] Glucose [Mass/Vol] 128 mg/dL High 70-100 [facility] Comment on above: Performed By: #### T ROPN, MONO1, CMP3, DDI2, HEMDF #### [address] [address] Potassium [Moles/Vol] 3.6 mmol/L Normal 3.5-5.1 [facility] Comment on above: Performed By: #### T ROPN, MONO1, CMP3, DDI2, HEMDF #### [address] [address] Protein [Mass/Vol] 8.0 g/dL Normal 6.3-8.2 [facility] Comment on above: Performed By: #### T ROPN, MONO1, CMP3, DDI2, HEMDF #### [address] [address] Sodium [Moles/Vol] 145 mmol/L Normal 135-145 [facility] Comment on above: Performed By: #### T ROPN, MONO1, CMP3, DDI2, HEMDF #### [address] [address] Urea nitrogen [Mass/Vol] 14 mg/dL Normal 7-20 [facility] Comment on above: Performed By: #### T ROPN, MONO1, CMP3, DDI2, HEMDF #### [facility] [address] [place] [address] Complete Urinalysison 2019 Appearance (U) Clear Normal Clear [facility] Comment on above: Performed By: #### C UA2 #### [facility] [address] [place] [address] Bilirubin,Urine Negative Normal Negative [facility] Comment on above: Performed By: #### C UA2 #### [facility] [address] [place] [address] Color (U) COLORLESS Normal Lt. Yellow [facility] Comment on above: Performed By: #### C UA2 #### [facility] [address] [place] [address] Glucose Ql (U) Normal Normal Normal (<70) [facility] Comment on above: Performed By: #### C UA2 #### [address] [place] [address] Ketone,Urine Negative Normal Negative [facility] Comment on above: Performed By: #### C UA2 #### [facility] [address] [place] [address] Leukocytes,Urine Negative Normal Negative [facility] Comment on above: Performed By: #### C UA2 #### [facility] [address] [place] [address] Nitrites,Urine Negative Normal Negative [facility] Comment on above: Performed By: #### C UA2 #### [facility] [address] [place] [address] Occult Blood,Urine Negative Normal Negative [facility] Comment on above: Performed By: #### C UA2 #### [facility] [address] [place] [address] pH (U) 5.5 Normal 5.0-8.0 [facility] Comment on above: Performed By: #### C UA2 #### [facility] [address] [place] [address] Protein (U) [Mass/Vol] Negative Normal Negative [facility] Comment on above: Performed By: #### C UA2 #### [facility] [address] [place] [address] Specific [place],Urine < 1.005 Normal 1.005-1.030 [facility] Comment on above: Performed By: #### C UA2 #### [facility] [address] [place] [address] Urobilinogen,Urine Normal Normal Normal (0-1) [facility] Comment on above: Performed By: #### C UA2 #### [facility] [address] [place] [address] Comprehensive Metabolic Pane lOrdered By: Doroteo Alston on 09-06-2019 Albumin [Mass/Vol] 4.0 g/dL 3.5 - 5 g/dL [facility] Work Phone: ALP [Catalytic activity/Vol] 70 U/L 38 - 126 U/L [facility] Work Phone: ALT [Catalytic activity/Vol] 32 U/L 13 - 69 U/L [facility] Work Phone: Anion gap [Moles/Vol] 11 mmol/L [facility] Work Phone: AST [Catalytic activity/Vol] 29 U/L 15 - 46 U/L [facility] Work Phone: Bilirubin [Mass/Vol] 0.8 mg/dL 0.2 - 1 .3 mg/dL [facility] Work Phone: Calcium [Mass/Vol] 9.8 mg/dL 8.4 - 10. 4 mg/dL [facility] Work Phone: Chloride [Moles/Vol] 111 mmol/L High 98 - 10 7 mmol/L [facility] Work Phone: CO2 [Moles/Vol] 23 mmol/L 22 - 30 mmol/L [facility] Work Phone: Creatinine [Mass/Vol] 0.6 mg/dL 0.52 - 1.25 mg/dL [facility] Work Phone: EGFR IF NonAfrican [place] >60.0 >60 mL/min [facility] Work Phone: Comment on above: Source- MDRD equatio n with creatinine calibration to IDMS(NKDEP) eGFR not recommended for drug dose adjustment GFR/1.73 sq M.predicted among blacks MDRD (S/P/Bld) [Vol rate/Area] mL/min/{1.73_m2} >60 mL/min [facility] Work Phone: Glucose [Mass/Vol] 128 mg/dL High 70 - 100 mg/dL [employer] Work Phone: Interpretation and review of laboratory results Abnormal [facility] Work Phone: Potassium [Moles/Vol] 3.6 mmol/L 3.5 - 5.1 mmol/L [facility] Work Phone: Protein [Mass/Vol] 8.0 g/dL 6.3 - 8.2 g/dL [facility] Work Phone: Sodium [Moles/Vol] 145 mmol/L 135 - 145 mmol/L [facility] Work Phone: Urea nitrogen [Mass/Vol] 14 mg/dL 7 - 20 mg/dL [facility] Work Phone: Test Performed by [employer], [facility] [place] [address] [facility] Work Phone: D-Dimer, Innovanceon 020 D-Dimer, Innov[employer] 0.39 mg/L Normal <0.19-0.50 [facility] Comment on above: Result Comment: Inno waller D-Dimer values of <0.50 mg/L FEU can be used in combination with a pre-test probability model (e.g. Well's) to exclude pulmonary embolism (PE) disease, as well as an aid in the diagnosis of deep vein thrombosis (DVT). Performed By: #### T ROPN, MONO1, CMP3, DDI2, HEMDF #### [employer] [address] [place] [address] D-Dimer, QuantitativeOrdered By: Doroteo Alston on 09-06-2019 D-Dimer, Quant 0.39 mg/L <0.19 - 0.50 [facility] Work Phone: Comment on above: [employer] D-Dimer va lues of <0.50 mg/L FEU can be used in combination with a pre-test probability model (e.g. Well's) to exclude pulmonary embolism (PE) disease, as well as an aid in the diagnosis of deep vein thrombosis (DVT). Hemogram w/ Autodiffon 09-06 Abs Baso Cnt 0.0 10*3/uL Normal 0.0-0.2 [facility] Comment on above: Performed By: #### T ROPN, MONO1, CMP3, DDI2, HEMDF #### [address] [address] Abs Neutrophile Cnt 4.6 10*3/uL Normal 1.8-7.0 [facility] Comment on above: Performed By: #### T ROPN, MONO1, CMP3, DDI2, HEMDF #### [address] [address] Basophils/100 WBC (Bld) 0.2 % Normal 0.0-2.0 [facility] Comment on above: Performed By: #### T ROPN, MONO1, CMP3, DDI2, HEMDF #### [address] [address] Eosinophils (Bld) [#/Vol] 0.0 10*3/uL Normal 0.0-0.5 [facility] Comment on above: Performed By: #### T ROPN, MONO1, CMP3, DDI2, HEMDF #### [address] [address] Eosinophils/100 WBC (Bld) 0.5 % Low 1.0-6.0 [facility] Comment on above: Performed By: #### T ROPN, MONO1, CMP3, DDI2, HEMDF #### [address] [address] Erythrocyte distribution width (RBC) [Ratio] 13.0 % Normal 11.5-14.5 [facility] Comment on above: Performed By: #### T ROPN, MONO1, CMP3, DDI2, HEMDF #### [address] [address] Granulocytes/100 WBC (Bld) 62.3 % Normal 40.0-80.0 [facility] Comment on above: Performed By: #### T ROPN, MONO1, CMP3, DDI2, HEMDF #### [address] [address] Hematocrit (Bld) [Volume fraction] 42.7 % Normal 35.0-47.0 [facility] Comment on above: Performed By: #### T ROPN, MONO1, CMP3, DDI2, HEMDF #### [address] [address] Hemoglobin (Bld) [Mass/Vol] 13.9 g/dL Normal 11.7-16.0 [facility] Comment on above: Performed By: #### T ROPN, MONO1, CMP3, DDI2, HEMDF #### [address] [address] Lymphocytes (Bld) [#/Vol] 2.5 10*3/uL Normal 1.0-4.3 [facility] Comment on above: Performed By: #### T ROPN, MONO1, CMP3, DDI2, HEMDF #### [address] [address] Lymphocytes/100 WBC (Bld) 33.6 % Normal 20.0-40.0 [facility] Comment on above: Performed By: #### T ROPN, MONO1, CMP3, DDI2, HEMDF #### [address] [address] MCH (RBC) [Entitic mass] 27.7 pg Normal 26.0-34.0 [facility] Comment on above: Performed By: #### T ROPN, MONO1, CMP3, DDI2, HEMDF #### [address] [address] MCHC (RBC) [Mass/Vol] 32.5 % Normal 32.0-36.0 [facility] Comment on above: Performed By: #### T ROPN, MONO1, CMP3, DDI2, HEMDF #### [address] [address] MCV (RBC) [Entitic vol] 85.2 fL Normal 79.0-98.0 [facility] Comment on above: Performed By: #### T ROPN, MONO1, CMP3, DDI2, HEMDF #### [address] [address] Monocytes (Bld) [#/Vol] 0.3 10*3/uL Normal 0.0-0.8 [facility] Comment on above: Performed By: #### T ROPN, MONO1, CMP3, DDI2, HEMDF #### [address] [address] Monocytes/100 WBC (Bld) 3.4 % Normal 2.0-10.0 [facility] Comment on above: Performed By: #### T ROPN, MONO1, CMP3, DDI2, HEMDF #### [address] [address] Platelet mean volume (Bld) [Entitic vol] 8.1 fL Normal 7.4-10.4 [facility] Comment on above: Performed By: #### T ROPN, MONO1, CMP3, DDI2, HEMDF #### [address] [place] [address] Platelets (Bld) [#/Vol] 303 10*3/uL Normal 140-440 [facility] Comment on above: Performed By: #### T ROPN, MONO1, CMP3, DDI2, HEMDF #### [address] [place] [address] RBC (Bld) [#/Vol] 5.01 10*6/uL Normal 3.80-5.20 [facility] Comment on above: Performed By: #### T ROPN, MONO1, CMP3, DDI2, HEMDF #### [address] [place] [address] WBC (Bld) [#/Vol] 7.4 10*3/uL Normal 3.6-10.7 [facility] Comment on above: Performed By: #### T ROPN, MONO1, CMP3, DDI2, HEMDF #### [address] [place] [address] MONO Teston 09-06-2019 MONO Test Negative Normal Negative [facility] [employer] [facility] Comment on above: Performed By: #### T ROPN, MONO1, CMP3, DDI2, HEMDF #### [facility] [employer] [address] [place] [address] Mononucleosis ScreenOrdered By: Doroteo Alston on 09-06-2019 [place] Test Negative Negative NA [employer] Work Phone: No Panel InformationOrdered By: Doroteo Alston on 09-06-2019 Test Performed by [facility], [address] [place] [address] [employer] Work Phone: Rapid Flu A AND B, RNAon Rapid Influenza A Not Detected Normal Not Detected [facility] Comment on above: Performed By: #### R PFAB #### [facility] [employer] [address] [place] [address] Rapid Influenza B Not Detected Normal Not Detected [facility] Comment on above: Result Comment: Meth od: Isothermal nucleic acid amplification technology. Performed By: #### R PFAB #### [facility] [address] [place] [address] Rapid Influenza A/B Antigens Ordered By: Doroteo Alston on 09-06-2019 INFLUENZA A Not detected Not Detected NA [employer] Work Phone: INFLUENZA B Not detected Not Detected NA [employer] Work Phone: Comment on above: Method: Isothermal n ucleic acid amplification technology. Test Performed by [facility], [address] [place] [address] [employer] Work Phone: TroponinOrdered By: Doroteo Alston on 09-06-2019 Troponin I.cardiac [Mass/Vol] 0.012 ng/mL 0 - 0.034 ng/mL [employer] Work Phone: Comment on above: . Test Performed by [facility], [address] [place] [address] [employer] Work Phone: Troponin Ion 09-06-2019 Troponin I.cardiac [Mass/Vol] 0.012 ng/mL Normal 0.000-0.034 [facility] [employer] Comment on above: Result Comment: . Performed By: #### T ROPN, MONO1, CMP3, DDI2, HEMDF #### [facility] [address] [place] [address] UrinalysisOrdered By: Coy Alston on 09-06-2019 Appearance (U) Clear Clear NA [employer] Work Phone: Bilirubin Urine Negative Negative mg/dL [employer] Work Phone: Color (U) COLORLESS Lt. Yellow NA [employer] Work Phone: Glucose, Ur Normal Normal (<70) mg/dL [employer] Work Phone: Ketones Ql (U) Negative Negative mg/dL [employer] Work Phone: LEUKOCYTES, UA Negative Negative Jaimee/uL [employer] Work Phone: Nitrite, Urine Negative Negative NA [employer] Work Phone: Occult Blood,Urine Negative Negative mg/dL [employer] Work Phone: pH (U) 5.5 [pH] [facility] Work Phone: Specific [place], Urine <1.005 [facility] Work Phone: Total Protein, Urine Negative Negativ e mg/dL [employer] Work Phone: Urobilinogen, Urine Normal Normal ( 0-1) mg/dL [employer] Work Phone: Test Performed by [employer], [address] [place] [address] [employer] Work Phone: XR CHEST STANDARD (2 VW)Orde red By: Doroteo Alston on 09-06-2019 Patient Name: CRYSTAL SCHULTZ ---Diagnostic Radiology--- Exam Date/Time 09/06/2019 14:03:54 EST Exam CR Chest PA/LAT Ordering Physician MD ALECIA, DOROTEO STOLL Accession Number [id number] CPT4 Codes 55420 () Reason For Exam chest pain Report CHEST X-RAY PA/LATERAL CLINICAL INDICATION: chest pain Frontal and lateral plain films of the chest were obtained. COMPARISON: None FINDINGS: The cardiac silhouette is within normal limits. No focal consolidation is seen within the lungs. No pleural effusion or pneumothorax is identified. Degenerative changes of the thoracic spine are noted. IMPRESSION: No acute cardiopulmonary disease. Report Dictated on --- Final --- Dictated: 09/06/2019 2:02 pm Dictating Physician: MD ALBERT JONATHAN R Signed Date and Time: 09/06/2019 2:02 pm Signed by: MD ALBERT JONATHAN R Transcribed Date and Time: 09/06/2019 2:02 [facility] Work Phone: [facility], [facility] Results From [facility] - 09/06/2019 2:04 PM EST Patient Name: CRYSTAL SCHULTZ ---Diagnostic Radiology--- Exam Date/Time 09/06/2019 14:03:54 EST Exam CR Chest PA/LAT Ordering Physician MD ALSTON PHILLIP CHRISTOPHER Accession Number [id number] CPT4 Codes 59837 () Reason For Exam chest pain Report CHEST X-RAY PA/LATERAL CLINICAL INDICATION: chest pain Frontal and lateral plain films of the chest were obtained. COMPARISON: None FINDINGS: The cardiac silhouette is within normal limits. No focal consolidation is seen within the lungs. No pleural effusion or pneumothorax is identified. Degenerative changes of the thoracic spine are noted. IMPRESSION: No acute cardiopulmonary disease. Report Dictated on --- Final --- Dictated: 09/06/2019 2:02 pm Dictating Physician: MD ALBERT JONATHAN R Signed Date and Time: 09/06/2019 2:02 pm Signed by: MD ALBERT JONATHAN R Transcribed Date and Time: 09/06/2019 2:02 [facility] Work Phone: MG Breast Tomosynthesis Scr Blon 07-10-2019 MG Breast Tomosynthesis Scr Bl Patient Name: CRYSTAL SCHULTZ Mammography Exam Date/Time 07/10/2019 11:52:35 EST Exam MG Breast Tomosynthesis BI Scr Ordering Physician Silvana PAVON NANCY Accession Number [id number] CPT4 Codes 52544 (MG Breast Tomosynthesis Scr Bl), 60058 (MG MAMMO 2D SCREENING) Reason For Exam screening Report TIME SINCE LAST MAMMOGRAM: Last mammogram was performed 1 year and 1 month ago. REASON FOR EXAM: screening, asymptomatic. PROCEDURE: MG BREAST TOMOSYNTHESIS BL SCR: JULY 10, 2019 - 2D/3D Procedure 3D Bilateral CC and MLO view(s) were taken. 2D Bilateral CC and MLO view(s) were taken. Prior study comparison: May 26, 2018, bilateral MG breast tomosynthesis bl scr performed at [facility]. April 12, 2017, bilateral MG breast tomosynthesis bl scr performed at [facility]. TISSUE DENSITY: There are scattered fibroglandular densities. . FINDINGS: No suspicious masses, architectural distortions or suspiciously clustered microcalcifications are identified. There is no evidence of skin thickening or nipple retraction. There are no significant changes when compared with prior studies. Markings on images: BB's = Nipples; skin lesions Open coquille = Palpable Line = Scar 2D digital mammography and tomosynthesis imaging were performed and reviewed with CAD. ASSESSMENT: Category 1 Negative No mammographic evidence of malignancy. RECOMMENDATION: Routine screening mammogram of both breasts in 1 year. . Report Dictated on Cancer Risk Assessment: This risk assessment is based on patient provided information collected in a risk survey taken at the time of this examination. Lifetime breast cancer risk: 36.9% - If greater than or equal to 20%, consider annual mammogram and annual screening Breast MRI or follow up in high risk clinic. Is the patient at elevated risk based on the HBOC criteria? Yes (Hereditary Breast and Ovarian Cancer) - If yes, consider genetic counseling and testing with high risk follow up. HNPCC mutation risk (Estrella Syndrome): 1% - if greater than or equal to 5%, consider genetic counseling, testing and screening colonoscopy. Final Signed Date and Time: 07/13/2019 9:29 am Signed by: MD GORDON LAUREN B [facility] Otheron 02-19-2005 CONVERTED ELECTRONIC SIGNATURE ARACELI CARLOS M.D., PATHOLOGIST (Electronic signature on file) Final Signed Out: 02/19/2005 16:36 [facility] CONVERTED FINAL DIAGNOSIS ENDOMETRIUM, BIOPSY - SCANT AND DISRUPTED FRAGMENTS OF PROLIFERATIVE ENDOMETRIUM. COMMENT - The endometrial sampling is very scanty and may not be fully maintenance representative. Clinical correlation is needed. [facility] CONVERTED ORDERING PROVIDER Ordering Provider: VASU MASSEY [facility] Vital Signs Date Time Vital Sign Value Performing Clinician Dario kinney 12-24-2024 15:01-0400 Body height 154.94 cm Herlinda Zapata RETINAL SURGEON-C Work Phone: [facility] 12-24-2024 15:01-0400 Body mass index (BMI) [Ratio] 36.4 kg/m2 Herlinda Zapata RETINAL SURGEON-C Work Phone: [facility] 12-24-2024 15:01-0400 Body temperature 97.9 [degF] Herlinda Zapata RETINAL SURGEON-C Work Phone: [facility] 12-24-2024 15:01-0400 Body weight 87.54 kg Herlinda Zapata RETINAL SURGEON-C Work Phone: [facility] 12-24-2024 15:01-0400 Diastolic blood pressure 80 mm[Hg] Herlinda Zapata RETINAL SURGEON-C Work Phone: [facility] 12-24-2024 15:01-0400 Heart rate 106 /min Herlinda Zapata RETINAL SURGEON-C Work Phone: [facility] 12-24-2024 15:01-0400 Respiratory rate 18 /min Herlinda Zapata RETINAL SURGEON-C Work Phone: [facility] 12-24-2024 15:01-0400 SaO2% (BldA) [Mass fraction] 96 % Herlinda Zapata RETINAL SURGEON-C Work Phone: [facility] 12-24-2024 15:01-0400 Systolic blood pressure 140 mm[Hg] Herlinda Zapata RETINAL SURGEON-C Work Phone: [facility] 07-13-2024 11:21-0500 Body height 152.4 cm Taylor Pavon MD Work Phone: [facility] 07-13-2024 11:21-0500 Body mass index (BMI) [Ratio] 36.52 kg/m2 Taylor Pavon MD Work Phone: [facility] 07-13-2024 11:21-0500 Body weight 84.82 kg Taylor Pavon MD Work Phone: [facility] 04-23-2023 13:11-0400 Body height 152.4 cm Noni Navya PA Work Phone: [facility] 04-23-2023 13:11-0400 Body mass index (BMI) [Ratio] 36.33 kg/m2 Noni Trinity PA Work Phone: [facility] 04-23-2023 13:11-0400 Body weight 84.37 kg Noni Trinity PA Work Phone: [facility] 01-16-2023 15:33-0400 Body height 154.94 cm [facility] 01-16-2023 15:33-0400 Body mass index (BMI) [Ratio] 35.9 kg/m2 [facility] 01-16-2023 15:33-0400 Body temperature 97.3 [degF] [facility] 01-16-2023 15:33-0400 Body weight 86.18 kg [facility] 01-16-2023 15:33-0400 Diastolic blood pressure 80 mm[Hg] [facility] 01-16-2023 15:33-0400 Heart rate 115 /min [facility] 01-16-2023 15:33-0400 Respiratory rate 18 /min [facility] 01-16-2023 15:33-0400 SaO2% (BldA) [Mass fraction] 97 % [facility] 01-16-2023 15:33-0400 Systolic blood pressure 170 mm[Hg] [facility] 01-03-2023 19:48-0400 Body mass index (BMI) [Ratio] 36.1 kg/m2 [facility] 01-03-2023 19:48-0400 Body temperature 98.2 [degF] [facility] 01-03-2023 19:48-0400 Body weight 86.63 kg [facility] 01-03-2023 19:48-0400 Diastolic blood pressure 80 mm[Hg] [facility] 01-03-2023 19:48-0400 Heart rate 114 /min [facility] 01-03-2023 19:48-0400 Respiratory rate 18 /min [facility] 01-03-2023 19:48-0400 SaO2% (BldA) [Mass fraction] 98 % [facility] 01-03-2023 19:48-0400 Systolic blood pressure 102 mm[Hg] [facility] 11-13-2022 14:41-0400 Diastolic blood pressure 95 mm[Hg] Rigo Young MD Work Phone: [facility] 11-13-2022 14:41-0400 Heart rate 98 /min Rigo Young MD Work Phone: [facility] 11-13-2022 14:41-0400 Systolic blood pressure 140 mm[Hg] Rigo Young MD Work Phone: [facility] 11-13-2022 14:10-0400 Body height 153.7 cm Rigo Young MD Work Phone: [facility] 11-13-2022 14:10-0400 Body mass index (BMI) [Ratio] 36.8 kg/m2 Rigo Young MD Work Phone: [facility] 11-13-2022 14:10-0400 Body weight 86.91 kg Rigo Young MD Work Phone: [facility] 09-06-2019 15:13-0500 Diastolic blood pressure 88 mm[Hg] Doroteo Alston MD Work Phone: [employer] Work Phone: 09-06-2019 15:13-0500 Heart rate 80 /min Doroteo Alston MD Work Phone: [facility] Work Phone: 09-06-2019 15:13-0500 Respiratory rate 18 /min Doroteo Alston MD Work Phone: [facility] Work Phone: 09-06-2019 15:13-0500 SaO2% (BldA) [Mass fraction] 100 % Doroteo Alston MD Work Phone: [facility] Work Phone: 09-06-2019 15:13-0500 Systolic blood pressure 134 mm[Hg] Doroteo Alston MD Work Phone: [facility] Work Phone: 09-06-2019 12:37-0500 Body height 152.4 cm Doroteo Alston MD Work Phone: [facility] Work Phone: 09-06-2019 12:37-0500 Body mass index (BMI) [Ratio] 35.94 kg/m2 Doroteo Alston MD Work Phone: [facility] Work Phone: 09-06-2019 12:37-0500 Body temperature 98.2 [degF] Doroteo Alston MD Work Phone: [facility] Work Phone: 09-06-2019 12:37-0500 Body weight 83.46 kg Doroteo Alston MD Work Phone: [employer] Work Phone: Encounters Encounter Date Encounter Type Care Provider Facility Start: 06-04-2025 End: 06-04-2025 ambulatory JOSEPH OTT Facility:[id number] Start: 04-23-2025 End: 04-23-2025 ambulatory JOSEPH OTT Facility:[id number] Start: 04-19-2025 End: 04-19-2025 Telephone encounter Joseph Ott MD Work Phone: Urology Start: 04-15-2025 End: 04-15-2025 Orders Only Joseph Ott MD Work Phone: [facility] Comment on above: Ureteral stone (Prim bill Dx) Start: 04-14-2025 End: 04-15-2025 ambulatory RELL HUDDLESTON Facility:[id number] Start: 04-14-2025 End: 04-14-2025 Emergency department patient visit DODIE REY Facility:[facility] Start: 12-25-2024 End: 12-25-2024 Patient encounter procedure Herlinda Zapata RETINAL SURGEON-C -Laboratory Specimen Work Phone: Start: 12-25-2024 End: 12-25-2024 ambulatory Herlinda Zapata RETINAL SURGEON-C Work Phone: [facility] Work Phone: Start: 12-24-2024 ambulatory HERLINDA ZAPATA [facility] ity:[facility] Start: 07-13-2024 End: 07-13-2024 Subsequent hospital visit by physician Taylor Pavon MD Work Phone: [facility] Comment on above: Encounter for screen ing mammogram for malignant neoplasm of breast Start: 07-13-2024 End: 07-13-2024 ambulatory TAYLOR PAVON [facility] Start: 06-18-2024 End: 09-17-2024 Transcribe Orders Taylor Pavon MD Work Phone: [facility] Central Scheduling Comment on above: Encounter for screen ing mammogram for malignant neoplasm of breast (Primary Dx) Start: 04-23-2023 End: 04-23-2023 Subsequent hospital visit by physician Noni RUEDA Work Phone: [facility] Comment on above: Encounter for screen ing mammogram for malignant neoplasm of breast Start: 04-10-2023 Transcribe Orders Noni RUEDA Work Phone: [facility] Clinical Communication Comment on above: Encounter for screen ing mammogram for malignant neoplasm of breast (Primary Dx) Start: 01-16-2023 End: 01-16-2023 ambulatory [facility] Work Phone: Start: 01-16-2023 End: 01-16-2023 Patient encounter procedure [facility]-Laboratory, Specimen Start: 11-13-2022 End: 11-13-2022 Initial preventive medicine new patient 40-64yrs Rigo Young MD Work Phone: [facility] Comment on above: Annual physical exam (Primary Dx); Primary hypertension; Psoriasis; Migraine without aura and without status migrainosus, not intractable; Type 2 diabetes mellitus without complication, without long-term current use of insulin ([facility] ([facility]); Screening for lipid disorders Annual physical exam (Primary Dx); Primary hypertension; Psoriasis; Migraine without aura and without status migrainosus, not intractable; Type 2 diabetes mellitus without complication, without long-term current use of insulin ([facility]) ([facility]); Screening for lipid disorders; Mixed hyperlipidemia Start: 11-13-2022 End: 11-13-2022 Patient encounter procedure Rigo Young MD Work Phone: [facility] Start: 05-19-2020 End: 05-19-2020 Subsequent hospital visit by physician Amber [place] [facility] Comment on above: Arrived Start: 01-20-2020 End: 01-20-2020 Subsequent hospital visit by physician Yolande Palacio Work Phone: [facility] Comment on above: Arrived Start: 09-06-2019 End: 09-06-2019 Emergency department patient visit Doroteo Alston MD Work Phone: [facility] Comment on above: Acute recurrent maxi llary sinusitis (Primary Dx); Malaise and fatigue; Chest pain, unspecified type Start: 07-10-2019 End: 07-10-2019 Subsequent hospital visit by physician Taylor Pavon Work Phone: [facility] Comment on above: Arrived Start: 02-15-2005 End: 02-15-2005 Patient encounter procedure Vasu Amaya) Leana Work Phone: [facility] Start: 02-15-2005 Results Only Vasu Amaya) Leana Work Phone: [facility] Procedures Date Procedure Procedure Detail Performing Clinician Start: 07-13-2024 End: 07-13-2024 Screening digital breast tomosynthesis bi Taylor Pavon MD Work Phone: Start: 04-23-2023 Mammography Noni Alem RUEDA Work Phone: Start: 11-13-2022 Comprehensive metabo lic panel Rigo Young MD Work Phone: Start: 11-13-2022 Lipid panel Rigo Espinoza MD Work Phone: Start: 11-13-2022 TEST AUTHORIZATION (QUEST) Rigo Young MD Work Phone: Start: 11-13-2022 Adult depression scr eening assessment Noni RUEDA Work Phone: Start: 11-13-2022 Lipid 1996 panel - S radah or Plasma Rigo Young MD Work Phone: Start: 05-19-2020 Mammography Rigo schmid MD Work Phone: Start: 09-06-2019 Follow-up visit Start: 09-06-2019 Ct head/brain w/o co ntrast material Doroteo Alston MD Work Phone: Start: 09-06-2019 Radiologic exam ches t 2 views Doroteo Alston MD Work Phone: Start: 09-06-2019 Comprehensive metabo lic panel Doroteo Alston MD Work Phone: Start: 09-06-2019 Heterophile antibodi es screen Doorteo Alston MD Work Phone: Start: 09-06-2019 Iaadiadoo influenza Phi pepe Alston MD Work Phone: Start: 09-06-2019 Urnls dip stick/tabl et rgnt auto w/o microscopy Doroteo Alston MD Work Phone: Start: 09-06-2019 Ecg routine ecg w/le ast 12 lds w/i&r Doroteo Alston MD Work Phone: Start: 02-15-2005 CONVERTED SURGICAL PATHOLOGY Vasu Amaya) Leana Work Phone: Urine culture Plan of Treatment Date Care Activity Detail Author Start: 02-12-2044 RSV Immunization for Adults (1 - 1-dose 75+ series) RSV Immunization for Adults (1 - 1-dose 75+ series) [facility] Start: 2029 RSV Immunization age d 60 or older (1 - 1-dose 60+ series) RSV Immunization aged 60 or older (1 - 1-dose 60+ series) [facility] Start: 10-09-2028 DTaP/Tdap/Td vaccine (3 - Td) DTaP/Tdap/Td vaccine (3 - Td) [place] Start: 10-09-2028 DTaP/Tdap/Td Vaccine s (2 - Tdap) DTaP/Tdap/Td Vaccines (2 - Tdap) [facility] Start: 10-09-2028 DTaP/Tdap/Td Vaccine s (3 - Td or Tdap) DTaP/Tdap/Td Vaccines (3 - Td or Tdap) [facility] Start: 10-09-2028 Urine microalbumin profile DTaP,Tdap,Td Vaccine (4 - Td or Tdap) [facility] Start: 04-14-2028 Diabetes Screening Diabetes Screenin g [facility] Start: 11-14-2027 Lipid panel Lipid Screening [facility] Start: 07-13-2025 Screening for malign ant neoplasm of breast [facility] Start: 04-15-2025 End: 04-15-2025 Cysto w/insert ureteral stent CYSTOSCOPY, INSERTION STENT URETERAL J Ureteral calculi 04/15/2025 10:24 AM EDT MR OR Start: 04-15-2025 End: 04-15-2025 Cysto w/ureteroscopy w/lithotripsy LASER LITHOTRIPSY STONES URETER ~HOLMIUM Ureteral calculi 04/15/2025 10:24 AM EDT MR OR Start: 04-15-2025 End: 04-15-2025 Cysto w/ureteroscopy w/rmvl/manj stones CYSTOSCOPY WITH URETEROSCOPY WITH REMOVAL OR MANIPULATION OF URETERAL CALCULI Ureteral calculi 04/15/2025 10:24 AM EDT MR OR Start: 04-05-2025 Influenza vaccination Influenza Vacc ine (#1) [facility] Start: 04-23-2024 Screening for malign ant neoplasm of breast Mammogram [facility] Start: 04-05-2024 COVID-19 Vaccine ( season) COVID-19 Vaccine ( season) [facility] Start: 04-05-2024 Influenza vaccination Influenza Vacc ine (#1) [facility] Start: 11-14-2023 Depression Screening Depression Scre ening [facility] Start: 11-14-2023 Diabetes: Estimated Glomerular Filtration Rate for Kidney Health Diabetes: Estimated Glomerular Filtration Rate for Kidney Health [facility] Start: 11-14-2023 Diabetic foot examination Diabetes: Foot Exam [facility] Start: 11-14-2023 Hemoglobin A1c measurement Diabetes: Hemoglobin A1C [facility] Start: 11-14-2023 Lipid panel Lipid Panel [facility] Start: 05-21-2023 End: 05-21-2023 Patient encounter procedure 05/21/2023 Office Visit Family Medicine Rigo Young MD [address] [place] [address], [place] [address] [facility] Start: 04-05-2023 COVID-19 Vaccine ( season) COVID-19 Vaccine ( season) [facility] Start: 04-05-2023 Influenza vaccination [facility] Start: 02-12-2023 Hemoglobin A1c measurement Diabetes: Hemoglobin A1C [facility] Start: 11-20-2022 End: 11-20-2022 Clinical Support 11/20/2022 Clinical Support Family Medicine [facility] Start: 11-14-2022 End: 11-15-2023 Cholesterol in LDL [Mass/volume] in Serum or Plasma LDL cholesterol, direct Lab Routine Mixed hyperlipidemia Expected: 11/14/2022 (Approximate), Expires: 11/15/2023 [facility] Comment on above: Expected: 11/14/2022 (Approximate), Expires: 11/15/2023 Start: 11-13-2022 End: 11-14-2023 CBC panel - Blood by Automated count CBC Lab Routine Annual physical exam Expected: 11/13/2022 (Approximate), Expires: 11/14/2023 [facility] [employer] Comment on above: Expected: 11/13/2022 (Approximate), Expires: 11/14/2023 Start: 11-13-2022 End: 11-14-2023 Comprehensive metabolic 1998 panel - Serum or Plasma Comprehensive metabolic panel Lab Routine Primary hypertension Type 2 diabetes mellitus without complication, without long-term current use of insulin (CMS/HCC) (HCC) Expected: 11/13/2022 (Approximate), Expires: 11/14/2023 [facility] [employer] [facility] Work Phone: Comment on above: Expected: 11/13/2022 (Approximate), Expires: 11/14/2023 Start: 11-13-2022 End: 11-14-2023 Hemoglobin A1c/Hemoglobin.total in Blood Hemoglobin A1c Lab Routine Type 2 diabetes mellitus without complication, without long-term current use of insulin (CMS/HCC) (HCC) Expected: 11/13/2022 (Approximate), Expires: 11/14/2023 [facility] [employer] Comment on above: Expected: 11/13/2022 (Approximate), Expires: 11/14/2023 Start: 11-13-2022 End: 11-14-2023 Lipid 1996 panel - Serum or Plasma Lipid panel Lab Routine Screening for lipid disorders Expected: 11/13/2022 (Approximate), Expires: 11/14/2023 [facility] [employer] Comment on above: Expected: 11/13/2022 (Approximate), Expires: 11/14/2023 Start: 11-13-2022 End: 11-14-2023 Microalbumin/Creatinine panel in random Urine Microalbumin / creatinine urine ratio Lab Routine Type 2 diabetes mellitus without complication, without long-term current use of insulin (CMS/HCC) (HCC) Expected: 11/13/2022 (Approximate), Expires: 11/14/2023 [facility] [employer] Comment on above: Expected: 11/13/2022 (Approximate), Expires: 11/14/2023 Start: 07-07-2022 Screening for malign ant neoplasm of colon [facility] Start: 07-10-2021 Breast cancer screen Breast cancer s jennifer [facility] Work Phone: Start: 07-10-2021 Screening for malign ant neoplasm of breast Breast cancer screen [place], [place] Start: 05-19-2021 Screening for malign ant neoplasm of breast Mammogram [facility] Start: 01-05-2021 COVID-19 Vaccine (2 - Booster for Moderna series) COVID-19 Vaccine (2 - Booster for Moderna series) [facility] Start: 12-08-2020 COVID-19 Vaccine (2 - Moderna series) COVID-19 Vaccine (2 - Moderna series) [facility] Start: 09-06-2020 Creatinine measurement Creatinine mo nitoring [place], [place] Start: 09-06-2020 Potassium monitoring Potassium monit oring [place] Start: 07-23-2020 DTaP/Tdap/Td vaccine (2 - Td) DTaP/Tdap/Td vaccine (2 - Td) [place] Start: 05-26-2020 Breast cancer screen Breast cancer s creen [place], [place] Start: 04-05-2020 Influenza vaccination [place] Start: 04-05-2019 Influenza vaccination Flu vaccine (# 1) [place], [place] Start: 2019 Colon cancer screen colonoscopy Colon cancer screen colonoscopy [place] Start: 2019 Pneumococcal Vaccine : 50+ (1 of 1 - PCV) Pneumococcal Vaccine: 50+ (1 of 1 - PCV) [facility] Start: 2019 Screening for malign ant neoplasm of colon Colon cancer screen colonoscopy [place], [place] Start: 2019 Shingles Vaccine (1 of 2) Shingles Vaccine (1 of 2) [place] Start: 2019 Shingrix Vaccine (1 of 2) Shingrix Vaccine (1 of 2) [facility] Start: 2019 Zoster Vaccines (1 of 2) Zoster Vacc merlin (1 of 2) [facility] Start: 2014 Screening for malign ant neoplasm of colon [facility] Start: 2009 Diabetes screen Diabetes screen [facility] Work Phone: Start: 2009 Lipid panel Lipid screen [place], [place] Start: 2009 Lipid screen Lipid screen [facility] [place], [place] Start: 1999 Screening for malign ant neoplasm of cervix [facility] Start: 1990 Cervical cancer screen Cervical canc er screen [place], [place] Start: 1990 Screening for malign ant neoplasm of cervix [facility] Start: 02-12-1988 Hepatitis B Vaccine (1 of 3 - 19+ 3-dose series) Hepatitis B Vaccine (1 of 3 - 19+ 3-dose series) [facility] Start: 02-12-1988 Hepatitis B Vaccines (1 of 3 - 19+ 3-dose series) Hepatitis B Vaccines (1 of 3 - 19+ 3-dose series) [facility] Start: 02-12-1988 Pneumococcal Vaccine : 50+ Years (1 of 2 - PCV) Pneumococcal Vaccine: 50+ Years (1 of 2 - PCV) [facility] Start: 02-12-1988 Urine screening for protein Diabetes: Urine Protein Screening [facility] Start: 1987 Anxiety Screening Anxiety Screening [facility] Start: 1987 Depression Screening Depression Scre [facility] Start: 1987 Diabetes: Urine Albumin-Creatinine Ratio for Kidney Health Diabetes: Urine Albumin-Creatinine Ratio for Kidney Health [facility] Start: 1987 Hepatitis C screening Hepatitis C Sc reening [facility] Start: 1987 HIV screening HIV Screening [facility] Start: 02-12-1984 HIV screen HIV screen [place] Start: 02-12-1984 HIV screening HIV screen Sush[place], [place] Start: 1979 Glaucoma screening Diabetes: R etinopathy Screening [facility] Start: 1979 Preventive dental service Diabetes: Dental Exam [facility] Start: 1975 Pneumococcal Vaccine : Pediatrics (0 to 5 Years) and At-Risk Patients (6 to 64 Years) (1 - PCV) Pneumococcal Vaccine: Pediatrics (0 to 5 Years) and At-Risk Patients (6 to 64 Years) (1 - PCV) [facility] Start: 1975 Pneumococcal Vaccine : Pediatrics (0 to 5 Years) and At-Risk Patients (6 to 64 Years) (1 of 2 - PCV) Pneumococcal Vaccine: Pediatrics (0 to 5 Years) and At-Risk Patients (6 to 64 Years) (1 of 2 - PCV) [facility] Start: 1970 MMR Vaccines (1 of 1 - Standard series) MMR Vaccines (1 of 1 - Standard series) [facility] Start: 1970 Creatinine monitoring Creatinine mon itoring [facility] Work Phone: Start: 1970 Hemoglobin A1c measurement Diabetes: Hemoglobin A1C [facility] Start: 1970 Hepatitis B Vaccines (1 of 3 - 3-dose series) Hepatitis B Vaccines (1 of 3 - 3-dose series) [facility] Start: 1970 HIV screening HIV Screening [facility] Start: 1969 Lipid panel Lipid Panel [facility] Start: 1970 Potassium monitoring Potassium monit oring [facility] Work Phone: Start: 1970 Screening for malign ant neoplasm of colon [facility] End: 01-20-2020 CT Sinus WO Contrast Limited CT Sinus WO Contrast Limited Imaging Routine Once for 1 Occurrences starting 01/20/2020 until 01/20/2020 [facility] [place] Comment on above: Once for 1 Occurrenc es starting 01/20/2020 until 01/20/2020 CT Sinus WO Contrast Limited CT Sinus WO Contrast Limited Imaging Routine 01/20/2020 12:56 PM EDT [place], [place] End: 04-23-2023 DBT Breast - bilateral screening [facility] Work Phone: Comment on above: Once for 1 Occurrenc es starting 04/23/2023 until 04/23/2023 EKG 12 Lead EKG 12 Lead ECG Routine 09/06/2019 1:14 PM EST [facility] Work Phone: End: 05-19-2020 ALICIA KIRAN DIGITAL DIAGNOSTIC BILATERAL ALICIA KIRAN DIGITAL DIAGNOSTIC BILATERAL Imaging Routine Once for 1 Occurrences starting 05/19/2020 until 05/19/2020 [employer] [place], [place] Comment on above: Once for 1 Occurrenc es starting 05/19/2020 until 05/19/2020 ALICIA KIRAN DIGITAL DIAGNOSTIC BILATERAL ALICIA KIRAN DIGITAL DIAGNOSTIC BILATERAL Imaging Routine 05/19/2020 2:03 PM EDT [employer] [place], [place] OUTSIDE PROCEDURE SCAN OUTSIDE P ROCEDURE SCAN Procedures Ordered: 04/23/2023 [facility] Comment on above: Ordered: 04/23/2023 End: 07-10-2019 Screening digital breast tomosynthesis bi Alicia Kiran Digital Screen Bilateral Imaging Routine Once for 1 Occurrences starting 07/10/2019 until 07/10/2019 [place], [place] Comment on above: Once for 1 Occurrenc es starting 07/10/2019 until 07/10/2019 Screening digital br east tomosynthesis bi Alicia Kiran Digital Screen Bilateral Imaging Routine 07/10/2019 11:25 AM EST [place], [place] End: 05-19-2020 US BREAST LIMITED LEFT US BREAST LIMITED LEFT Imaging Routine Once for 1 Occurrences starting 05/19/2020 until 05/19/2020 [place], [place] Comment on above: Once for 1 Occurrenc es starting 05/19/2020 until 05/19/2020 US BREAST LIMITED LEFT US BREAST LIMITED LEFT Imaging Routine 05/19/2020 2:22 PM EDT [place], [place] Immunizations Immunization Date Immunization Notes Care Provider [facility] 08-15-2019 influenza, injectabl e, quadrivalent, preservative free Rigo Young MD Work Phone: [facility] 08-15-2019 influenza virus vacc ine, unspecified formulation Rigo Young MD Work Phone: [facility] 10-09-2018 diphtheria, tetanus toxoids and acellular pertussis vaccine, unspecified formulation Rigo Young MD Work Phone: [facility] 10-09-2018 tetanus toxoid, redu mat diphtheria toxoid, and acellular pertussis vaccine, adsorbed Rigo Young MD Work Phone: [facility] 04-20-2016 influenza, injectabl e, quadrivalent, preservative free Rigo Young MD Work Phone: [facility] 07-23-2010 tetanus toxoid, redu mat diphtheria toxoid, and acellular pertussis vaccine, adsorbed Joseph Ott MD Work Phone: [facility] Payers Date Payer Category Payer Self-pay [id number] 2022 Blue Cross Blue Shield BLUE CARD PPO OOS [id number] 2022 Blue Cross [place] [employer]aged [employer] - O ANTHJOSE BLUE CROSS [id number] 2022 Unknown CHRISTINE Harper ANTHEM BLUE CROSS [id number] 2022-Present [id number] [id number] 2022 Unknown [id number] 2018 Private Health Insurance [employer]ET[employer] A ETNA NAP CHOICE POS II xxxxxxxxxx 2018-Present [phone] [address] [place] [address] xxxxxxxxxx [id number] 2018 Private Health Insurance [id number] 2002 Unknown MMO ZZZMMO SUPER MED PLUS [id number] 2002-2013 PPO [id number] Private Health Insurance MALIA Rodríguez [id number] Unknown [facility] [id number] Unknown [id number] Social History Date Type Detail Facility Tobacco smoking stat RUSTIS Unknown if ever smoked [place], [place] Start: 1970 Sex Assigned At Not on file [place], [place] Start: 11-13-2022 End: 04-14-2025 Tobacco smoking status NHIS Never smoked tobacco [facility] Start: 11-13-2022 End: 04-14-2025 Alcohol intake Lifetime non-drinker (finding) [facility] Start: 11-13-2022 History SDOH Financial 5 [facility] Start: 11-13-2022 History SDOH Food Worry 1 [facility] Start: 11-13-2022 History SDOH Transpo rt Med 2 [facility] Start: 11-03-2022 End: 04-23-2023 Exposure to SARS-CoV-2 (event) Not sure [facility] Start: 01-16-2023 Tobacco smoking stat RUSTIS Unknown if ever smoked [facility] Start: 1970 Sex Assigned At Female [facility] Start: 04-23-2023 End: 04-14-2025 Tobacco use and exposure Smokeless tobacco non-user [facility] Start: 04-23-2023 End: 04-15-2025 History of Social function [facility] Start: 04-23-2023 End: 04-15-2025 Tobacco use panel [facility] Start: 07-06-2012 How hard is it for y ou to pay for the very basics like food, housing, medical care, and heating Not hard at all [facility] (I/We) worried wheth er (my/our) food would run out before (I/we) got money to buy more. Never true [facility] Start: 03-05-2022 Sex Female (finding) [facility] Medical Equipment Procedure Code Equipment Code Equipment Origin al Text Equipment Identifier Dates Blood Sugar Diagnostic (Onetouch Ultra Test) strip Start: 01-07-2023 Blood Sugar Diagnostic (Onetouch Ultra Test) strip Start: 03-25-2024 Blood Sugar Diagnostic (Onetouch Ultra Test) strip Start: 07-15-2023 End: 03-25-2024 Blood Sugar Diagnostic (Onetouch Ultra Test) strip Start: 01-07-2023 End: 07-15-2023 Goals Date Patient Goal Desired Activity /State Personal health goal Functional Status Date Assessment Result Facility 04-15-2025 Are you deaf, or do you have serious difficulty hearing No 04/15/2025 2:03 PM Malaika Samuel RN No [facility] 04-15-2025 Are you blind, or do you have serious difficulty seeing, even when wearing glasses No 04/15/2025 2:03 PM Malaika Samuel RN No [facility] 04-15-2025 Do you have serious difficulty walking or climbing stairs No 04/15/2025 2:03 PM Malaika Samuel RN No [facility] 04-15-2025 Do you have difficul ty dressing or bathing No 04/15/2025 2:03 PM Malaika Samuel RN No [facility] 04-15-2025 Because of a physica l, mental, or emotional condition, do you have difficulty doing errands alone such as visiting a physician's office or shopping No 04/15/2025 2:03 PM Malaika Samuel RN No [facility] Mental Status Date Assessment Result Facility 04-15-2025 Because of a physica l, mental, or emotional condition, do you have serious difficulty concentrating, remembering, or making decisions No 04/15/2025 2:03 PM EDT Malaika Peralta RN No [facility] Clinical Notes 11-13-2022 to 06-04-2025 Telephone Encounter - Leni Sinha - 04/19/2025 2:46 PM EDTTelephone Encounter - Leni Sinha - 04/19/2025 2:46 PM EDT Note Date & Type Note Facility 06-04-2025 Note HNO ID: [id number] Author: JOSEPH OTT MD Service: ? Author Type: Physician Type: Procedures Filed: 06/04/2025 11:36 Note Text: Procedure performed: Bilateral renal ultrasound Indication for procedure: History of left hydronephrosis due to a stone in the lower end of the left ureter Description of procedure: Left kidney was scanned, kidney size was 10.0 x 4.8 cm No evidence of tumor stones or hydronephrosis Renal cortex is well-preserved On the right side renal ultrasound showing presence of a 5 mm stone in the right upper pole No evidence of tumor or cyst or hydronephrosis Impression: Right renal stone 5 mm nonobstructing Litholink ordered [facility] 04-23-2025 Note HNO ID: [id number] Author: JOSEPH OTT MD Service: ? Author Type: Physician Type: Procedures Filed: 04/23/2025 12:25 Note Text: CYSTOSCOPY/stent removal- PROCEDURE NOTE: Cysto/stent remove-[id number] Dx:[id number] Crystal Schultz is a 55 year old female who presents for a cystoscopy and stent removal Pt ID verified with patient: yes Procedure verified with patient: cystoscopy/stent remove-yes Procedure confirmed with physician and technical support technician: yes Special equipment-cystoscope and grasping forceps UNIVERSAL PROTOCOL / SAFETY CHECKLIST Procedure to be Performed: Cystoscopy and left stent removal Sign In: A Moment of CARE was completed. Appropriate PPE (Personal Protective Equipment) worn by all providers involved with the procedure. Special equipment not required. Patient/Surrogate Stated/Verified: Patient name, Date of , Relevant allergies, and The intended procedure Time Out: Relevant labs, photos, and/or imaging studies have been reviewed. Intended patient and procedure match the source document(s) (e.g. consent, HANDP, associated studies [imaging, pathology]) match the intended patient and procedure. Consent obtained and matches the intended procedure. Yes. Correct side/site has been marked and visible. is not applicable. Medications required for this procedure are verified. Fire risk assessed and is not applicable. Implants: are not applicable. Sign Out: Specimens not collected. All instruments, equipment, possible retained foreign bodies are accounted for. Yes. The post-procedure plan of care has been communicated to the patient or surrogate. A urinalysis was obtained prior cystoscopy and was negative for infection The benefits, risks, alternatives of the cystoscopy procedure and personnel were discussed with the patient. The verbal consent was obtained and the patient agrees to proceed. Procedure: The patient was placed on the procedure table in the supine/lithotomy position and prepped in the usual sterile fashion. 10 cc of 2% Lidocaine Jelly was placed per urethra as an anesthetic in the standard fashion. The cystoscope was carefully placed into the urethra. ---URETHRA: with no evidence of stricture into the bladder. ---BLADDER: The posterior, superior and lateral roman and dome of the bladder were all well visualized and the scope was retroflexed upon itself. The findings were consistent with no evidence of bladder mucosal pathology. The stent was visualized and removed from the left side At the conclusion of the procedure, the cystoscope was removed atraumatically. The patient tolerated the procedure without complications. Patient was given standard post-procedure instructions, and was directed to complete the course of oral antibiotics and increase oral fluid intake as directed. ASSESSMENT/PLAN: 1. Renal calculi - ICD9: 592.0, ICD10: N20.0 Left stent removed in toto Joseph Ott MD See progress note for plans Joseph Ott MD [facility] 04-19-2025 Telephone encount er Note When does pt need to follow up? [facility] 04-19-2025 Miscellaneous Notes Formattin g of this note might be different from the original. When does pt need to follow up? Pts called about a f/u from pt having surgery w/ Tabet on . Please assist. Thank you, Stephanie Munroe MA documented in this encounter [facility] 04-19-2025 Telephone encount er Note Pts called about a f/u from pt having surgery w/ Tabet on . Please assist. Thank you, Stephanie Munroe MA [facility] 04-15-2025 Note HNO ID: [id number] Author: GEOFFREY JADE AA Service: ? Author Type: Acds Block 1 Operator Type: Anesthesia Procedure Notes Filed: 04/15/2025 10:54 Note Text: ANESTHESIOLOGY PROCEDURE NOTE Airway General Information Procedure Start Time/Medication Administration: 04/15/2025 10:43 AM Procedure End Time: 04/15/2025 10:44 AM Patient location during procedure: OR Timeout Performed Pre-procedure: timeout performed Consent Obtained: Yes Patient identity confirmed: arm band, care hospitality team member and patient Staffing Anesthesiologist: Vasu Dias DO CAA: Geoffrey Jade AA Performed by: MELECIO Indications and Patient Condition Indications for airway management: anesthesia Preoxygenated: yes anesthesia circuit Patient position: sniffing Method: asleep Cricoid Pressure: No Manual In-Line Stabilization: No Difficult Mask: No Final Airway Details Final airway type: supraglottic airway Number of attempts at approach: 1 Final Supraglottic Airway: i-gel Size: 3Seal Adequate: yes Failed airway: no Unrecognized esophageal intubation: no Airway not difficult SIGNATURE: CHET Goldstein PATIENT NAME: Crystal Schultz DATE: April 15, 2025 TIME: 10:54 AM CSN: [id number] [facility] 04-15-2025 Note HNO ID: [id number] Author: SUSAN RUIZ, RN Service: Care Management Author Type: Registered Nurse Type: Care Mgt Progress Note Filed: 04/15/2025 07:42 Note Text: CARE MANAGEMENT PROGRESS NOTE SERVICE DATE: 04/15/2025 SERVICE TIME: 7:40 AM LOS: 0 days Chart reviewed. No need for initial assessment at this time as no needs are anticipated for dc planning. Patient functionally independent, nursing six click 24. Patient has PCP, health insurance. Patient admitted from home with for renal calculi. Urology consulted pending cystoscopy with left ureteroscopy/laser lithotripsy and stent insertion. Patient on RA, IVF/IVAB. Plan home no needs identified. CM will follow. SIGNATURE: Susan Ruiz RN PATIENT NAME: Crystal Schultz DATE: April 15, 2025 TIME: 7:40 AM [facility] 12-24-2024 Evaluation note Diagnosis Onset Date Resolution Diabetes mellitus type 2 with complications acute December 24 2:51pm Herniated intervertebral disc of lumbar spine acute December 24, 025 2:51pm Radicular pain of thoracic region acute December 24, 2024 2:51pm Hypertension chronic December 24 2:51pm [facility] Work Phone: [phone]) 892-677805-22-2025 NoteHNO ID: [id number] Author: KANE MCGINNIS RT(R) Service: ? Author Type: Technologist Type: Progress Notes Filed: 12/24/2024 16:33 Note Text: Radiology Service Progress Note PATIENT NAME: Crystal Schultz DATE OF SERVICE: December 24, 2024 TIME: 4:32 PM PATIENT IDENTITY VERIFICATION COMPLETED USING TWO (2) IDENTIFIERS: Name and Date of confirmed by patient verbally. FALL SCREENING: Has the patient had 2 falls in the last year or 1 fall with injury or currently using an Ambulatory Assistive Device (Walker, Cane, Wheelchair, Crutches, etc.)? No PATIENT GENDER DATA: Assigned female at . status: : No status: NO. PATIENT RELEVANT IMPLANT DATA REVIEWED: Not Applicable PATIENT PRESENTS WITH AN IMPLANTABLE OR ATTACHED TRAIL MAINTENANCE WORKER: No RADIOLOGY DEPARTMENT: General X-ray: Exam(s) Completed: Spine X-Ray(s): Thoracic and Lumbar AP / LAT / L5-S1 / OBL PERIPHERAL IV DATA: Not applicable SIGNED BY: RT Amish(R) December 24, 2024 4:32 [facility]04-11-2023 Evaluation + Plan note* Assessment & Plan Note - Rigo Young MD - 11/13/2022 2:52 PM EDT Associated Problem(s): Migraine without aura and without status migrainosus, not intractable Stable, continue Nurtec 75 mg and Imitrex as needed. [id number] Evaluation + Plan note* Assessment & Plan Note - Rigo Young MD - 11/13/2022 2:52 PM EDTAssociated Problem(s): Psoriasis Stable, currently on no medications [id number] Evaluation + Plan note* Assessment & Plan Note - Rigo Young MD - 11/13/2022 2:52 PM EDTAssociated Problem(s): Type 2 diabetes mellitus without complication, without long-term current useof insulin ([facility]) (HCC) Control unknown, continue metformin 500 mg twice a day and will get updated lab work. [id number] Evaluation + Plan note* Assessment & Plan Note - Rigo Young MD - 11/13/2022 2:52 PM EDTAssociated Problem(s): Primary hypertension Initially blood pressure was elevated, recheck was improved but still borderline high we will have her follow-up in 1 week for blood pressure check, continue metoprolol 50 mg daily [facility] [id number] Miscellaneous Notes* Assessment & Plan Note - Rigo Young MD - 11/13/2022 2:52 PM EDTAssociated Problem(s): Migraine without aura and without status migrainosus, not intractable Stable, continue Nurtec 75 mg and Imitrex as needed. * Assessment & Plan Note - Rigo Young MD - 11/13/2022 2:52 PM EDT Associated Problem(s): Psoriasis Stable, currently on no medications * Assessment & Plan Note - Rigo Young MD - 11/13/2022 2:52 PM EDT Associated Problem(s): Type 2 diabetes mellitus without complication, without long-term current useof insulin ([facility]) ([facility]) Control unknown, continue metformin 500 mg twice a day and will get updated lab work. * Assessment & Plan Note - Rigo Young MD - 11/13/2022 2:52 PM EDT Associated Problem(s): Primary hypertension Initially blood pressure was elevated, recheck was improved but still borderline high we will have her follow-up in 1 week for blood pressure check, continue metoprolol 50 mg daily documented in this [id number] Miscellaneous Notes* Assessment & Plan Note - Rigo Young MD - 11/13/2022 2:52 PM EDT Associated Problem(s): Migraine without aura and without status migrainosus, not intractable Stable, continue Nurtec 75 mg and Imitrex as needed. * Assessment & Plan Note - Rigo Young MD - 11/13/2022 2:52 PM EDT Associated Problem(s): Psoriasis Stable, currently on no medications * Assessment & Plan Note - Rigo Young MD - 11/13/2022 2:52 PM EDT Associated Problem(s): Type 2 diabetes mellitus without complication, without long-term current useof insulin (CMS/HCC) (HCC) Control unknown, continue metformin 500 mg twice a day and will get updated lab work. * Assessment & Plan Note - Rigo Young MD - 11/13/2022 2:52 PM EDT Associated Problem(s): Primary hypertension Initially blood pressure was elevated, recheck was improved but still borderline high we will have her follow-up in 1 week for blood pressure check, continue metoprolol 50 mg daily * Addendum Note - Rigo Young MD - 11/13/2022 2:00 PM EDTAddended by: RIGO YOUNG on: 11/14/2022 05:42 AM Modules accepted: Orders documented in this [facility]04-11-2023 History of Present illness Narrative* Samira Fritz MA - 11/13/2022 2:00 PM EDT Patient verified by last name and date of . Patient wants a fire extinguisher repairer in the room during during the visit. no Department Sales Manager na * Rigo Young MD - 11/13/2022 2:00 PM EDT Images from the original note were not included. 11/13/2022 Crystal Schultz (: 1970) is a 52 y.o. 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 Annual physical exam - CBC 2. Primary hypertension Assessment & Plan: Initially blood pressure was elevated, recheck was improved but still borderline high we will have her follow-up in 1 week for blood pressure check, continue metoprolol 50 mg daily Orders: - Comprehensive metabolic panel 3. Psoriasis Assessment & Plan: Stable, currently on no medications 4. Migraine without aura and without status migrainosus, not intractable Assessment & Plan: Stable, continue Nurtec 75 mg and Imitrex as needed. 5. Type 2 diabetes mellitus without complication, without long-term current use of insulin ([facility]) ([facility]) Assessment & Plan: Control unknown, continue metformin 500 mg twice a day and will get updated lab work. Orders: - Comprehensive metabolic panel - Hemoglobin A1c - Microalbumin / creatinine urine ratio - HP Diabetic Foot Exam 6. Screening for lipid disorders - Lipid panel Follow up in about 6 months (around 05/15/2023). SUBJECTIVE/OBJECTIVE: HPI -Crystal comes in today to establish as a new patient, she needs a annual exam and she does see COMPLIANCE CLERK for her Paps. She says she has history of diabetes and she says she does not believe had an A1c done since she was put on her metformin and she thinks that is been a couple years, she says she checks her blood sugar if she starts feeling like she is not feeling well and thinks it may be elevated so she does not have any blood sugar numbers. She also has a history of hypertension blood pressure is elevated today we will recheck that prior to discharge and she is on metoprolol for blood pressure. She has history of migraines for which she takes medication once or twice a month and she also has a history of psoriasis and currently is on no medications. She really has no complaints today, she needs fasting lab work. Review of Systems Constitutional: Negative for chills and fever. Respiratory: Negative for shortness of breath. Cardiovascular: Negative for chest pain and palpitations. Gastrointestinal: Negative for abdominal pain, blood in stool, constipation and diarrhea. Genitourinary: Negative for dyspareunia, dysuria, frequency, hematuria and urgency. Neurological: Negative for weakness and numbness. Psychiatric/Behavioral: Negative for dysphoric mood. The patient is not nervous/anxious. Vitals: 11/13/22 1410 11/13/22 1441 BP: (!) 163/96 (!) 140/95 Pulse: 96 98 Weight: 191 lb 9.6 oz (86.9 kg) Height: 5' 0.5 (1.537 m) Physical Exam Vitals and nursing note reviewed. Constitutional: General: She is not in acute distress. Appearance: Normal appearance. She is obese. HENT: Head: Normocephalic. Right Ear: Tympanic membrane, ear canal and external ear normal. Left Ear: Tympanic membrane, ear canal and external ear normal. Mouth/Throat: Mouth: Mucous membranes are moist. Pharynx: Oropharynx is clear. Eyes: Extraocular Movements: Extraocular movements intact. Pupils: Pupils are equal, round, and reactive to light. Neck: Vascular: No carotid bruit. Cardiovascular: Rate and Rhythm: Normal rate and regular rhythm. Heart sounds: Normal heart sounds. No murmur heard. Pulmonary: Effort: Pulmonary effort is normal. Breath sounds: Normal breath sounds. Abdominal: General: Bowel sounds are normal. Palpations: Abdomen is soft. Musculoskeletal: General: Normal range of motion. Cervical back: Normal range of motion. Lymphadenopathy: Cervical: No cervical adenopathy. Skin: General: Skin is warm and dry. Neurological: General: No focal deficit present. Mental Status: She is alert and oriented to person, place, and time. Comments: Diabetic foot check: Normal strength and range of motion of toes, feet, and ankles bilaterally. No joint deformity. No cyanosis or clubbing. 100% sensation with 10 gram filament. Dorsalis pedis pulses intact bilaterally. Capillary refill at the toes was less than 2 seconds. Light touch sensation intact bilaterally. Hair growth present on feet and toes bilaterally. No skin breakdown, erythema, rub spots, blisters, scaling, or ulcers. No calluses or corns. Toenails thin and not ingrown.No evidence of fungal infection. Psychiatric: Mood and Affect: Mood normal. An electronic signature was used to authenticate this note. Rigo Young MD 11/13/2022 2:53 PM documented in this [facility]04-11-2023 History of Present illness Narrative* Samira Fritz MA - 11/13/2022 2:00 PM EDT Patient verified by last name and date of . Patient wants a fire extinguisher repairer in the room during during the visit. no Department Sales Manager na * Rigo Young MD - 11/13/2022 2:00 PM EDT Images from the original note were not included. 11/13/2022 Crystal Schultz (: 1970) is a 52 y.o. 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 Annual physical exam - CBC 2. Primary hypertension Assessment & Plan: Initially blood pressure was elevated, recheck was improved but still borderline high we will have her follow-up in 1 week for blood pressure check, continue metoprolol 50 mg daily Orders: - Comprehensive metabolic panel 3. Psoriasis Assessment & Plan: Stable, currently on no medications 4. Migraine without aura and without status migrainosus, not intractable Assessment & Plan: Stable, continue Nurtec 75 mg and Imitrex as needed. 5. Type 2 diabetes mellitus without complication, without long-term current use of insulin ([facility]) ([facility]) Assessment & Plan: Control unknown, continue metformin 500 mg twice a day and will get updated lab work. Orders: - Comprehensive metabolic panel - Hemoglobin A1c - Microalbumin / creatinine urine ratio - HP Diabetic Foot Exam 6. Screening for lipid disorders - Lipid panel Follow up in about 6 months (around 05/15/2023). SUBJECTIVE/OBJECTIVE: TONY Murray comes in today to establish as a new patient, she needs a annual exam and she does see COMPLIANCE CLERK for her Paps. She says she has history of diabetes and she says she does not believe had an A1c done since she was put on her metformin and she thinks that is been a couple years, she says she checks her blood sugar if she starts feeling like she is not feeling well and thinks it may be elevated so she does not have any blood sugar numbers. She also has a history of hypertension blood pressure is elevated today we will recheck that prior to discharge and she is on metoprolol for blood pressure. She has history of migraines for which she takes medication once or twice a month and she also has a history of psoriasis and currently is on no medications. She really has no complaints today, she needs fasting lab work. Review of Systems Constitutional: Negative for chills and fever. Respiratory: Negative for shortness of breath. Cardiovascular: Negative for chest pain and palpitations. Gastrointestinal: Negative for abdominal pain, blood in stool, constipation and diarrhea. Genitourinary: Negative for dyspareunia, dysuria, frequency, hematuria and urgency. Neurological: Negative for weakness and numbness. Psychiatric/Behavioral: Negative for dysphoric mood. The patient is not nervous/anxious. Vitals: 11/13/22 1410 11/13/22 1441 BP: (!) 163/96 (!) 140/95 Pulse: 96 98 Weight: 191 lb 9.6 oz (86.9 kg) Height: 5' 0.5 (1.537 m) Physical Exam Vitals and nursing note reviewed. Constitutional: General: She is not in acute distress. Appearance: Normal appearance. She is obese. HENT: Head: Normocephalic. Right Ear: Tympanic membrane, ear canal and external ear normal. Left Ear: Tympanic membrane, ear canal and external ear normal. Mouth/Throat: Mouth: Mucous membranes are moist. Pharynx: Oropharynx is clear. Eyes: Extraocular Movements: Extraocular movements intact. Pupils: Pupils are equal, round, and reactive to light. Neck: Vascular: No carotid bruit. Cardiovascular: Rate and Rhythm: Normal rate and regular rhythm. Heart sounds: Normal heart sounds. No murmur heard. Pulmonary: Effort: Pulmonary effort is normal. Breath sounds: Normal breath sounds. Abdominal: General: Bowel sounds are normal. Palpations: Abdomen is soft. Musculoskeletal: General: Normal range of motion. Cervical back: Normal range of motion. Lymphadenopathy: Cervical: No cervical adenopathy. Skin: General: Skin is warm and dry. Neurological: General: No focal deficit present. Mental Status: She is alert and oriented to person, place, and time. Comments: Diabetic foot check: Normal strength and range of motion of toes, feet, and ankles bilaterally. No joint deformity. No cyanosis or clubbing. 100% sensation with 10 gram filament. Dorsalis pedis pulses intact bilaterally. Capillary refill at the toes was less than 2 seconds. Light touch sensation intact bilaterally. Hair growth present on feet and toes bilaterally. No skin breakdown, erythema, rub spots, blisters, scaling, or ulcers. No calluses or corns. Toenails thin and not ingrown.No evidence of fungal infection. Psychiatric: Mood and Affect: Mood normal. An electronic signature was used to authenticate this note. Rigo Young MD 11/13/2022 2:53 PM documented in this [facility]04-11-2023 Note* Addendum Note - Rigo Young MD - 11/13/2022 2:00 PM EDTAddended by: RIGO YOUNG on: 11/14/2022 05:42 AM Modules accepted: [id number]* Addendum Note - Rigo Young MD - 11/13/2022 2:00 PM EDTAddended by: RIGO YOUNG on: 11/14/2022 05:42 AM Modules accepted: Orders [facility] note* Diagnosis Acute recurrent maxillary sinusitis- Primary Acute maxillary sinusitis Malaise and fatigue Other malaise and fatigue Chest pain, unspecified type documented in this encounter [facility] Work Phone: Evaluation note* Diagnosis Annual physical exam- Primary Routine general medical examination at a health care facility Primary hypertension Unspecified essential hypertension Psoriasis Other psoriasis Migraine without aura and without status migrainosus, not intractable Type 2 diabetes mellitus without complication, without long-term current use of insulin ([facility]/HCC) ([facility]) Screening for lipid disorders [facility]* Diagnosis Annual physical exam- Primary Routine general medical examination at a health care facility Primary hypertension Unspecified essential hypertension Psoriasis Other psoriasis Migraine without aura and without status migrainosus, not intractable Type 2 diabetes mellitus without complication, without long-term current use of insulin (CMS/HCC) ([facility]) Screening for lipid disorders Mixed hyperlipidemia [facility]* Diagnosis Annual physical exam- Primary Routine general medical examination at a [facility] care facility Primary hypertension Unspecified essential hypertension Psoriasis Other psoriasis Migraine without aura and without status migrainosus, not intractable Type 2 diabetes mellitus without complication, without long-term current use of insulin (CMS/HCC) ([facility]) Screening for lipid disorders Mixed hyperlipidemia [facility]* Diagnosis Onset Date Resolution Status Adverse effect of correct me dicinal substance properly administered acute Type 2 diabetes mellitus with hyperglycemia acute Flank pain acute Frequency of urination acute Type 2 diabetes mellitus with hyperglycemia acute [facility] Work Phone: Evaluation note* Diagnosis Encounter for screening mammogram for malignant neoplasm of breast [facility]* Diagnosis Encounter for screening mammogram for malignant neoplasm of breast- Primary Encounter for screening mammogram for malignant neoplasm of breast [facility]* Diagnosis Annual physical exam- Primary Routine general medical examination at a health care facility Primary hypertension Unspecified essential hypertension Psoriasis Other psoriasis Migraine without aura and without status migrainosus, not intractable Type 2 diabetes mellitus without complication, without long-term current use of insulin (CMS/HCC) ([facility]) Screening for lipid disorders Mixed hyperlipidemia Encounter for screening mammogram for malignant neoplasm of breast [facility]* Diagnosis Annual physical exam- Primary Routine general medical examination at a health care facility Primary hypertension Unspecified essential hypertension Psoriasis Other psoriasis Migraine without aura and without status migrainosus, not intractable Type 2 diabetes mellitus without complication, without long-term current use of insulin (CMS/HCC) (HCC) Screening for lipid disorders Mixed hyperlipidemia Encounter for screening mammogram for malignant neoplasm of breast- Primary Encounter for screening mammogram for malignant neoplasm of breast [facility]* Diagnosis Renal calculi- Primary Calculus of kidney Ureteral calculi Calculus of ureter Obesity, Class II, BMI 35-39.9 Obesity, unspecified Ureteral calculi Calculus of ureter Leukocytosis Leukocytosis, unspecified Obesity, Class I, BMI 30-34.9 Obesity, unspecified Ureteral stone- Primary Calculus of ureter documented [facility] this [facility] (narrative)No reason for referral information availableWBellevue Hospital Work Phone: Advance Directives No Advanced Directives Records FoundDocuments on File Type Date Recorded Patient Retention Manager Expl anation Advance Directives and Living Will Power of Field Mechanic Documents on File Type Date Recorded Patient Retention Manager Expl anation ACP-Advance Directive ACP-Power of Field Mechanic Date Activated Date Inactivated Comments 04/14/2025 10:36 AM 04/15/2025 6:49 PM Question Answer Comments Full Code Order Discussed With: Patient Summary Purpose Family History No Family History Records Found Relationship Condition Age at Onset Recorded Date/T tim Not Specified Migraine aura without headache Unknown father Diabetes mellitus Unknown mother Malignant neoplasm of breast Unknown Malignant neoplasm of colon Unknown Chief Complaint and Reason for Visit Chief Complaint Diabetes Mellitus Ty pe 2 A1c Urinary tract infection Reason for Visit Adverse effect of co rrect medicinal substance properly administered Type 2 diabetes mellitus with hyperglycemia Flank pain Frequency of urination Type 2 diabetes mellitus with hyperglycemia Chief Complaint Admit Date Diabetes Mellitus Type 2 A1c meds December 242024 2:51pm [facility] December 25, 2024 1:11a m Reason for Visit Admit Date Diabetes mellitus type 2 with complicati ons December 24, 2024 2:51pm Herniated intervertebral disc of lumbar spine December 24, 2024 2:51pm Radicular pain of thoracic region December 242024 2:51pm Hypertension December 24, 2024 2:51p m Additional Source Comments INFORMATION SOURCE (unrecogn ized section and content) DATE CREATED AUTHOR 09/06/2019 [employer] DATE CREATED AUTHOR AUTHOR'S ORGANIZ ATION 02/20/2020 [facility] DATE CREATED AUTHOR AUTHOR'S ORGANIZ ATION 05/23/2020 [facility] DATE CREATED AUTHOR AUTHOR'S ORGANIZ ATION 10/19/2022 [facility] DATE CREATED AUTHOR AUTHOR'S ORGANIZ ATION 07/16/2024 [facility] DATE CREATED AUTHOR AUTHOR'S ORGANIZ ATION 01/02/2025 [facility] DATE CREATED AUTHOR AUTHOR'S ORGANIZ ATION 04/22/2025 [facility] DATE CREATED AUTHOR AUTHOR'S ORGANIZ ATION 06/11/2025 [facility] Source Comments (unrecognize d section and content) In the event this informatio n is protected by the Federal Confidentiality of Alcohol and Drug Abuse Patient Records regulations: The Federal rules restrict any use of the information to criminally investigate or prosecute any alcohol or drug abuse patient.[facility] the event this information is protected by the Federal Confidentiality of Alcohol and Drug Abuse Patient Records regulations: The Federal rules restrict any use of the information to criminally investigate or prosecute any alcohol or drug abuse patient.[facility] the event this information is protected by the Federal Confidentiality of Alcohol and Drug Abuse Patient Records regulations: The Federal rules restrict any use of the information to criminally investigate or prosecute any alcohol or drug abuse patient.[facility] Reason for Visit (unrecogniz ed section and content) Reason Comments Arm Pain Facial Pain Reason Comments New Patient Medication Check Establish Care Health Maintenance Hep c/hiv- refusePap /mammogram- pt has appt in 05/13/23 with anode machine operator in [place] Care Teams (unrecognized sec tion and content) Spot Remover Relationship Specialty Start Date End Date Rigo Young MD [address] [place] [address] [phone] PCP - General Family Medicine 10/23/22 Spot Remover Relationship Specialty Start Date End Date Rigo Young MD [address] [place] [address] [id number] PCP - General Family Medicine 10/23/22 Spot Remover Relationship Specialty Start Date End Date Rigo Young MD [address] [place] [address] [phone] PCP - General Family Medicine 10/23/22 Team Status: Active Member Role Status Dates MIHAI ECHOLS Family Provider Active Herlinda Zapata RETINAL SURGEON, RETINAL SURGEON-C Primary Care Provider Active Team Status: Inactive Member Role Status Dates Herlinda Zapata RETINAL SURGEON, RETINAL SURGEON-C Primary Care Pr ovider, Attending Provider, Referring Provider Active Team Status: Inactive Member Role Status Dates Herlinda Zapata RETINAL SURGEON, RETINAL SURGEON-C Primary Care Provider, Attend ing Provider Active Spot Remover Relationship Specialty Start Date End Date Rigo Young MD [address] [place] [address] [phone] PCP - General Family Medicine 10/23/22 Spot Remover Relationship Specialty Start Date End Date Rigo Young MD [address] [place] [address] [phone] PCP - General Family Medicine 10/23/22 04/23/23 Team Status: Inactive Member Role Status Dates Herlinda Zapata RETINAL SURGEON, RETINAL SURGEON-C Primary Care Provider Active Start: December 24, 2024 End: December 24, 2024 Herlinda Zapata RETINAL SURGEON, RETINAL SURGEON-C Attending Provider Active Start: December 24, 2024 End: December 24, 2024 Herlinda Zapata RETINAL SURGEON, RETINAL SURGEON-C Referring Provider Active Start: December 24, 2024 End: December 24, 2024 Team Status: Inactive Member Role Status Dates Herlinda Zapata RETINAL SURGEON, RETINAL SURGEON-C Primary Care Provider Active Start: December 25, 2024 End: December 25, 2024 Herlinda Zapata RETINAL SURGEON, RETINAL SURGEON-C Attending Provider Active Start: December 25, 2024 End: December 25, 2024 Herlinda Zapata RETINAL SURGEON, RETINAL SURGEON-C Referring Provider Active Start: December 25, 2024 End: December 25, 2024 Spot Remover Relationship Specialty Start Date End Date Herlinda Zapata, BANANA GRADER.COAL WASHER [address] [place] [address] [phone] PCP - General Family Medicine 04/14/25 Spot Remover Relationship Specialty Start Date End Date Herlinda Zapata APRN.COAL WASHER [address] [place] [address] [phone] PCP - General Family Medicine 04/14/25 Goals (unrecognized section and content) Goals may be documented in a n alternate sectionGoals may be documented in an alternate section FOR RECORDS PERTAINING TO PATIENTS WHO ARE OR HAVE BEEN ENROLLED IN A CHEMICAL DEPENDENCY/SUBSTANCEABUSE PROGRAM, SOME INFORMATION MAY BE OMITTED. This clinical summary was aggregated from multiple sources. Caution should be exercised in using it in the provision of clinical care. This summary normalizes information from multiple sources, and as a consequence, information in this document may materially change the coding, format and clinical context of patient data. In addition, data may be omitted in some cases. CLINICAL DECISIONS SHOULD BE BASED ON THE PRIMARY CLINICAL RECORDS. [facility] [employer] provides no warranty or guarantee of the accuracy or completeness of information in this document.
[2025-06-30 22:21] LABS: Hematocrit 40.0 % (37-47); Hemoglobin 12.6 g/dL (12.0-15.0); Immature Granulocytes Count 0.020 X10^3/uL (0.0-0.0); Mean Corp Hgb Conc 31.5 g/dL (32-36); Mean Corpuscular Volume 87.5 fL (81-99); Mean Platelet Vol. 11.0 fl (6.2-12.0); NRBC Flagged by Analyzer 0 % (0-5); Platelet Count 322 K/mm3 (150-450); RBC Distribution Width CV 12.9 % (11.6-14.6); RBC Distribution Width SD 41.1 fl (35.1-43.9); Red Blood Count 4.57 M/mm3 (4.2-5.4); White Blood Count 9.0 K/mm3 (4.4-11.0)
[2025-06-30 22:30] LABS: AST(SGOT) 25 U/L (<=31); Alanine Aminotransfer ALT/SGPT 28 U/L (<=34); Albumin, Serum 4.6 g/dL (3.5-5.0); Alkaline Phosphatase 56 U/L (35-104); Anion Gap 13 (5-15); BUN 18 mg/dL (4-19); BUN/Creat Ratio 28.5 RATIO (10-20); Calcium,Total 10.2 mg/dL (7.6-11.0); Carbon Dioxide 26.1 mmol/L (21.0-32.0); Chloride 101 mmol/L (98-108); Cholesterol 209 mg/dL (<=200); Globulin 2.7 g/dL (2.2-4.2); Glucose 155 mg/dL (70-99); Low Density Lipoprotein Calc. 76 mg/dL; Potassium 4.2 mmol/L (3.3-5.1); Triglycerides 647 mg/dL; Very Low Density Lipoprotein 129 mg/dL (5-40); cholesterol:hdl ratio screen 6.74
== END | disposition home or self-care (01) ==
LOC: LABSPEC 22:08
PROVIDERS: PCP Nurse Practitioner; Visit Provider Nurse Practitioner
DX: E11.8 Type 2 diabetes mellitus with unspecified complications (principal); N20.0 Calculus of kidney; G43.111 Migraine with aura, intractable, with status migrainosus; E78.1 Pure hyperglyceridemia
CPT/HCPCS: 80053; 80061; 85025